=== PATIENT | female | born 1970 | race Caucasian/White ===

== ENCOUNTER → 2017-08-04 08:10 | Outpatient (CLI) | payer OTHER, SELFPAY ==
[2017-08-04 09:12] LABS: Absolute Lymphocyte Count 4.64 X10^3/ul (0.83-4.51); Absolute Neutrophil Count 4.4 X10^3/uL (2.0-7.7); Basophil# 0.02 X10^3/uL; Basophil% 0.2 % (0-1); Hematocrit 41.5 % (37-47); Hemoglobin 13.2 g/dl (12.0-15.0); Lymphocyte # 4.64 X10^3/ul (4.0); Lymphocyte % 46.4 % (19-41); Mean Corp Hgb Conc 31.8 g/gl (32-36); Mean Corpuscular Hgb 29.9 pg (27.0-32.0); Mean Corpuscular Volume 93.9 fL (81-99); Mean Platelet Vol. 8.8 fl (6.2-12.0); Monocyte# 0.66 X10^3/uL; Monocyte% 6.6 % (0-10); Neutrophil # 4.38 X10^3/uL (2.7-7.7); Neutrophil % 43.7 % (47-70); Platelet Count 351 K/mm3 (150-450); RBC Distribution Width CV 13.8 % (11.6-14.6); RBC Distribution Width SD 47.4 fl (35.1-43.9); Red Blood Count 4.42 M/mm3 (4.2-5.4)
[2017-08-04 09:13] LABS: POSITIVE COUNT NO; POSITIVE DIFFERENTIAL NO; POSITIVE MORPHOLOGY NO
[2017-08-04 09:37] LABS: ALB/GLOB Ratio 0.9 RATIO (0.9-2.4); AST(SGOT) 20 U/L (15-37); Alanine Aminotransfer ALT/SGPT 28 U/L (13-56); Albumin, Serum 3.6 g/dL (3.2-5.0); Alkaline Phosphatase 97 U/L (45-117); Anion Gap 8 (5-15); BUN 10 mg/dL (7-18); BUN/Creat Ratio 10.8 RATIO (10-20); Calcium,Total 8.8 mg/dL (8.5-10.1); Chloride 103 mmol/L (98-107); Creatinine, Serum 0.92 mg/dL (0.55-1.02); EST Glomerular Filtration Rate 70 mL/min (>60); Est Glom Filt Rate - Afr Amer 84 mL/min (>60); Globulin 3.9 g/dL (2.2-4.2); Glucose 148 mg/dL (74-106); Potassium 3.6 mmol/L (3.5-5.1); Protein, Total 7.5 g/dL (6.4-8.2); Sodium Level 136 mmol/L (136-145)
== END ==
PROVIDERS: Family Provider Family Medicine; PCP Family Medicine; Visit Provider Internal Medicine Rheumatology
DX: M06.4 Inflammatory polyarthropathy (principal); M35.00 Sjogren syndrome, unspecified; G43.909 Migraine, unspecified, not intractable, without status migrainosus; M51.36 Other intervertebral disc degeneration, lumbar region; Z79.899 Other long term (current) drug therapy
CPT/HCPCS: 36415; 80053; 85025

== ENCOUNTER 2017-08-26 11:57 | Emergency (ER) | payer OTHER, SELFPAY ==
[2017-08-26 11:58] VITALS: BP 134/84; PULSE 104; RESP 16; TEMP 36.6; O2SAT 99; BMI 41.1
--- NOTE | 2017-08-26 13:37 | ED.VISSUMM ---
- ER Visit Summary Date of Service: 08/26/17 Chief Complaint: Back pain History of Present Illness: The patient is a 47 F who works at the [employer]. Patient states that she has been lifting and doing more physically recently. 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 Since that time she has had a burning and aching down the midportion of her lumbar spine and somewhat into the left SI joint region. Patient states she has occasional radiation to her left leg. She has occasional tingling in her left leg. There has been no problems with bowel or bladder control. Patient is currently on methotrexate and prednisone for rheumatoid arthritis. She is already on Ultram and Flexeril as well. Physical Examination: Vital signs unremarkable. Patient sitting in a bedside chair. She is in no acute distress. Head and neck examination unremarkable. Heart is regular rate and rhythm. Lung sounds are clear. Abdomen is soft and nontender. Back examination was reproducible tenderness over the lumbar region midline as well as in the left SI joint. There is no ecchymosis. Neuro exam reveals good strength and sensation in the lower extremities on testing. She has strong distal pulses. Test Results: Because the patient is on methotrexate and prednisone I did a lumbar spine x-ray. This is read as evidence of spurs but no fracture. Emergency Department Course and Treatment: Patient is currently on Flexeril and Ultram without improvement in her pain. She was switched to Valium and a short course of Percocet. She will be given a prednisone burst as well as anti-inflammatories. She will follow-up with [facility]. Treatment Plan: [] Disposition: Discharge Impression: Lumbar strain This note was generated with [employer] dictation software. It may contain incorrect words, spelling, and punctuation that were not noted in review of the chart prior to signing ED Disposition - Plan for ED Patient: Disposition: Home or Assisted Living Chief Complaint: Back Instructions: ED Sprain Strain Lumbar Prescriptions: Oxycodone HCl/Acetaminophen [Percocet 5/325] 1 tablet PO Q6H PRN PRN 3 Days #12 tablet PRN Reason: Pain Diazepam [Valium] 5 mg PO Q8 PRN #10 tablet PRN Reason: Muscle Spasm Naproxen [Naprosyn] 500 mg PO BID PRN #20 tab Prednisone [Deltasone] 60 mg PO DAILY #15 tab Referrals: [facility] [[facility] PHYSICIANS] - 3-5 Days
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
[2017-08-26 15:44] VITALS: BP 132/91; PULSE 94; RESP 16; O2SAT 100
--- NOTE | 2017-08-26 16:09 | ED.DEP ---
ED Disposition - Plan for ED Patient: Disposition: Home or Assisted Living Chief Complaint: Back Instructions: ED Sprain Strain Lumbar Prescriptions: Oxycodone HCl/Acetaminophen [Percocet 5/325] 1 tablet PO Q6H PRN PRN 3 Days #12 tablet PRN Reason: Pain Diazepam [Valium] 5 mg PO Q8 PRN #10 tablet PRN Reason: Muscle Spasm Naproxen [Naprosyn] 500 mg PO BID PRN #20 tablet Prednisone [Deltasone] 60 mg PO DAILY #15 tablet Referrals: [facility] [GROUP OF PHYSICIANS] - 3-5 Days
[2017-08-26 16:19] VITALS: BP 132/91; PULSE 94; RESP 16; O2SAT 100
== END 2017-08-26 16:20 | disposition home or self-care (01) ==
PROVIDERS: Emergency Provider Emergency Medicine; Family Provider Family Medicine; PCP Family Medicine
DX: S39.012A Strain of muscle, fascia and tendon of lower back, initial encounter (principal); X50.1XXA Overexertion from prolonged static or awkward postures, initial encounter; Y93.F9 Activity, other caregiving; Y92.9 Unspecified place or not applicable; Y99.9 Unspecified external cause status; M06.9 Rheumatoid arthritis, unspecified; Z79.899 Other long term (current) drug therapy; Z79.52 Long term (current) use of systemic steroids; F41.9 Anxiety disorder, unspecified; F32.9 Major depressive disorder, single episode, unspecified; G43.909 Migraine, unspecified, not intractable, without status migrainosus
CPT/HCPCS: 72100; 99282

== ENCOUNTER → 2017-10-20 08:37 | Outpatient (CLI) | payer OTHER, SELFPAY ==
[2017-10-20 09:12] LABS: Absolute Lymphocyte Count 2.53 X10^3/ul (0.83-4.51); Absolute Neutrophil Count 4.9 X10^3/uL (2.0-7.7); Basophil# 0.02 X10^3/uL; Basophil% 0.3 % (0-1); Eosinophil# 0.28 X10^3/uL; Eosinophils% 3.5 % (0-5); Hematocrit 38.8 % (37-47); Hemoglobin 12.6 g/dl (12.0-15.0); Lymphocyte # 2.53 X10^3/ul (4.0); Lymphocyte % 31.7 % (19-41); Mean Corp Hgb Conc 32.5 g/gl (32-36); Mean Corpuscular Hgb 30.2 pg (27.0-32.0); Mean Platelet Vol. 9.2 fl (6.2-12.0); Monocyte% 2.5 % (0-10); Neutrophil # 4.93 X10^3/uL (2.7-7.7); Neutrophil % 61.7 % (47-70); Platelet Count 358 K/mm3 (150-450); RBC Distribution Width CV 14.4 % (11.6-14.6); RBC Distribution Width SD 47.3 fl (35.1-43.9); Red Blood Count 4.17 M/mm3 (4.2-5.4)
[2017-10-20 09:15] LABS: POSITIVE COUNT NO; POSITIVE DIFFERENTIAL NO; POSITIVE MORPHOLOGY NO
[2017-10-20 09:36] LABS: AST(SGOT) 33 U/L (15-37); Alanine Aminotransfer ALT/SGPT 46 U/L (13-56); Albumin, Serum 3.8 g/dL (3.2-5.0); Alkaline Phosphatase 78 U/L (45-117); Anion Gap 6 (5-15); BUN 12 mg/dL (7-18); BUN/Creat Ratio 12.7 RATIO (10-20); Chloride 104 mmol/L (98-107); Creatinine, Serum 0.94 mg/dL (0.55-1.02); EST Glomerular Filtration Rate 68 mL/min (>60); Est Glom Filt Rate - Afr Amer 82 mL/min (>60); Globulin 3.7 g/dL (2.2-4.2); Glucose 137 mg/dL (74-106); Protein, Total 7.5 g/dL (6.4-8.2); Sodium Level 138 mmol/L (136-145)
== END ==
PROVIDERS: Family Provider Family Medicine; PCP Family Medicine; Visit Provider Internal Medicine Rheumatology
DX: M06.4 Inflammatory polyarthropathy (principal); M35.00 Sjogren syndrome, unspecified; G43.909 Migraine, unspecified, not intractable, without status migrainosus; M51.36 Other intervertebral disc degeneration, lumbar region; Z79.899 Other long term (current) drug therapy
CPT/HCPCS: 36415; 80053; 85025

== ENCOUNTER → 2017-10-21 15:35 | Outpatient (CLI) | payer OTHER, SELFPAY ==
--- NOTE | 2017-10-21 15:38 | RAD_ITS ---
STUDY: X-RAY CHEST REASON FOR EXAM: Female, 47 years old. New medications. TECHNIQUE: PA and lateral views of the chest. COMPARISON: Prior comparison studies are not available for review at this time. FINDINGS: The lungs are clear and expanded. There is no demonstrated pleural abnormality. Normal size heart. Normal mediastinum and tiana. Normal visualized pulmonary arteries. Normal visualized aortic arch and descending thoracic aorta. Normal visualized thoracic spine. Normal visualized ribs, clavicles, and shoulders. There is no demonstrated abnormality of the visualized soft tissue structures of the upper abdomen. RAD/Chest PA and Lateral IMPRESSION: No active pulmonary disease. Electronically Signed: Stanley Childs MD at 3:12 EDT Tel , Service support ,
[2017-10-24 04:08] LABS: QNTFERON TB Ag Minus Nil Value 0 IU/mL (.); QNTFERON TB Ag Value 0.04 IU/mL (.); QNTFERON TB Mitogen Value > 10.00 IU/mL (.); QNTFERON TB Nil Value 0.04 IU/mL (.)
[2017-10-24 14:22] LABS: QNTIFERON TB Gold Negative (Negative)
== END ==
PROVIDERS: Family Provider Family Medicine; PCP Family Medicine; Visit Provider Internal Medicine Rheumatology
DX: M06.4 Inflammatory polyarthropathy (principal); M51.36 Other intervertebral disc degeneration, lumbar region; M35.00 Sjogren syndrome, unspecified; G43.909 Migraine, unspecified, not intractable, without status migrainosus; Z79.899 Other long term (current) drug therapy
CPT/HCPCS: 36415; 71046; 86480

== ENCOUNTER → 2017-12-01 15:18 | Outpatient (CLI) | payer OTHER, SELFPAY ==
[2017-12-01 18:03] LABS: Vitamin B12 507 pg/mL (211-911); Vitamin D,25 Hydroxy 17.3 ng/mL (29.95-100.01)
[2017-12-01 18:47] LABS: Iron 67 ug/dL (50-170); Thyroid Stim Hormone (TSH) 2.26 uIU/mL (0.358-3.74)
== END ==
PROVIDERS: Family Provider Family Medicine; PCP Family Medicine; Visit Provider Family Medicine
DX: G62.9 Polyneuropathy, unspecified (principal)
CPT/HCPCS: 36415; 82306; 82607; 83540; 83735; 84443

== ENCOUNTER → 2018-02-05 14:03 | Outpatient (CLI) | payer OTHER, SELFPAY ==
[2018-02-05 15:43] LABS: Absolute Lymphocyte Count 2.53 X10^3/ul (0.83-4.51); Absolute Neutrophil Count 3.6 X10^3/uL (2.0-7.7); Basophil# 0.02 X10^3/uL; Basophil% 0.3 % (0-1); Hemoglobin 12.7 g/dl (12.0-15.0); Lymphocyte # 2.53 X10^3/ul (4.0); Lymphocyte % 35.2 % (19-41); Mean Corp Hgb Conc 32.6 g/gl (32-36); Mean Corpuscular Hgb 29.5 pg (27.0-32.0); Mean Corpuscular Volume 90.7 fL (81-99); Mean Platelet Vol. 9.1 fl (6.2-12.0); Monocyte# 0.53 X10^3/uL; Monocyte% 7.4 % (0-10); Neutrophil # 3.59 X10^3/uL (2.7-7.7); Platelet Count 336 K/mm3 (150-450); RBC Distribution Width CV 13.2 % (11.6-14.6); RBC Distribution Width SD 43.1 fl (35.1-43.9); White Blood Count 7.2 K/mm3 (4.4-11.0)
[2018-02-05 15:56] LABS: POSITIVE COUNT NO; POSITIVE DIFFERENTIAL NO; POSITIVE MORPHOLOGY NO
[2018-02-05 16:06] LABS: ALB/GLOB Ratio 1.1 RATIO (0.9-2.4); AST(SGOT) 32 U/L (15-37); Alanine Aminotransfer ALT/SGPT 47 U/L (13-56); Albumin, Serum 3.8 g/dL (3.2-5.0); Alkaline Phosphatase 72 U/L (45-117); Anion Gap 9 (5-15); BUN 17 mg/dL (7-18); BUN/Creat Ratio 19.1 RATIO (10-20); Calcium,Total 8.9 mg/dL (8.5-10.1); Chloride 103 mmol/L (98-107); Creatinine, Serum 0.89 mg/dL (0.55-1.02); EST Glomerular Filtration Rate 73 mL/min (>60); Est Glom Filt Rate - Afr Amer 88 mL/min (>60); Globulin 3.4 g/dL (2.2-4.2); Glucose 119 mg/dL (74-106); Potassium 3.9 mmol/L (3.5-5.1); Protein, Total 7.2 g/dL (6.4-8.2); Sodium Level 138 mmol/L (136-145)
[2018-02-05 16:16] LABS: Vitamin D,25 Hydroxy 54.2 ng/mL (29.95-100.01)
== END ==
PROVIDERS: Nurse Practitioner Family; Family Provider Family Medicine; PCP Family Medicine; Referring Provider Family Medicine; Visit Provider Family Medicine
DX: E55.9 Vitamin D deficiency, unspecified (principal); R53.83 Other fatigue
CPT/HCPCS: 36415; 80053; 82306; 85025

== ENCOUNTER → 2018-05-18 16:40 | Outpatient (CLI) | payer SELFPAY ==
[2018-05-18 17:58] LABS: Absolute Lymphocyte Count 3.17 X10^3/ul (0.83-4.51); Absolute Neutrophil Count 4.8 X10^3/uL (2.0-7.7); Basophil# 0.02 X10^3/uL; Basophil% 0.2 % (0-1); Eosinophil# 0.32 X10^3/uL; Eosinophils% 3.6 % (0-5); Hematocrit 43.6 % (37-47); Hemoglobin 13.9 g/dl (12.0-15.0); Lymphocyte # 3.17 X10^3/ul (4.0); Lymphocyte % 35.6 % (19-41); Mean Corp Hgb Conc 31.9 g/gl (32-36); Mean Corpuscular Hgb 29.8 pg (27.0-32.0); Mean Corpuscular Volume 93.6 fL (81-99); Mean Platelet Vol. 9.2 fl (6.2-12.0); Monocyte# 0.62 X10^3/uL; Neutrophil # 4.76 X10^3/uL (2.7-7.7); Neutrophil % 53.5 % (47-70); Platelet Count 389 K/mm3 (150-450); RBC Distribution Width CV 13.8 % (11.6-14.6); RBC Distribution Width SD 45.7 fl (35.1-43.9); Red Blood Count 4.66 M/mm3 (4.2-5.4); White Blood Count 8.9 K/mm3 (4.4-11.0)
[2018-05-18 18:02] LABS: POSITIVE COUNT NO; POSITIVE DIFFERENTIAL NO; POSITIVE MORPHOLOGY NO
[2018-05-18 18:13] LABS: AST(SGOT) 16 U/L (15-37); Alanine Aminotransfer ALT/SGPT 26 U/L (13-56); Albumin, Serum 3.7 g/dL (3.2-5.0); Alkaline Phosphatase 76 U/L (45-117); Anion Gap 13 (5-15); BUN 13 mg/dL (7-18); BUN/Creat Ratio 13.1 RATIO (10-20); Chloride 104 mmol/L (98-107); Creatinine, Serum 0.99 mg/dL (0.55-1.02); EST Glomerular Filtration Rate 64 mL/min (>60); Est Glom Filt Rate - Afr Amer 77 mL/min (>60); Globulin 3.7 g/dL (2.2-4.2); Glucose 118 mg/dL (74-106); Potassium 4.1 mmol/L (3.5-5.1); Protein, Total 7.4 g/dL (6.4-8.2); Sodium Level 141 mmol/L (136-145)
== END ==
LOC: MTLAB 16:42
PROVIDERS: Family Provider Family Medicine; PCP Family Medicine; Referring Provider Internal Medicine Rheumatology; Visit Provider Internal Medicine Rheumatology
DX: M06.09 Rheumatoid arthritis without rheumatoid factor, multiple sites (principal); M35.00 Sjogren syndrome, unspecified; G43.909 Migraine, unspecified, not intractable, without status migrainosus; M51.36 Other intervertebral disc degeneration, lumbar region; Z79.899 Other long term (current) drug therapy
CPT/HCPCS: 36415; 80053; 85025

== ENCOUNTER → 2018-08-10 16:48 | Outpatient (CLI) | payer SELFPAY ==
[2018-08-10 17:47] LABS: Absolute Lymphocyte Count 4.82 X10^3/ul (0.83-4.51); Absolute Neutrophil Count 7.4 X10^3/uL (2.0-7.7); Basophil# 0.02 X10^3/uL; Basophil% 0.2 % (0-1); Eosinophil# 0.01 X10^3/uL; Eosinophils% 0.1 % (0-5); Hematocrit 42.2 % (37-47); Hemoglobin 13.7 g/dl (12.0-15.0); Lymphocyte # 4.82 X10^3/ul (4.0); Lymphocyte % 36.3 % (19-41); Mean Corp Hgb Conc 32.5 g/gl (32-36); Mean Corpuscular Hgb 30.1 pg (27.0-32.0); Mean Corpuscular Volume 92.7 fL (81-99); Mean Platelet Vol. 8.9 fl (6.2-12.0); Monocyte# 0.96 X10^3/uL; Monocyte% 7.2 % (0-10); Neutrophil # 7.43 X10^3/uL (2.7-7.7); Platelet Count 370 K/mm3 (150-450); RBC Distribution Width CV 13.9 % (11.6-14.6); RBC Distribution Width SD 46.5 fl (35.1-43.9); Red Blood Count 4.55 M/mm3 (4.2-5.4); White Blood Count 13.3 K/mm3 (4.4-11.0)
[2018-08-10 17:53] LABS: POSITIVE COUNT NO; POSITIVE DIFFERENTIAL NO; POSITIVE MORPHOLOGY NO
[2018-08-10 18:15] LABS: ALB/GLOB Ratio 1.1 RATIO (0.9-2.4); AST(SGOT) 20 U/L (15-37); Alanine Aminotransfer ALT/SGPT 37 U/L (13-56); Albumin, Serum 3.9 g/dL (3.2-5.0); Alkaline Phosphatase 80 U/L (45-117); Anion Gap 7 (5-15); BUN 20 mg/dL (7-18); BUN/Creat Ratio 20.8 RATIO (10-20); Calcium,Total 9.4 mg/dL (8.5-10.1); Chloride 103 mmol/L (98-107); Creatinine, Serum 0.96 mg/dL (0.55-1.02); EST Glomerular Filtration Rate 66 mL/min (>60); Est Glom Filt Rate - Afr Amer 80 mL/min (>60); Globulin 3.7 g/dL (2.2-4.2); Glucose 85 mg/dL (74-106); Potassium 3.9 mmol/L (3.5-5.1); Protein, Total 7.6 g/dL (6.4-8.2); Sodium Level 140 mmol/L (136-145)
== END ==
PROVIDERS: Family Provider Family Medicine; PCP Family Medicine; Referring Provider Internal Medicine Rheumatology; Visit Provider Internal Medicine Rheumatology
DX: M06.09 Rheumatoid arthritis without rheumatoid factor, multiple sites (principal); M35.00 Sjogren syndrome, unspecified; G43.909 Migraine, unspecified, not intractable, without status migrainosus; M51.36 Other intervertebral disc degeneration, lumbar region; Z79.899 Other long term (current) drug therapy
CPT/HCPCS: 36415; 80053; 85025

== ENCOUNTER → 2018-11-06 15:49 | Outpatient (CLI) | payer SELFPAY ==
[2018-11-06 17:24] LABS: Absolute Lymphocyte Count 3.49 X10^3/uL (0.83-4.51); Absolute Neutrophil Count 3.7 X10^3/uL (2.0-7.7); Basophil# 0.03 X10^3/uL; Basophil% 0.4 % (0-1); Eosinophil# 0.25 X10^3/uL; Eosinophils% 3.1 % (0-5); Hematocrit 42.5 % (37-47); Hemoglobin 14.1 g/dL (12.0-15.0); Lymphocyte # 3.49 X10^3/ul (4.0); Lymphocyte % 43.4 % (19-41); Mean Corp Hgb Conc 33.2 g/dL (32-36); Mean Corpuscular Hgb 30.9 pg (27.0-32.0); Mean Corpuscular Volume 93.2 fL (81-99); Mean Platelet Vol. 9.1 fl (6.2-12.0); Monocyte# 0.55 X10^3/uL; Monocyte% 6.8 % (0-10); NRBC Flagged by Analyzer 0 % (0-5); Neutrophil # 3.71 X10^3/uL (2.7-7.7); Neutrophil % 46.1 % (47-70); Platelet Count 359 K/mm3 (150-450); RBC Distribution Width CV 13.2 % (11.6-14.6); RBC Distribution Width SD 44.4 fl (35.1-43.9); Red Blood Count 4.56 M/mm3 (4.2-5.4); White Blood Count 8.1 K/mm3 (4.4-11.0)
[2018-11-06 17:39] LABS: AST(SGOT) 17 U/L (15-37); Alanine Aminotransfer ALT/SGPT 27 U/L (13-56); Albumin, Serum 3.7 g/dL (3.2-5.0); Alkaline Phosphatase 83 U/L (45-117); Anion Gap 8 (5-15); BUN 11 mg/dL (7-18); BUN/Creat Ratio 12.6 RATIO (10-20); Calcium,Total 9.2 mg/dL (8.5-10.1); Chloride 104 mmol/L (98-107); Creatinine, Serum 0.87 mg/dL (0.55-1.02); EST Glomerular Filtration Rate 74 mL/min (>60); Est Glom Filt Rate - Afr Amer 90 mL/min (>60); Globulin 3.7 g/dL (2.2-4.2); Glucose 110 mg/dL (74-106); Potassium 3.9 mmol/L (3.5-5.1); Protein, Total 7.4 g/dL (6.4-8.2); Sodium Level 137 mmol/L (136-145)
== END ==
PROVIDERS: Family Provider Family Medicine; PCP Family Medicine; Referring Provider Internal Medicine Rheumatology; Visit Provider Internal Medicine Rheumatology
DX: M06.09 Rheumatoid arthritis without rheumatoid factor, multiple sites (principal); M35.00 Sjogren syndrome, unspecified; G43.909 Migraine, unspecified, not intractable, without status migrainosus; M51.36 Other intervertebral disc degeneration, lumbar region; Z79.899 Other long term (current) drug therapy
CPT/HCPCS: 36415; 80053; 85025

== ENCOUNTER → 2019-02-05 16:47 | Outpatient (CLI) | payer SELFPAY ==
[2019-02-05 17:37] LABS: Absolute Lymphocyte Count 3.22 X10^3/uL (0.83-4.51); Absolute Neutrophil Count 4.6 X10^3/uL (2.0-7.7); Basophil# 0.05 X10^3/uL; Basophil% 0.5 % (0-1); Eosinophil# 0.55 X10^3/uL; Hematocrit 42.3 % (37-47); Hemoglobin 13.6 g/dL (12.0-15.0); Lymphocyte # 3.22 X10^3/ul (4.0); Mean Corp Hgb Conc 32.2 g/dL (32-36); Mean Corpuscular Hgb 30.4 pg (27.0-32.0); Mean Corpuscular Volume 94.6 fL (81-99); Monocyte# 0.69 X10^3/uL; Monocyte% 7.5 % (0-10); NRBC Flagged by Analyzer 0 % (0-5); Neutrophil # 4.64 X10^3/uL (2.7-7.7); Neutrophil % 50.6 % (47-70); Platelet Count 370 K/mm3 (150-450); RBC Distribution Width CV 13.8 % (11.6-14.6); RBC Distribution Width SD 46.8 fl (35.1-43.9); Red Blood Count 4.47 M/mm3 (4.2-5.4); White Blood Count 9.2 K/mm3 (4.4-11.0)
[2019-02-05 17:58] LABS: ALB/GLOB Ratio 1.1 RATIO (0.9-2.4); AST(SGOT) 32 U/L (15-37); Alanine Aminotransfer ALT/SGPT 45 U/L (13-56); Albumin, Serum 4.1 g/dL (3.2-5.0); Alkaline Phosphatase 78 U/L (45-117); Anion Gap 6 (5-15); BUN 16 mg/dL (7-18); Calcium,Total 9.3 mg/dL (8.5-10.1); Chloride 103 mmol/L (98-107); Creatinine, Serum 0.89 mg/dL (0.55-1.02); EST Glomerular Filtration Rate 73 mL/min (>60); Est Glom Filt Rate - Afr Amer 88 mL/min (>60); Globulin 3.8 g/dL (2.2-4.2); Glucose 92 mg/dL (74-106); Potassium 4.1 mmol/L (3.5-5.1); Protein, Total 7.9 g/dL (6.4-8.2); Sodium Level 137 mmol/L (136-145)
== END ==
PROVIDERS: Family Provider Family Medicine; PCP Family Medicine; Referring Provider Internal Medicine Rheumatology; Visit Provider Internal Medicine Rheumatology
DX: M06.09 Rheumatoid arthritis without rheumatoid factor, multiple sites (principal); M35.00 Sjogren syndrome, unspecified; G43.909 Migraine, unspecified, not intractable, without status migrainosus; M51.36 Other intervertebral disc degeneration, lumbar region; Z79.899 Other long term (current) drug therapy
CPT/HCPCS: 36415; 80053; 85025

== ENCOUNTER → 2019-05-14 15:33 | Outpatient (CLI) | payer SELFPAY ==
[2019-05-14 17:44] LABS: AST(SGOT) 41 U/L (15-37); Alanine Aminotransfer ALT/SGPT 62 U/L (13-56); Albumin, Serum 3.9 g/dL (3.2-5.0); Alkaline Phosphatase 90 U/L (45-117); Anion Gap 5 (5-15); BUN 15 mg/dL (7-18); BUN/Creat Ratio 14.4 RATIO (10-20); Calcium,Total 9.3 mg/dL (8.5-10.1); Chloride 106 mmol/L (98-107); Creatinine, Serum 1.04 mg/dL (0.55-1.02); EST Glomerular Filtration Rate 60 mL/min (>60); Est Glom Filt Rate - Afr Amer 73 mL/min (>60); Globulin 3.9 g/dL (2.2-4.2); Glucose 143 mg/dL (74-106); Potassium 4.5 mmol/L (3.5-5.1); Protein, Total 7.8 g/dL (6.4-8.2); Sodium Level 138 mmol/L (136-145)
[2019-05-14 17:45] LABS: Absolute Lymphocyte Count 3.38 X10^3/uL (0.83-4.51); Absolute Neutrophil Count 6.6 X10^3/uL (2.0-7.7); Basophil# 0.03 X10^3/uL; Basophil% 0.3 % (0-1); Eosinophils% 1.8 % (0-5); Hematocrit 43.3 % (37-47); Hemoglobin 13.3 g/dL (12.0-15.0); Lymphocyte # 3.38 X10^3/ul (4.0); Mean Corp Hgb Conc 30.7 g/dL (32-36); Mean Corpuscular Hgb 28.5 pg (27.0-32.0); Mean Corpuscular Volume 92.9 fL (81-99); Mean Platelet Vol. 9.1 fl (6.2-12.0); Monocyte# 0.66 X10^3/uL; Monocyte% 6.1 % (0-10); NRBC Flagged by Analyzer 0 % (0-5); Neutrophil # 6.59 X10^3/uL (2.7-7.7); Neutrophil % 60.5 % (47-70); Platelet Count 357 K/mm3 (150-450); Red Blood Count 4.66 M/mm3 (4.2-5.4); White Blood Count 10.9 K/mm3 (4.4-11.0)
== END ==
PROVIDERS: PCP Family Medicine; Referring Provider Internal Medicine Rheumatology; Visit Provider Internal Medicine Rheumatology
DX: M06.09 Rheumatoid arthritis without rheumatoid factor, multiple sites (principal); M35.00 Sjogren syndrome, unspecified; G43.909 Migraine, unspecified, not intractable, without status migrainosus; M51.36 Other intervertebral disc degeneration, lumbar region; Z79.899 Other long term (current) drug therapy
CPT/HCPCS: 36415; 80053; 85025

== ENCOUNTER → 2019-09-01 15:52 | Outpatient (CLI) | payer SELFPAY ==
[2019-09-01 18:08] LABS: Absolute Lymphocyte Count 3.64 X10^3/uL (0.83-4.51); Absolute Neutrophil Count 6.1 X10^3/uL (2.0-7.7); Basophil# 0.04 X10^3/uL; Basophil% 0.4 % (0-1); Eosinophil# 0.32 X10^3/uL; Hemoglobin 13.8 g/dL (12.0-15.0); Lymphocyte # 3.64 X10^3/ul (4.0); Lymphocyte % 33.6 % (19-41); Mean Corp Hgb Conc 32.1 g/dL (32-36); Mean Corpuscular Hgb 29.1 pg (27.0-32.0); Mean Corpuscular Volume 90.7 fL (81-99); Monocyte# 0.68 X10^3/uL; Monocyte% 6.3 % (0-10); NRBC Flagged by Analyzer 0 % (0-5); Neutrophil # 6.11 X10^3/uL (2.7-7.7); Neutrophil % 56.3 % (47-70); Platelet Count 395 K/mm3 (150-450); RBC Distribution Width SD 46.3 fl (35.1-43.9); Red Blood Count 4.74 M/mm3 (4.2-5.4); White Blood Count 10.8 K/mm3 (4.4-11.0)
[2019-09-01 18:23] LABS: ALB/GLOB Ratio 0.9 RATIO (0.9-2.4); AST(SGOT) 32 U/L (15-37); Alanine Aminotransfer ALT/SGPT 59 U/L (13-56); Albumin, Serum 3.8 g/dL (3.2-5.0); Alkaline Phosphatase 95 U/L (45-117); Anion Gap 5 (5-15); BUN 15 mg/dL (7-18); BUN/Creat Ratio 15.6 RATIO (10-20); Calcium,Total 9.5 mg/dL (8.5-10.1); Chloride 105 mmol/L (98-107); Creatinine, Serum 0.96 mg/dL (0.55-1.02); EST Glomerular Filtration Rate 66 mL/min (>60); Est Glom Filt Rate - Afr Amer 80 mL/min (>60); Globulin 4.1 g/dL (2.2-4.2); Glucose 119 mg/dL (74-106); Potassium 4.2 mmol/L (3.5-5.1); Protein, Total 7.9 g/dL (6.4-8.2); Sodium Level 138 mmol/L (136-145)
== END ==
PROVIDERS: PCP Family Medicine; Referring Provider Internal Medicine Rheumatology; Visit Provider Internal Medicine Rheumatology
DX: M06.09 Rheumatoid arthritis without rheumatoid factor, multiple sites (principal); Z79.899 Other long term (current) drug therapy; M35.00 Sjogren syndrome, unspecified; G43.909 Migraine, unspecified, not intractable, without status migrainosus; M51.36 Other intervertebral disc degeneration, lumbar region
CPT/HCPCS: 36415; 80053; 85025

== ENCOUNTER → 2019-11-12 16:47 | Outpatient (CLI) | payer SELFPAY ==
[2019-11-12 17:23] LABS: Absolute Lymphocyte Count 4.39 X10^3/uL (0.83-4.51); Absolute Neutrophil Count 2.5 X10^3/uL (2.0-7.7); Basophil# 0.04 X10^3/uL; Basophil% 0.5 % (0-1); Eosinophil# 0.84 X10^3/uL; Hematocrit 42.3 % (37-47); Hemoglobin 13.8 g/dL (12.0-15.0); Lymphocyte # 4.39 X10^3/ul (4.0); Lymphocyte % 52.3 % (19-41); Mean Corp Hgb Conc 32.6 g/dL (32-36); Mean Corpuscular Hgb 30.1 pg (27.0-32.0); Mean Corpuscular Volume 92.4 fL (81-99); Mean Platelet Vol. 9.2 fl (6.2-12.0); Monocyte# 0.65 X10^3/uL; Monocyte% 7.7 % (0-10); NRBC Flagged by Analyzer 0 % (0-5); Neutrophil # 2.47 X10^3/uL (2.7-7.7); Neutrophil % 29.4 % (47-70); Platelet Count 353 K/mm3 (150-450); RBC Distribution Width CV 12.8 % (11.6-14.6); RBC Distribution Width SD 43.1 fl (35.1-43.9); Red Blood Count 4.58 M/mm3 (4.2-5.4); White Blood Count 8.4 K/mm3 (4.4-11.0)
[2019-11-12 18:20] LABS: ALB/GLOB Ratio 0.9 RATIO (0.9-2.4); AST(SGOT) 49 U/L (15-37); Alanine Aminotransfer ALT/SGPT 57 U/L (13-56); Albumin, Serum 3.4 g/dL (3.2-5.0); Alkaline Phosphatase 85 U/L (45-117); Anion Gap 2 (5-15); BUN 15 mg/dL (7-18); BUN/Creat Ratio 19.9 RATIO (10-20); Chloride 107 mmol/L (98-107); Creatinine, Serum 0.75 mg/dL (0.55-1.02); EST Glomerular Filtration Rate 88 mL/min (>60); Est Glom Filt Rate - Afr Amer 106 mL/min (>60); Globulin 3.8 g/dL (2.2-4.2); Glucose 152 mg/dL (74-106); Potassium 3.6 mmol/L (3.5-5.1); Protein, Total 7.2 g/dL (6.4-8.2); Sodium Level 137 mmol/L (136-145)
== END ==
PROVIDERS: PCP Family Medicine; Referring Provider Internal Medicine Rheumatology; Visit Provider Internal Medicine Rheumatology
DX: M06.09 Rheumatoid arthritis without rheumatoid factor, multiple sites (principal); M35.00 Sjogren syndrome, unspecified; G43.909 Migraine, unspecified, not intractable, without status migrainosus; M51.36 Other intervertebral disc degeneration, lumbar region; Z79.899 Other long term (current) drug therapy
CPT/HCPCS: 36415; 80053; 85025

== ENCOUNTER 2021-05-15 08:49 | Outpatient (CLI) | payer MEDICAID, SELFPAY ==
[2021-05-15 10:41] LABS: Anion Gap 8 (5-15); BUN 12 mg/dL (7-18); BUN/Creat Ratio 12.8 RATIO (10-20); Calcium,Total 9.6 mg/dL (8.5-10.1); Chloride 102 mmol/L (98-107); Creatinine, Serum 0.93 mg/dL (0.55-1.02); EST Glomerular Filtration Rate 68 mL/min (>60); Est Glom Filt Rate - Afr Amer 82 mL/min (>60); Glucose 226 mg/dL (74-106); Potassium 4.1 mmol/L (3.5-5.1); Sodium Level 134 mmol/L (136-145); Thyroid Stim Hormone (TSH) 2.05 uIU/mL (0.358-3.74)
[2021-05-15 10:48] LABS: Vitamin D,25 Hydroxy 40.1 ng/mL
== END 2021-05-15 23:59 | disposition short-term general hospital (02) ==
LOC: MTLAB 08:51
PROVIDERS: PCP Family Medicine; Referring Provider Family Medicine; Visit Provider Family Medicine
DX: R00.2 Palpitations (principal); M79.7 Fibromyalgia
CPT/HCPCS: 36415; 80048; 82306; 83735; 84443

== ENCOUNTER → 2021-05-28 12:48 | Outpatient (CLI) | payer MEDICAID, SELFPAY ==
[2021-05-28 12:54] LABS: Bacteria 0 SEEN /hpf (None Seen); Mucous, Urine 0 SEEN /hpf (<or=2+); Red Blood Cells-Urine 0 SEEN /hpf (0-5); Squamous Epithelial Cells - UA 0 SEEN /hpf (5-10); White Blood Cells 0 SEEN /hpf (0-5)
[2021-05-28 15:22] LABS: Color, Urine Yellow (Yellow); Glucose, Dipstick Normal (Normal); Ketone-Dipstick Negative (Negative); Leukocyte Esterase-Dipstick Negative /ul (Negative); Nitrite-Dipstick Negative (Negative); Occult Blood-Urine Negative /ul (Negative); Protein-Dipstick Negative (Negative); Specific Gravity, Urine 1.015 (1.002-1.030); Urine Bilirubin Dipstick Negative (Negative); Urine Clarity Clear (Clear); Urine Urobilinogen Normal (Normal)
[2021-05-28 15:49] LABS: Anion Gap 10 (5-15); BUN 14 mg/dL (7-18); BUN/Creat Ratio 15.2 RATIO (10-20); Calcium,Total 10.4 mg/dL (8.5-10.1); Chloride 103 mmol/L (98-107); Cholesterol 311 mg/dL (200); Creatinine, Serum 0.92 mg/dL (0.55-1.02); EST Glomerular Filtration Rate 69 mL/min (>60); Est Glom Filt Rate - Afr Amer 83 mL/min (>60); Glucose 171 mg/dL (74-106); High Density Lipoprotein 36 mg/dL; Potassium 4.1 mmol/L (3.5-5.1); Sodium Level 136 mmol/L (136-145); Triglycerides 792 mg/dL
[2021-05-28 16:00] LABS: Microalbumin,Random Urine 32.8 mg/L (NO RANGE EST.)
== END ==
PROVIDERS: PCP Family Medicine
DX: N20.1 Calculus of ureter (principal); E11.65 Type 2 diabetes mellitus with hyperglycemia
CPT/HCPCS: 36415; 80048; 80061; 81001; 82043

== ENCOUNTER → 2022-01-25 | Outpatient (CLI) | payer MEDICAID, SELFPAY ==
[2022-01-25 13:22] LABS: AST(SGOT) 9 U/L (15-37); Alanine Aminotransfer ALT/SGPT 24 U/L (13-56); Albumin, Serum 3.7 g/dL (3.2-5.0); Alkaline Phosphatase 90 U/L (45-117); Anion Gap 8 (5-15); BUN 18 mg/dL (7-18); BUN/Creat Ratio 18.8 RATIO (10-20); Calcium,Total 9.7 mg/dL (8.5-10.1); Chloride 104 mmol/L (98-107); Cholesterol 327 mg/dL (200); Creatinine, Serum 0.96 mg/dL (0.55-1.02); EST Glomerular Filtration Rate 66 mL/min (>60); Est Glom Filt Rate - Afr Amer 80 mL/min (>60); Globulin 3.8 g/dL (2.2-4.2); Glucose 126 mg/dL (74-106); High Density Lipoprotein 46 mg/dL; Potassium 4.3 mmol/L (3.5-5.1); Protein, Total 7.5 g/dL (6.4-8.2); Sodium Level 136 mmol/L (136-145); Triglycerides 622 mg/dL
== END | disposition home or self-care (01) ==
LOC: MTLAB 10:06
PROVIDERS: PCP Family Medicine; Referring Provider Family Medicine; Visit Provider Family Medicine
DX: E11.65 Type 2 diabetes mellitus with hyperglycemia (principal)
CPT/HCPCS: 36415; 80053; 80061

== ENCOUNTER 2022-04-09 08:06 | Observation (INO) | payer MEDICAID, SELFPAY ==
[2022-04-09] VITALS (10 sets, daily range): BP systolic 134–156; BP diastolic 86–115; PULSE 69–93; RESP 16–20; TEMP 36–36.7; O2SAT 95–99; BMI 37.7; BMI 38.7
--- NOTE | 2022-04-09 08:16 | ED.RN ---
THIS RN INFORMED PRIMARY NURSE AND DR. KEITH OF PT SX. AT 0813. PER DR. KEITH, PT TO BE SEEN NO STROKE ALERT AT THIS TIME.
--- NOTE | 2022-04-09 08:28 | CT_ITS ---
STUDY: CTA HEAD AND NECK WITH CONTRAST REASON FOR EXAM: Female, 51 years old. Speech abn, R side weak/numb, diplopia - episodes RADIATION DOSAGE (If Supplied By Facility): CTDIvol = ( 28.78 ) mGy, DLP = ( 1501.35 ) mGycm TECHNIQUE: CT angiography was performed with a multi-detector CT scanner. Data acquisition was obtained from the skull base through the vertex following intravenous administration of IV 100mL [id number]-[id number]. MIP images were reconstructed from the axial data set. Post-processing of the angiographic images was performed, with multiplanar reformation and 3D reconstruction. Individualized dose optimization techniques were used for this CT. COMPARISON: No relevant priors. FINDINGS: Normal bilateral petrous carotid arteries. Normal right cavernous carotid artery with a normal supraclinoid bifurcation. Normal left cavernous carotid artery with a normal supraclinoid bifurcation. Normal right A1 segment of the anterior cerebral artery. Normal left A1 segment of the anterior cerebral artery. Normal intact anterior communicating artery (ACOM). Normal bilateral A2 segments of the anterior cerebral arteries. Normal right M1 and M2 segments of the middle cerebral arteries, with a normal M1 bifurcation. Normal left M1 and M2 segments of the middle cerebral arteries, with a normal M1 bifurcation. No visible right posterior communicating artery (PCOM). No visible left posterior communicating artery (PCOM). Normal bilateral vertebral arteries. Normal basilar artery with a normal basilar bifurcation. The visualized bilateral superior cerebellar (SCA) arteries are normal. Normal bilateral P1, P2 and visualized P3 segments of the posterior cerebral arteries. There is no demonstrated aneurysm of the [place]. There is no demonstrated abnormality of the visualized brain. AORTIC ARCH: Normal visualized aortic arch. Normal origins of the brachiocephalic, left common carotid, and left subclavian arteries. RIGHT CAROTID ARTERIES: Normal right common carotid artery (CCA). Normal right carotid bulb. Normal origin of the right internal carotid (ICA) artery without a hemodynamically significant stenosis. Normal visualized cervical portion of the right internal carotid artery. Normal origin of the right external carotid artery (ECA). LEFT CAROTID ARTERIES: Normal left common carotid artery (CCA). Normal left carotid bulb. Normal origin of the left internal carotid (ICA) artery without a hemodynamically significant stenosis. Normal visualized cervical portion of the left internal carotid artery. Normal origin of the left external carotid artery (ECA). VERTEBRAL ARTERIES: Normal bilateral codominant vertebral arteries. IMPRESSION: 1. Normal CTA Head and neck with contrast. 2. Incidentally included is 1.1 x 0.9 cm hypodense nodule in the right thyroid lobe. ACR White Paper guidelines (Johnnie JK, et al. JACR 2015;12(2):143-50) suggest no follow-up is necessary. 3. Multiple small benign reactive nodes in the suprahyoid neck. Electronically Signed: Chase Moffett MD at 9:41 EST , EXAM: CT HEAD WITHOUT INTRAVENOUS CONTRAST CLINICAL INDICATION: speech abn, R side weak/numb, diplopia - episodes TECHNIQUE: Multiple axial images were obtained of the head without intravenous contrast. This CT exam was performed using one or more of the following dose reduction techniques: automated exposure control, adjustment of the mA and/or kV according to patient size, and/or use of iterative reconstruction technique. This report was created using [employer] report generation technology. RADIATION DOSE: CTDIvol = 28.78 mGy, DLP = 1501.35 mGy-cm COMPARISON: None. FINDINGS: BRAIN AND EXTRA-AXIAL SPACES: Unremarkable. No intra- or extra-axial hemorrhage. No evidence of acute infarct. No intracranial mass or mass effect. There is preservation of the resendez/white matter interface. Posterior fossa structures are unremarkable. Ventricles are appropriate for age. No hydrocephalus. Basal cisterns are patent. BONES/JOINTS: Unremarkable. No discrete lytic or blastic abnormalities. SINUSES: Unremarkable as visualized. Clear. MASTOID AIR CELLS: Unremarkable. Clear. ORBITS: Visualized globes, extraocular muscles, optic nerves and retrobulbar fat appear unremarkable. CT/CTA Head AND Neck W/ Contrast IMPRESSION: Negative head/brain CT without intravenous contrast. Electronically Signed: Chase Moffett MD at 9:32 EST ,
--- NOTE | 2022-04-09 08:31 | ED.VIS.STROK ---
HPI History of Present Illness Chief Complaint: Dizziness Informant: patient Narrative Narrative: Patient presents early in the morning after she got to work and was having trouble speaking and feeling weakness and numbness on her right side extremities. She states she woke up with some symptoms feeling disoriented this morning, she went to bed normal last night she thinks, she did take an Ambien last night but usually does not wake up like this on nights when she does this. She does not remember what time she went to bed last night. She has had episodes like this for months off and on. She has not presented for medical attention or had testing for any of this. She does have a history of migraines and states often she gets 1 with these episodes. She denies any falls or head injuries but does admit that she feels lightheaded now and often with these episodes, and has had syncopal episodes with these before but not this morning. She states the symptoms this morning have been there for at least 2 hours but again then later admits that she woke up with symptoms before that. She cannot give specifics and she has trouble answering yes or no questions, but not due to speech, telling me that she does not know where she is not sure. She denies any recent illness. She takes medications for diabetes, she does not know her medications and searches for a list which is congruent with what we see in the EMR. [facility] Medical History Type 2 diabetes mellitus Home Medications cyclobenzaprine 10 mg tablet 10 mg PO TID PRN Pain 08/26/17 [History Last Taken Unknown] diazepam 5 mg tablet 5 mg PO Q8 PRN Muscle Spasm ##10 08/26/17 [Rx Last Taken Unknown] folic acid 1 mg tablet 2 mg PO DAILY 08/26/17 [History Last Taken Unknown] leucovorin calcium 15 mg tablet 25 mg PO SA 08/26/17 [History Last Taken Unknown] methotrexate sodium 2.5 mg tablet 17 mg PO QWEEK 08/26/17 [History Last Taken Unknown] metoprolol succinate 50 mg tablet,extended release 24 hr (Toprol XL) 50 mg PO DAILY 08/26/17 [History Last Taken Unknown] naproxen 500 mg tablet 500 mg PO BID PRN #20 tabs 08/26/17 [Rx Last Taken Unknown] oxycodone-acetaminophen 5 mg-325 mg tablet 1 tab PO Q6H PRN PRN Pain 3 days ##12 08/26/17 [Rx Last Taken Unknown] prednisone 20 mg tablet 60 mg PO DAILY #15 tabs 08/26/17 [Rx Last Taken Unknown] prednisone 5 mg tablet 5 mg PO DAILY 08/26/17 [History Last Taken Unknown] sertraline 100 mg tablet 100 mg PO DAILY 08/26/17 [History Last Taken Unknown] sumatriptan succinate 100 mg tablet (Imitrex) 100 mg PO .X1 PRN 08/26/17 [History Last Taken Unknown] tramadol 50 mg tablet 50 mg PO PRN PRN Pain 08/26/17 [History Last Taken Unknown] zolpidem 12.5 mg tablet,extended release,multiphase (Ambien CR) 12.5 mg PO QHS PRN PRN Sleep 08/26/17 [History Last Taken Unknown] Allergy/AdvReac Type Severity Reaction Status Date / Time Sulfa (Sulfonamide Allergy Hives Verified 04/09/22 08:06 Antibiotics) Social History Smoking Status: Never smoker ROS ROS ED Review of Systems ROS Unobtainable: other Details: limited ROS - Pt often responds to yes/no questions w/ I'm not sure Constitutional Constitutional ED: Denies chills or fever(s) Eyes Eyes: Reports change in vision and diplopia ENT ENT ED: Denies rhinorrhea or sore throat Cardiovascular Cardiovascular: Denies chest pain or palpitations Respiratory/Chest Respiratory/Chest: Denies cough or dyspnea Gastrointestinal Gastrointestinal: Denies diarrhea or vomiting Genitourinary Genitourinary ED: Denies dysuria or hematuria Musculoskeletal Musculoskeletal: Denies back pain or neck pain Integumentary Denies abscess or rash Neurologic Neurologic: Reports as per HPI, abnormal speech, confusion, dizziness, headache(s), paresthesias and weakness; Denies vertigo Psychiatric Psychiatric: Denies suicidal thoughts EXAM Physical Exam Const Vital Signs: 04/09/22 08:07 Temperature 96.8 F L Temperature Source Temporal Pulse Rate 93 Respiratory Rate 16 Blood Pressure 136/98 H Blood Pressure Mean 110 Pulse Ox 97 Oxygen Delivery Method Room Air Positive well nourished, well developed and obese General Appearance ED: well developed and NAD Nutritional Appearance: obese HEENT Reports moist mucous membranes normocephalic and atraumatic Eyes PERRL and EOMs intact bilaterally Eyes Narrative: visual navarrete grossly intact Neck full ROM, no lymphadenopathy and supple Resp normal respiratory effort and clear to auscultation bilaterally Cardio regular rate, regular rhythm and no murmurs GI non-tender and non-distended Auscultation: normoactive bowel sounds Palpation: soft Back/Spine no CVA tenderness General Back: other FROM Extremity normal to inspection General Extremety ED: Negative for edema, pulses abnormal or tenderness General Extremity: Negative for edema or pulses abnormal Neuro oriented x3 and CN's II-XII intact bilaterally Neuro Narrative: Mild decrease sensation to light touch right upper and lower extremities compared with the left. Patient unable to tell if difference in sensation right versus left sides of face. No apparent other cranial nerve deficit with regards to motor function. No ptosis. Some mild loss of fluency without dysarthria. Sensorium / Orientation: awake and alert Motor Exam: strength 5/5 throughout Psych Mood & Affect: anxious Skin no rashes or lesions noted and no wounds NIHSS NIHSS Initial: 1a Level of Consciousness: 0 1b LOC Questions (Score 2 if aphasic/stupor): 0 1c LOC Commands (Only score 1st attempt): 0 2 Best Gaze (If aphasic, use reflexive mvmts.): 0 3 Visual: 0 4 Facial Palsy: 0 5 Motor Arm Right (UN = amputation/fusion): 0 5 Motor Arm Left: 0 6 Motor Leg Right: 0 6 Motor Leg Left: 0 7 Limb ataxia (Only + if out of proportion): 0 8 Sensory (Aphasia/stupor=0 or 1, coma=2): 1 9 Best Language: 1 10 Dysarthria (mute, coma=2, intubated=UN): 0 11 Extinction and Inattention (only scored if +): 0 Total Score: 2 MDM MDM MDM Narrative Medical decision making narrative: Patient's work-up is negative including metabolic work-up, EKG, troponin, CT plain and CTA of the head and neck ruling out any arterial aneurysms. I do not think the patient is having a stroke, especially given the history of having 5 to 10-minute episodes for the past several months and now having at least hours long episode. Differential here includes subclinical or clinical seizure activity, she has not had any convulsions here in ED, migraine with atypical/neurologic symptoms/features, and/or other uncommon neurologic disorder such as neurosarcoidosis. We will admit the patient for further work-up here, discussed with hospitalist. Lab Data Attestation: I reviewed the patient's lab results. Labs: Laboratory Results - last 24 hr 04/09/22 04/09/22 04/09/22 08:16 08:36 08:36 WBC 7.1 RBC 4.73 Hgb 13.2 Hct 41.5 MCV 87.7 MCH 27.9 MCHC 31.8 L RDW Std Deviation 41.9 RDW Coeff of Alexander 13.0 Plt Count 376 MPV 8.7 Immature Gran % (Auto) 0.400 Neut % (Auto) 64.8 Lymph % (Auto) 28.4 Tift % (Auto) 5.0 Eos % (Auto) 1.1 Baso % (Auto) 0.3 Absolute Neuts (auto) 4.6 Absolute Lymphs (auto) 2.00 Nucleated RBC % 0 Sodium 137 Potassium 4.2 Chloride 106 Carbon Dioxide 26.0 Anion Gap 5 BUN 15 Creatinine 0.98 Estim Creat Clear Calc 52.40 Est GFR (MDRD) Af Amer 77 Est GFR (MDRD) Non-Af 64 BUN/Creatinine Ratio 15.3 Glucose 168 H Calcium 9.0 Troponin I High Sens < 3 L POC Glucose 161 H Radiography Diagnostic Testing: Clinical Impression(s) from Imaging Studies Head/Neck CTA 04/09/22 08:28 IMPRESSION: Negative head/brain CT without intravenous contrast. Electronically Signed: Chase Moffett MD at 9:32 EST , Rhythm Strip Rhythm Strip: Sinus Rhythm Rate: 85 Ectopy: None EKG Initial EKG: Attestation: I personally reviewed and interpreted this EKG as follows: Interpretation: Sinus Rhythm and No Acute Injury Pattern Comments: Normal EKG Stroke Documentation Questions Stroke Team Activated: No (Woke up with some symptoms, intermittent episodes for months, normal VS) Discharge Plan Triage Chief Complaint: Dizziness ED Provider: Jasno Rendon Dx/Rx/DC Orders Clinical Impression: Acute right hemiparesis, Difficulty with speech, Diplopia Prescriptions: No Action cyclobenzaprine 10 MG tablet 10 mg PO TID PRN (Reason: Pain) Label Comments: metoprolol succinate [Toprol XL] 50 MG Tab.Er.24h 50 mg PO DAILY Label Comments: sumatriptan succinate [Imitrex] 100 MG tablet 100 mg PO .X1 PRN sertraline 100 MG tablet 100 mg PO DAILY Label Comments: prednisone 5 MG tablet 5 mg PO DAILY Label Comments: tramadol 50 MG tablet 50 mg PO PRN PRN (Reason: Pain) Label Comments: leucovorin calcium 15 MG tablet 25 mg PO SA methotrexate sodium 2.5 MG tablet 17 mg PO QWEEK Label Comments: folic acid 1 MG tablet 2 mg PO DAILY zolpidem [Ambien CR] 12.5 MG Tab.Sa 12.5 mg PO QHS PRN PRN (Reason: Sleep) diazepam 5 MG tablet 5 mg PO Q8 PRN (Reason: Muscle Spasm) Qty: 10 0RF oxycodone-acetaminophen 1 TABLET tablet 1 tab PO Q6H PRN PRN (Reason: Pain) 3 Days Qty: 12 0RF naproxen 500 MG tablet 500 mg PO BID PRN Qty: 20 0RF prednisone 20 MG tablet 60 mg PO DAILY Qty: 15 0RF Rx Instructions: With food Primary Care Provider: Leandro Diallo Referrals: Leandro Diallo MD [Primary Care Provider] - Disposition Disposition: Acute Care Hospital [facility]
[2022-04-09 08:35] LABS: Bedside Glucose 161 mg/dL (74-106)
[2022-04-09 08:40] LABS: Absolute Neutrophil Count 4.6 X10^3/uL (2.0-7.7); Basophil# 0.02 X10^3/uL; Basophil% 0.3 % (0-1); Eosinophil# 0.08 X10^3/uL; Eosinophils% 1.1 % (0-5); Hematocrit 41.5 % (37-47); Hemoglobin 13.2 g/dL (12.0-15.0); Lymphocyte % 28.4 % (19-41); Mean Corp Hgb Conc 31.8 g/dL (32-36); Mean Corpuscular Hgb 27.9 pg (27.0-32.0); Mean Corpuscular Volume 87.7 fL (81-99); Mean Platelet Vol. 8.7 fl (6.2-12.0); Monocyte# 0.35 X10^3/uL; NRBC Flagged by Analyzer 0 % (0-5); Neutrophil # 4.57 X10^3/uL (2.7-7.7); Neutrophil % 64.8 % (47-70); Platelet Count 376 K/mm3 (150-450); RBC Distribution Width SD 41.9 fl (35.1-43.9); Red Blood Count 4.73 M/mm3 (4.2-5.4); White Blood Count 7.1 K/mm3 (4.4-11.0)
[2022-04-09 08:55] LABS: Anion Gap 5 (5-15); BUN 15 mg/dL (7-18); BUN/Creat Ratio 15.3 RATIO (10-20); Chloride 106 mmol/L (98-107); Creatinine, Serum 0.98 mg/dL (0.55-1.02); EST Glomerular Filtration Rate 64 mL/min (>60); Est Glom Filt Rate - Afr Amer 77 mL/min (>60); Glucose 168 mg/dL (74-106); Potassium 4.2 mmol/L (3.5-5.1); Sodium Level 137 mmol/L (136-145); Troponin-I HS < 3 pg/mL (3.0-54.0)
--- NOTE | 2022-04-09 11:07 | HP.PCM.HOS_ITS ---
HPI - General General Date of Admission: 04/09/22 Date of Service: 04/09/22 Chief Complaint: Change in status HPI Narrative MJ OLEARY, is a 51 F with a history of rheumatoid arthritis who presents to [facility] 04/09 after she was sent from work for bizarre behavior. Somewhat poor historian but she reports that she has intermittently been having problems with passing out as well as right-sided weakness and generally just feeling unwell. She reports the falls/passing out episodes have been over the past few weeks and occur at random, does not know if she is had any seizure-like activity but wakes up and is not confused, reports things usually go black before she passes out and is usually standing up though did hav e 1 episode where she was sitting at her table and slumped over. Had difficulty describing these episodes further. Also notes intermittent right-sided weaker than left, said she had some double vision earlier today for about 10 minutes, feels she has slightly delayed speech. Denies rashes is in weight, night sweats, no headache and aside from brief double vision earlier today no changes in vision, no problems swallowing. Did have a new medication change as terbinafine was added for onychomycosis. Was unable to recall other medications except that she takes one fourth of a prednisone. Denies drug use but does take Ambien nightly. Denies smoking, denies frequent alcohol use. [facility] Medical History Type 2 diabetes mellitus Home Medications cyclobenzaprine 10 mg tablet 10 mg PO TID PRN Pain 08/26/17 [History Last Taken Unknown] diazepam 5 mg tablet 5 mg PO Q8 PRN Muscle Spasm ##10 08/26/17 [Rx Last Taken Unknown] folic acid 1 mg tablet 2 mg PO DAILY 08/26/17 [History Last Taken Unknown] leucovorin calcium 15 mg tablet 25 mg PO SA 08/26/17 [History Last Taken Unknown] methotrexate sodium 2.5 mg tablet 17 mg PO QWEEK 08/26/17 [History Last Taken Unknown] metoprolol succinate 50 mg tablet,extended release 24 hr (Toprol XL) 50 mg PO DAILY 08/26/17 [History Last Taken Unknown] naproxen 500 mg tablet 500 mg PO BID PRN #20 tabs 08/26/17 [Rx Last Taken Unknown] oxycodone-acetaminophen 5 mg-325 mg tablet 1 tab PO Q6H PRN PRN Pain 3 days ##12 08/26/17 [Rx Last Taken Unknown] prednisone 20 mg tablet 60 mg PO DAILY #15 tabs 08/26/17 [Rx Last Taken Unknown] prednisone 5 mg tablet 5 mg PO DAILY 08/26/17 [History Last Taken Unknown] sertraline 100 mg tablet 100 mg PO DAILY 08/26/17 [History Last Taken Unknown] sumatriptan succinate 100 mg tablet (Imitrex) 100 mg PO .X1 PRN 08/26/17 [History Last Taken Unknown] tramadol 50 mg tablet 50 mg PO PRN PRN Pain 08/26/17 [History Last Taken Unknown] zolpidem 12.5 mg tablet,extended release,multiphase (Ambien CR) 12.5 mg PO QHS PRN PRN Sleep 08/26/17 [History Last Taken Unknown] Allergy/AdvReac Type Severity Reaction Status Date / Time Sulfa (Sulfonamide Allergy Hives Verified 04/09/22 08:06 Antibiotics) Social History Smoking Status: Never smoker ROS Constitutional Constitutional: Denies change in weight, chills, fever(s) or night sweats Eyes Eyes: Reports other Details: Had brief episode of double vision earlier today for 10 minutes ENT HEENT: Denies headache(s), nasal congestion or sore throat Cardiovascular Cardiovascular: Denies chest pain or palpitations Respiratory/Chest Respiratory/Chest: Denies cough or productive cough Gastrointestinal Gastrointestinal: Reports other Details: Has had some constipation ; Denies abdominal pain Genitourinary Genitourinary: Reports other Details: denies changes in urination Musculoskeletal Musculoskeletal: Denies joint pain Neurologic Neurologic: Reports other Details: Feels he has right-sided weakness and delayed speech and does not feel like herself Psychiatric Psychiatric: Reports other Details: Did not report any significant complaints Hematologic/Lymphatic Hematologic/Lymphatic: Denies easy bleeding Allergic/Immunologic Allergic/Immunologic: Reports other Details: denies rashes Vital Signs Vital Signs Vital Signs: 04/09/22 08:07 Temperature 96.8 F L Temperature Source Temporal Pulse Rate 93 Respiratory Rate 16 Blood Pressure 136/98 H Blood Pressure Mean 110 Pulse Ox 97 Oxygen Delivery Method Room Air Weight Weight: 90.537 kg Body Mass Index (BMI) 37.7 Physical Exam Const no apparent distress Constitutional Narrative: Oriented, does appear somewhat tired HEENT normocephalic and head/scalp atraumatic Eyes Eyes Narrative: EOM intact, both pupils dilated symmetrically Neck supple Resp normal respiratory effort and clear to auscultation bilaterally Cardio regular rate and regular rhythm GI soft to palpation, non-tender and non-distended Extremity Extremity Narrative: No edema appreciated Neuro moves all extremities Neuro Narrative: Extraocular movements intact, pupils equal though does demonstrate mydriasis, cranial nerves II through XII otherwise intact. Speaks somewhat slowly but is not slurred, no facial asymmetry, [id number] without significant dysmetria, follows hands, no clonus in ankles, reflexes brisk and symmetric Psych Psych Narrative: Cooperative Results Lab / Micro Data Result Diagrams: 04/09/22 08:36 04/09/22 08:36 Labs: Laboratory Results - last 24 hr 04/09/22 08:16: POC Glucose 161 H 04/09/22 08:36: WBC 7.1, RBC 4.73, Hgb 13.2, Hct 41.5, MCV 87.7, MCH 27.9, MCHC 31.8 L, RDW Std Deviation 41.9, RDW Coeff of Alexander 13.0, Plt Count 376, MPV 8.7, Immature Gran % (Auto) 0.400, Neut % (Auto) 64.8, Lymph % (Auto) 28.4, [place] % (Auto) 5.0, Eos % (Auto) 1.1, Baso % (Auto) 0.3, Absolute Neuts (auto) 4.6, Absolute Lymphs (auto) 2.00, Nucleated RBC % 0 04/09/22 08:36: Sodium 137, Potassium 4.2, Chloride 106, Carbon Dioxide 26.0, Anion Gap 5, BUN 15, Creatinine 0.98, Estim Creat Clear Calc 52.40, Est GFR (MDRD) Af Amer 77, Est GFR (MDRD) Non-Af 64, BUN/Creatinine Ratio 15.3, Glucose 168 H, Calcium 9.0, Troponin I High Sens < 3 L Rhythm Strip Rhythm Strip: Sinus Rhythm Rate: 85 Ectopy: None Radiology Impression Head/Neck CTA 04/09/22 08:28 IMPRESSION: Negative head/brain CT without intravenous contrast. Electronically Signed: Chase Moffett MD at 9:32 EST , Assessment & Plan Assessment/Plan (1) Altered mental status: PLAN: Plan #Altered mental status Metabolic versus structural versus medication versus functional Does have history of rheumatoid arthritis, will check inflammatory markers and rheumatoid markers, reports she has been on a taper of prednisone Is also on Ambien, appears to be on gabapentin. She was unsure of her current medication list so unclear if other medications may be interacting, also reports problems have been over the past weeks or more and it appears she was started on Ambien 2 months ago Calcium within normal limits Will get MRI with and without contrast UDS and alcohol level EEG CT scan unremarkable at this time Glucose within normal limits, sodium normal, no evidence of infection we will ge t TSH and B12 Liver panel Does appear she was on sumatriptan at one point, could be having complex m igraines if work-up otherwise negative Pending work-up we will consider consult for neurology Of note was recently started on terbinafine for onychomycosis, may interact with a home medication, unclear until home med list is updated #Episodes of loss of consciousness Medication versus orthostatic versus vasovagal versus seizure activity EEG Admit to telemetry Will obtain echo Hold Ambien UDS Will obtain orthostats #Rheumatoid arthritis Will obtain inflammatory markers Unclear what she supposed to be on at home, reports she is Benavides taking methotrexate or leucovorin Sounds to be on 5 of prednisone, will continue this dose, do not see indication to stress dose at this time Will await accurate home med list to decide on further medications #DVT ppx: SCDs Dior Rodgers MD Charges/Coding Visit Charges OBSV E&M: 19009 Initial observation care L2
--- NOTE | 2022-04-09 11:41 | MRI_ITS ---
STUDY: MRI BRAIN WITH AND WITHOUT CONTRAST REASON FOR EXAM: Female, 51 years old. Change in mental status TECHNIQUE: Standardized multiplanar fat and water weighted pulse sequences were obtained. IV 18ml Clariscan was administered for the contrast portion of the examination. COMPARISON: CT earlier today FINDINGS: Normal size of the ventricles and extra-axial spaces for the patient''s age. Normal white matter tracts of the supratentorial brain. There is no evidence for recent intracranial ischemia or other cause of cytotoxic edema on diffusion weighted imaging (DWI). Normal T2* images of the brain without demonstrated susceptibility artifact. There is no demonstrated hemosiderin stain. Normal bilateral basal ganglia. Normal thalami. There is no extra-axial fluid accumulation. Normal flow voids within the major intracranial circulation suggesting patency by spin echo criteria. Normal venous enhancement. There is no enhancing intra-axial or extra-axial abnormality. Normal sella turcica, pituitary gland, infundibular stalk, optic chiasm and hypothalamus. Normal tectal plate and pineal gland. Normal midbrain, dee dee and medulla. Normal cerebellum. Normal basal cisterns. Normal bilateral temporal bones. Normal bilateral internal auditory canals. No demonstrated orbital abnormality, within the constraints of a routine brain study. Normal visualized paranasal sinuses. Normal calvarium and skull base. Normal visualized soft tissue structures. Normal visualized upper cervical spine. MRI/Brain W/WO Contrast IMPRESSION: Normal unenhanced and enhanced MRI of the brain. Electronically Signed: Carroll Nichols MD at 13:46 EST ,
--- NOTE | 2022-04-09 11:41 | ECHOCS_ITS ---
Reason For Study: Syncope/Near Syncope Procedure This was a 2D Doppler, Color Flow transthoracic echocardiogram. The study was technically difficult. Contrast injection was performed. Exam performed portable in ED. Left Ventricle Normal size and thickness. The left ventricular ejection fraction is 50 %. Normal diastololic function. Right Ventricle Normal right ventricle. Atria The left atrium is mildly enlarged. Normal right atrium. Bubble contrast study is negative for PFO/ASD. Mitral Valve Moderate (2+) eccentric mitral valve insufficiency. Tricuspid Valve Trivial tricuspid valve insufficiency. Unable to estimate RV systolic pressure due to insufficient tricuspid regurgitant envelope. Pulmonic Valve The pulmonic valve is not well visualized. Great Vessels Normal sized aortic root. Pericardium/Pleural No pericardial effusion. Medication Diluted definity 2ml given slow IV push to enhance endocardial definition. MMode/2D Measurements & Calculations LVIDd: 4.3 cm IVSd: 0.85 cm Ao root diam: 3.1 cm LVIDs: 3.6 cm LVPWd: 0.86 cm LA dimension: 3.8 cm RVDd: 2.9 cm FS: 14.8 % LAV(MOD-bp): 38.8 ml LVAd ap4: 25.9 cm2 LVAd ap2: 28.1 cm2 LAV(MOD-bp) Indexed: 20.5 ml/m2 LVLd ap4: 7.0 cm LVLd ap2: 7.2 cm LAV(MOD-sp2): 28.9 ml EDV(MOD-sp4): 78.7 ml EDV(MOD-sp2): 90.7 ml LAV(MOD-sp4): 38.1 ml EDV(sp4-el): 82.0 ml EDV(sp2-el): 93.6 ml LVAs ap4: 15.5 cm2 LVAs ap2: 16.7 cm2 LVLs ap4: 5.5 cm LVLs ap2: 5.6 cm ESV(MOD-sp4): 35.4 ml ESV(MOD-sp2): 40.8 ml ESV(sp4-el): 37.1 ml ESV(sp2-el): 42.3 ml EF(MOD-sp4): 55.1 % EF(MOD-sp2): 55.0 % EF(sp4-el): 54.7 % SV(MOD-sp4): 43.3 ml SV(MOD-sp2): 49.9 ml SV(sp4-el): 44.9 ml LA A4 area: 15.9 cm2 RA A4 area: 11.2 cm2 Time Measurements MV dec time: 0.19 sec Doppler Measurements & Calculations MV E max charles: 87.6 cm/sec Lat Peak E' Charles: 9.6 cm/sec Med Peak E' Charles: 7.6 cm/sec MV A max charles: 87.6 cm/sec E/E' lat: 9.1 E/E' med: 11.5 MV E/A: 1.0 MV V2 max: 98.5 cm/sec MV P1/2t max charles: 99.0 cm/sec Ao V2 max: 89.5 cm/sec MV max P.9 mmHg MV P1/2t: 81.8 msec Ao max P.2 mmHg MV V2 mean: 59.4 cm/sec MV dec slope: 354.4 cm/sec2 Ao V2 mean: 60.5 cm/sec MV mean P.6 mmHg Ao mean P.7 mmHg MV V2 VTI: 28.9 cm MVA(P1/2t): 2.7 cm2 Ao V2 VTI: 22.7 cm AV (velocity ratio): 0.89 LV V1 max: 73.4 cm/sec MR max charles: 653.7 cm/sec LV V1 max P.2 mmHg MR max P.9 mmHg LV V1 mean P.2 mmHg MR mean charles: 491.6 cm/sec LV V1 mean: 50.7 cm/sec MR mean P.1 mmHg LV V1 VTI: 20.3 cm MR VTI: 277.7 cm ECHO/Echo Complete W/ Contrast Interpretation Summary The left ventricular ejection fraction is 50 %. The left atrium is mildly enlarged. Bubble contrast study is negative for PFO/ASD. Moderate (2+) eccentric mitral valve insufficiency. The study was technically difficult. Ordering Physician: Dior Rodgers Referring Physician: Ryan Diallo Performed By: Steffen Oliva RCS
[2022-04-09 12:02] LABS: Alcohol, Blood (Medical)-Serum < 3.0 mg/dL
[2022-04-09 12:15] LABS: Vitamin B12 535 pg/mL (211-911)
[2022-04-09 12:34] LABS: AST(SGOT) 26 U/L (15-37); Alanine Aminotransfer ALT/SGPT 32 U/L (13-56); Albumin, Serum 3.7 g/dL (3.2-5.0); Alkaline Phosphatase 80 U/L (45-117); Bilirubin, Direct 0.08 mg/dL (0.00-0.30); CRP < 2.90 mg/L (0.0-3.0); Globulin 3.8 g/dL (2.2-4.2); Protein, Total 7.5 g/dL (6.4-8.2); Thyroid Stim Hormone (TSH) 0.43 uIU/mL (0.358-3.74)
[2022-04-09 13:07] LABS: Erythrocyte Sedimentation Rate 33 mm/hr (0-30)
[2022-04-09 14:17] LABS: Rheumatoid Factor < 10.0 IU/mL (<15)
[2022-04-09 19:52] LABS: Amphetamine Urine VISTA NEGATIVE (<1000 ng/mL); Barbiturate Urine VISTA NEGATIVE (< 200 ng/mL); Benzodiazepine Urine VISTA NEGATIVE (< 200 ng/mL); Cocaine Urine VISTA NEGATIVE (< 300 ng/mL); Ecstacy Urine VISTA NEGATIVE (< 500 ng/mL); Methadone Urine VISTA NEGATIVE (< 300 ng/mL); PCP Urine VISTA NEGATIVE (< 25 ng/mL); THC Urine VISTA POSITIVE (< 50 ng/mL); Vista UDS pH Range 7
[2022-04-09] MEDS: Atorvastatin Calcium 20 MG Tablet PO (22:08)
[2022-04-09] MEDS: Insulin Glargine-YFGN 100 UNIT/ML Pen 10 UNIT SC (22:08)
[2022-04-09 22:27] LABS: Bacteria 0 SEEN /hpf (None Seen); Mucous, Urine 0 SEEN /hpf (<or=2+); Red Blood Cells-Urine 0 SEEN /hpf (0-5)
[2022-04-09 22:31] LABS: Bedside Glucose 151 mg/dL (74-106)
[2022-04-09 22:32] LABS: Glucose, Dipstick Normal (Normal); Ketone-Dipstick Negative (Negative); Leukocyte Esterase-Dipstick 25 /ul (Negative); Nitrite-Dipstick Negative (Negative); Occult Blood-Urine Negative /ul (Negative); Protein-Dipstick Negative (Negative); Urine Bilirubin Dipstick Negative (Negative); Urine Urobilinogen Normal (Normal); Urine pH 6.5 (5.0 - 8.0)
[2022-04-09 22:33] LABS: Color, Urine Straw (Yellow); Urine Clarity Clear (Clear)
[2022-04-09 22:48] LABS: Squamous Epithelial Cells - UA 0-5 SEEN /hpf (5-10); White Blood Cells 0-5 SEEN /hpf (0-5)
[2022-04-10] VITALS (8 sets, daily range): BP systolic 95–148; BP diastolic 70–88; PULSE 63–92; RESP 16–20; TEMP 36.1–36.7; O2SAT 95–100
[2022-04-10] MEDS: 0.9% Saline Lock 10 ML Syringe IV (05:49)
[2022-04-10] MEDS: Ondansetron 4 MG/2 ML Vial IV (05:50)
[2022-04-10 06:37] LABS: Absolute Lymphocyte Count 4.27 X10^3/uL (0.83-4.51); Absolute Neutrophil Count 4.2 X10^3/uL (2.0-7.7); Basophil# 0.03 X10^3/uL; Basophil% 0.3 % (0-1); Eosinophils% 6.1 % (0-5); Hemoglobin 12.5 g/dL (12.0-15.0); Lymphocyte # 4.27 X10^3/ul (0.83-4.51); Lymphocyte % 43.6 % (19-41); Mean Corp Hgb Conc 32.9 g/dL (32-36); Mean Corpuscular Hgb 28.5 pg (27.0-32.0); Mean Corpuscular Volume 86.6 fL (81-99); Mean Platelet Vol. 8.7 fl (6.2-12.0); Monocyte# 0.62 X10^3/uL; Monocyte% 6.3 % (0-10); NRBC Flagged by Analyzer 0 % (0-5); Neutrophil # 4.24 X10^3/uL (2.7-7.7); Neutrophil % 43.3 % (47-70); Platelet Count 325 K/mm3 (150-450); RBC Distribution Width CV 13.2 % (11.6-14.6); RBC Distribution Width SD 41.7 fl (35.1-43.9); Red Blood Count 4.39 M/mm3 (4.2-5.4); White Blood Count 9.8 K/mm3 (4.4-11.0)
[2022-04-10 06:49] LABS: Erythrocyte Sedimentation Rate 27 mm/hr (0-30)
[2022-04-10 07:11] LABS: ALB/GLOB Ratio 0.9 RATIO (0.9-2.4); AST(SGOT) 20 U/L (15-37); Alanine Aminotransfer ALT/SGPT 32 U/L (13-56); Albumin, Serum 3.1 g/dL (3.2-5.0); Alkaline Phosphatase 73 U/L (45-117); Anion Gap 6 (5-15); BUN 18 mg/dL (7-18); BUN/Creat Ratio 20.3 RATIO (10-20); Calcium,Total 9.1 mg/dL (8.5-10.1); Chloride 105 mmol/L (98-107); Creatinine, Serum 0.89 mg/dL (0.55-1.02); EST Glomerular Filtration Rate 72 mL/min (>60); Est Glom Filt Rate - Afr Amer 87 mL/min (>60); Globulin 3.5 g/dL (2.2-4.2); Glucose 149 mg/dL (74-106); Potassium 3.8 mmol/L (3.5-5.1); Protein, Total 6.6 g/dL (6.4-8.2); Sodium Level 139 mmol/L (136-145)
--- NOTE | 2022-04-10 10:58 | TELEMED_ITS ---
[facility] has confirmed receipt of a request for visit. This document confirms receipt of the order initiating the consult. To find the results of the consultation, please view the patient's reports for the scanned Telemed Consult.
[2022-04-10] MEDS: Sertraline 100 MG Tablet PO (11:36)
[2022-04-10] MEDS: predniSONE 5 MG Tablet PO (11:36)
[2022-04-10 12:45] LABS: ANTINUCLEAR ANTIBODIES DIRECT Negative (Negative)
[2022-04-10 12:46] LABS: CCP IgG Antibodies 34 units (0-19)
--- NOTE | 2022-04-10 15:36 | CHAPLAIN ---
Type of Pastoral Visit _x__ Initial Visit ___ Follow-up Visit ___ On-call Visit ___ General Patient Visit ___ Spiritual Assessment ___ Family Conference ___ Bereavement ___ Rapid Response ___ Code Blue ___ Other (describe below) Pastoral Care Referral From _x__ Patient ___ Family ___ Nurse ___ Physician ___ Secretary Book Keeper ___ Gas Tender ___ Other (describe below) Sacrament/Intervention _x__ Active listening ___ Anointing ___ Taoist ___ Bereavement ___ Communion ___ Odette exploration ___ ___ Life review ___ Prayer ___ Reconciliation ___ Sacrament of Sick ___ Supportive presence ___ Wedding ___ Other (describe below) Pastoral Comments patient welcoming but states that she is doing fine; pt states only concern is that she is able to keep her job which was a new one for her; 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
--- NOTE | 2022-04-10 17:27 | NURSING ---
PT VOICING DESIRE TO BE D/C'D AT THIS TIME. DR VARMA STATES PT CANNOT BE D/C'D PRIOR TO RECEIVING EEG RESULTS. PT VOICES UNDERSTANDING ABOUT POTENTIAL SEIZURE ACTIVITY AND POTENTIAL FOR LARGER SEIZURE. STILL STATING SHE WILL BE GOING HOME TONIGHT. IV DC'D. TELE DC'D.
--- NOTE | 2022-04-10 18:35 | PCM.DC.SUM ---
Providers Date of Admission: 04/09/22 Date of Discharge: 04/10/22 Primary Care Physician: Dr. Leandro Diallo MD Reason For Visit: EPISODIC R HEMIPARESIS, SPEECH SX, DIPLOPIA Diagnosis Discharge Diagnosis (1) Altered mental status: Status: Acute Code(s): R41.82 - Altered mental status, unspecified Plan #Altered mental status #Episodes of loss of consciousness #Rheumatoid arthritis Medications at Discharge Home Medications metoprolol succinate 50 mg tablet,extended release 24 hr (Toprol XL) 100 mg PO DAILY 08/26/17 sertraline 100 mg tablet 100 mg PO DAILY 08/26/17 zolpidem 12.5 mg tablet,extended release,multiphase (Ambien CR) 12.5 mg PO QHS Check with primary doctor 08/26/17 dulaglutide 0.75 mg/0.5 mL subcutaneous pen injector (Trulicity) 1.5 mg subcut WE 04/09/22 gabapentin 800 mg tablet 800 mg PO TID 04/09/22 insulin detemir U-100 100 unit/mL (3 mL) subcutaneous pen (Levemir FlexTouch U-100 Insulin) 20 unit subcut QHS 04/09/22 rizatriptan 10 mg tablet 10 mg PO PRN PRN Migraine Headache 04/09/22 rosuvastatin 10 mg tablet 10 mg PO QHS 04/09/22 tizanidine 4 mg tablet 4 mg PO TID 04/09/22 aspirin 81 mg tablet 81 mg PO DAILY Check with primary doctor 04/10/22 lorazepam 0.5 mg tablet (Ativan) 0.5 mg PO DAILY PRN Anxiety 04/10/22 prednisone 10 mg tablet 10 mg PO DAILY Check with primary doctor 04/10/22 terbinafine HCl 250 mg tablet 250 mg PO DAILY Check with primary doctor 04/10/22 Hospital Course Procedures - (EEG, mri) Summary of Care Provided Minutes Spent on Discharge: 35 Hospital Course: PATIENT LEFT AMA. Per HPI: MJ OLEARY, is a 51 F with a history of rheumatoid arthritis who presents to [facility] 04/09 after she was sent from work for bizarre behavior.? Somewhat poor historian but she reports that she has intermittently been having problems with passing out as well as right-sided weakness and generally just feeling unwell.? She reports the falls/passing out episodes have been over the past few weeks and occur at random, does not know if she is had any seizure-like activity but wakes up and is not confused, reports things usually go black before she passes out and is usually standing up though did have 1 episode where she was sitting at her table and slumped over.? Had difficulty describing these episodes further.? Also notes intermittent right-sided weaker than left, said she had some double vision earlier today for about 10 minutes, feels she has slightly delayed speech.? Denies rashes is in weight, night sweats, no headache and aside from brief double vision earlier today no changes in vision, no problems swallowing.? Did have a new medication change as terbinafine was added for onychomycosis.? Was unable to recall other medications except that she takes one fourth of a prednisone.? Denies drug use but does take Ambien nightly.? Denies smoking, denies frequent alcohol use. Hosp course: Significantly improved this a.m. with reports still of some weakness in her legs and occasional dizziness, was orthostatic positive and got some fluids. Lab work-up and imaging overall unremarkable, upon further discussion this has been going on roughly 2 months and looking at her external fill history she has been feeling long-acting Ambien for that duration is also on gabapentin as well as tizanidine and UDS positive for marijuana. Discussed extensively that this is likely due to to medication interaction and strongly advised that she stop taking the Ambien and discuss this with her physician. Based on the severity of her symptoms when she presented was awaiting EEG prior to discharge. Patient did not want to wait and left AMA. Physical Exam Const alert and no apparent distress Constitutional Narrative: Oriented HEENT normocephalic and head/scalp atraumatic Eyes Eyes Narrative: EOM grossly intact, anicteric Neck supple Resp normal respiratory effort and clear to auscultation bilaterally Cardio regular rate and regular rhythm GI soft to palpation, non-tender and non-distended Extremity Extremity Narrative: No edema appreciated Neuro moves all extremities Neuro Narrative: No overt focal deficits appreciated Psych Psych Narrative: Cooperative Weight / BMI Weight Weight: 93.1 kg Body Mass Index (BMI) 38.7 ABG / Lab / Microbiology Data Result Diagrams: 04/10/22 06:25 04/10/22 06:25 Laboratory: Laboratory Results - last 24 hr 04/09/22 08:36: SHAJI Screen Negative, YANIRA-1 Antibody Not Reportable, SS-A/Ro IgG Antibody Not Reportable, SS-B/La IgG Antibody Not Reportable, Sm ([place]) Antibody Not Reportable, DATA ENTRY MANAGER Antibody Not Reportable, Scl-70 Scleroderma Ab Not Reportable, Double Strand DNA Ab Not Reportable, Centromere B Antibody Not Reportable 04/09/22 08:36: Cycl Citrul Peptide IgG 34 H 04/09/22 19:00: Urine Opiates Screen NEGATIVE, Urine Methadone Screen NEGATIVE, Ur Barbiturates Screen NEGATIVE, Ur Phencyclidine Scrn NEGATIVE, Ur Amphetamines Screen NEGATIVE, MDMA (Ecstasy) Screen NEGATIVE, U Benzodiazepines Scrn NEGATIVE, Urine Cocaine Screen NEGATIVE, U Cannabinoids Screen POSITIVE H, Ur Drug Screen Comment 04/09/22 19:00: Urine Color Straw, Urine Clarity Clear, Urine pH 6.5, Ur Specific [place] 1.010, Urine Protein Negative, Urine Glucose (UA) Normal, Urine Ketones Negative, Urine Occult Blood Negative, Urine Nitrite Negative, Urine Bilirubin Negative, Urine Urobilinogen Normal, Ur Leukocyte Esterase 25 H, Urine RBC 0 SEEN, Urine WBC 0-5 SEEN, Ur Squamous Epith Cells 0-5 SEEN, Urine Bacteria 0 SEEN, Urine Mucus 0 SEEN 04/09/22 22:07: POC Glucose 151 H 04/10/22 06:25: WBC 9.8, RBC 4.39, Hgb 12.5, Hct 38.0, MCV 86.6, MCH 28.5, MCHC 32.9, RDW Std Deviation 41.7, RDW Coeff of Alexander 13.2, Plt Count 325, MPV 8.7, Immature Gran % (Auto) 0.400, Neut % (Auto) 43.3 L, Lymph % (Auto) 43.6 H, [place] % (Auto) 6.3, Eos % (Auto) 6.1 H, Baso % (Auto) 0.3, Absolute Neuts (auto) 4.2, Absolute Lymphs (auto) 4.27, Nucleated RBC % 0, ESR 27 04/10/22 06:25: Sodium 139, Potassium 3.8, Chloride 105, Carbon Dioxide 28.0, Anion Gap 6, BUN 18, Creatinine 0.89, Estim Creat Clear Calc 57.70, Est GFR (MDRD) Af Amer 87, Est GFR (MDRD) Non-Af 72, BUN/Creatinine Ratio 20.3 H, Glucose 149 H, Calcium 9.1, Total Bilirubin 0.20, AST 20, ALT 32, Alkaline Phosphatase 73, Total Protein 6.6, Albumin 3.1 L, Globulin 3.5, Albumin/Globulin Ratio 0.9 Meaningful Use Info Meaningful Use Diagnoses (Choose all that apply): None applicable Discharge Plan Admission Admit Date/Time: 04/09/22 10:55 Attending Provider: Dior Rodgers Primary Care Provider: Leandro Diallo Discharge Orders/Prescriptions Prescriptions: No Action metoprolol succinate [Toprol XL] 50 MG tablet extended release 24 hr 100 mg PO DAILY Label Comments: sertraline 100 MG tablet 100 mg PO DAILY Label Comments: zolpidem [Ambien CR] 12.5 MG tablet,ext release multiphase 12.5 mg PO QHS tizanidine 4 mg tablet 4 mg PO TID rizatriptan 10 mg tablet 10 mg PO PRN PRN (Reason: Migraine Headache) Label Comments: TAKE 1 TABLET BY MOUTH AT THE TIME OF HEADACHE. CAN REPEAT IN 2 HOURS IF NEEDED ONCE gabapentin 800 mg tablet 800 mg PO TID Label Comments: TAKE 1 TABLET BY MOUTH THREE TIMES DAILY rosuvastatin 10 mg tablet 10 mg PO QHS Label Comments: TAKE 1 TABLET BY MOUTH ONCE DAILY Trulicity 0.75 mg/0.5 mL pen injector 1.5 mg SUBCUT WE Label Comments: INJECT THE CONTENTS OF 1 PEN SUBCUTANEOUSLY ONCE A WEEK Levemir FlexTouch U-100 Insuln 100 unit/mL (3 mL) insulin pen 20 unit SUBCUT QHS prednisone 10 mg Tablet 10 mg PO DAILY terbinafine HCl 250 mg Tablet 250 mg PO DAILY lorazepam [Ativan] 0.5 mg Tablet 0.5 mg PO DAILY PRN (Reason: Anxiety) aspirin 81 mg Tablet 81 mg PO DAILY Referrals / Follow Up: Leandro Diallo MD [Primary Care Provider] - Disposition Disposition (needs filled in before D/C Order can be placed): Against Medical Advice Charges/Coding Visit Charges OBSV E&M: 48861 Observation care discharge
== END 2022-04-10 17:36 | disposition left against medical advice (07) ==
LOC: ED 10:31 → PCU 13:41 → MS2 04-10 08:46
PROVIDERS: Admitting Provider Internal Medicine; Emergency Provider Emergency Medicine; PCP Family Medicine; Visit Provider Internal Medicine
DX: R41.82 Altered mental status, unspecified (principal); G81.91 Hemiplegia, unspecified affecting right dominant side; M06.9 Rheumatoid arthritis, unspecified; E11.9 Type 2 diabetes mellitus without complications; Z79.4 Long term (current) use of insulin; H53.2 Diplopia; R47.9 Unspecified speech disturbances; B35.1 Tinea unguium; Z79.52 Long term (current) use of systemic steroids; R42 Dizziness and giddiness; Z79.899 Other long term (current) drug therapy; Z79.82 Long term (current) use of aspirin
CPT/HCPCS: 86225; 86235 ×5; 36415; 70496; 70498; 70553; 80048; 80053; 80076; 80307; 81001; 82077; 82607; 82962; 84443; 84484; 85025; 85652; 86038; 86140; 86200; 86431; 93005; 93306; 95819; 96361; 96374; 97802; 99218; 99285; A9575; J7040; Q9957; Q9967; A4216; C8929; G0378; J2405

== ENCOUNTER → 2022-05-15 | Outpatient (CLI) | payer MEDICAID, SELFPAY ==
--- NOTE | 2022-05-15 17:27 | RAD_ITS ---
INDICATION: PAIN EXAMINATION/TECHNIQUE: X-RAY - LEFT XR Knee Complete 4 Views COMPARISON: None. FINDINGS: 4 views of the left knee were obtained. No acute fracture is identified. Minimal degenerative change. No gross joint effusion. RAD/Knee 4 or More Views IMPRESSION: No significant abnormality. Electronically Signed: Kike Grewal MD at 7:37 EST ,
--- NOTE | 2022-05-15 17:27 | RAD_ITS ---
INDICATION: PAIN EXAMINATION/TECHNIQUE: X-RAY - RIGHT XR Knee Complete 4 Views COMPARISON: None. FINDINGS: 4 views of the right knee were obtained. No acute fracture is identified. Minimal degenerative change. No gross joint effusion. RAD/Knee 4 or More Views IMPRESSION: No significant abnormality. Electronically Signed: Kike Grewal MD at 7:32 EST ,
== END | disposition home or self-care (01) ==
PROVIDERS: PCP Family Medicine; Referring Provider Family Medicine; Visit Provider Family Medicine
DX: M25.561 Pain in right knee (principal); M25.562 Pain in left knee
CPT/HCPCS: 73564

== ENCOUNTER 2022-06-27 12:30 | Outpatient (RCR) | payer MEDICAID, SELFPAY ==
--- NOTE | 2022-06-19 14:29 | HP.PTEVAL_ITS ---
Patient's Visit Information MJ OLEARY is a 51 year old F referred to Physical Therapy by Dr. Leandro Diallo MD with a diagnosis of B knee pain after falls, MCL strain R side. Date of Evaluation: 06/18/22 Physical Therapist: Dakota Zimmer DPT - Visit Plan Frequency: 2x /Week Duration: 6 Weeks Plan: Start with quad/HS strengthening, ROM, HS stretching. Progress gait training. May use modalities to calm symptoms as needed. Currently L LE is more painful than R side. - Subjective Pt. is here today for her initial with diagnosis of R knee pain after having a fall, and MCL strain. Pt. reports having a fall and doing the splits. Pt. reports having more falls as well, but no injuries with her other falls. She reports passing out, but has not figured out why she is passing out. She has not passed on in a few weeks. History of RA as well. Increased pain with doing more or too little. Pt. is not working currently. Pt. has increased pain with walking, standing, stairs. Pt. has not been doing any exercises due to pain. She did wear a brace initially, but is not wearing one currently. She does have a history of passing out for unknown reason which is what has been causing her falls. Pt. is hopeful to reduce symptoms in order to get back to all recreational and work activities without limitations. She does report now her L knee is worse than her R knee. Both at medial aspects of her knee. - Pain Lknee Pain Intensity (Out of 10): 7 Pain Intensity Range: 4, 8 R knee Pain Intensity (Out of 10): 6 Pain Intensity Range: 4, 9 - Objective POSTURE: Pt. has increased wt, shift to R side. Pt. reports L is more sore than R currently, but both are painful. PALPATION: Pt. is painful throughout B knees, more at medial joint line. L worse than R. NEURO: Pt. has normal sensation in BLEs. Pt. has normal DTR of BLEs. Pt. is able to rise on heels and toes without myotomal weakness. ROM: R knee 0-5-119deg, L knee 0-4-118deg. Pt. has pain with increased flexion and extension. Extension worse on the L side. Tight B HS as well. MMT: RLE: knee: ext 14# increase NW, flexion 12# increase NW: hip: flexion 5#, abd 8#. LLE: knee ext 12#, flexion 8#; hip: flexion 5#, abd 6#. GAIT: Pt. ambulates without AD, but has decreased step length. She has some increased valgus bilaterally. STAIRS: Pt. is able to complete with step to pattern, loading RLE only. Pt. has slight antalgic pattern during L stance phase. - Special Tests R Knee Anterior Drawer - ACL: Negative R Knee Posterior Drawer - PCL: Negative R Knee Valgus - MCL: Positive R Knee Varus - LCL: Negative Comments: VALGUS test + for pain, not laxity. L Knee Dena - ACL: Negative L Knee Posterior Drawer - PCL: Negative L Knee Valgus - MCL: Positive L Knee Varus - LCL: Negative Comments: MCL testing + for pain, not laxity - Balance/Special Test Scores Lower Extremity Functional Score: 50 - Goals Goal 1:: LTG: Pt. to be I with HEP. Goal Time Frame: 4-6 Weeks Goal 2:: LTG: Pt. to have full ROM of B knees without increase in symptoms. Goal Time Frame: 4-6 Weeks Goal 3:: STG: Pt. to sleep throughout the night without increase in symptoms. Goal Time Frame: 2 Weeks Goal 4:: LTG: Pt. to be able to walk unlimited distances without increase in B knee pain Goal Time Frame: 4-6 Weeks Goal 5:: LTG: Pt. to have increased strength of B LE strength by 1/2 grade thr oughout. Goal Time Frame: 4-6 Weeks - Rehabilitation Potential Physical Therapy Diagnosis: Pt. has signs and symptoms consistent with B knee pain and R MCL strain. Pt. fell when she passed out and awoke in the split position. Since then she has had increased pain in B knees R was initially, but now her L medial knee is more painful. Pt. has marked loss of ROM, weakness and difficulty with functional mobility. Pt. would benefit from PT to address the above limitations progressing back to all work and recreational activities without issues. Rehabilitation Potential: Good - Anticipated Interventions Patient/Client Instruction: Educate patient on: Condition, Plan of Care, Risk Factors, Benefits of Fitness Program For the Purpose of:: To reduce risk of recurrence, To improve safety, To improve health and function, To foster healthy habits, To improve decision making, To prevent re-injury, To improve ability to perform tasks related to life management Therapeutic Exercise to Include: Strength training, Power training, Body mechanics, Postural training, Flexibilty training, Gait and locomotor training, Passive ROM, Active ROM For the Purpose of:: To decrease pain, To increase ROM, To improve nutrient delivery to tissue, To increase oxygenation perfusion, To improve muscle performance and motor function, To improve ability to perform ADL's, To improve gait and locomotor functions, To improve health of tissue, To decrease soft tissue restriction, To increase flexibility/ROM TENS: Yes Cryotherapy (ice pack, ice massage): Yes Thermo therapy (hot pack): Yes Ultrasound (thermal/non thermal): Yes For the Purpose of:: To decrease pain, To increase ROM, To improve nutrient delivery to tissue, To increase oxygenation perfusion, To improve muscle performance and motor function Thank you for the opportunity to evaluate your patient. For Medicare and Medicare HMO plans, please review the plan of care and approve it. It will need to be FAXED BACK to us at [phone] for Medicare purposes. For Medicare only, by signing this I certify the plan of care. Please let me know if there are questions or concerns regarding this plan of care. Physician Signature: Date:
== END 2022-06-27 19:00 | disposition home or self-care (01) ==
LOC: PT 12:30
PROVIDERS: PCP Family Medicine; Referring Provider Family Medicine; Visit Provider Family Medicine
DX: S83.411D Sprain of medial collateral ligament of right knee, subsequent encounter (principal); W19.XXXD Unspecified fall, subsequent encounter; M25.562 Pain in left knee
CPT/HCPCS: 97110; 97161

== ENCOUNTER → 2022-08-21 | Outpatient (CLI) | payer MEDICAID, SELFPAY ==
--- NOTE | 2022-08-21 06:51 | MRI_ITS ---
STUDY: MRI RIGHT KNEE REASON FOR EXAM: Female, 52 years old. Medial pain. Evaluate for ligamentous damage. TECHNIQUE: Standardized fat and water weighted pulse sequences were obtained in all 3 orthogonal planes. COMPARISON: None. FINDINGS: Normal medial meniscus. Normal hyaline cartilage of the medial femorotibial compartment. Normal medial femoral condyle and tibial plateau. Partial tear of the proximal medial collateral ligament with an MCL sprain (coronal series 6 images 15-22). Proximal tear of the deep medial collateral ligament (coronal series 6 images 20-22). Normal distal semimembranosus, gracilis and semitendinosus tendons. Normal lateral meniscus. Normal hyaline cartilage of the lateral femorotibial compartment. Normal lateral femoral condyle and tibial plateau. Normal proximal tibiofibular articulation. Normal lateral collateral (fibular) ligament. Normal popliteus tendon. Normal biceps femoris tendon. Normal anterior cruciate ligament (ACL). Normal posterior cruciate ligament (PCL). Normal congruent patellofemoral articulation. Surface irregularity of the articular cartilage of the medial patellar facet (axial series 2 image 9). Normal medial and lateral patellar retinaculum. Normal quadriceps tendon. Normal patellar tendon. Normal Hoffa''s fat pad. Small joint effusion (axial series 2 image 8). Minimal prepatellar subcutaneous soft tissue edema (sagittal series 4 image 14). The otherwise visualized osseous structures are unremarkable. MRI/Lower Ext Joint Only (Routine) IMPRESSION: Partial tear of the proximal superficial medial collateral ligament with MCL sprain. Proximal partial tear of the deep medial collateral ligament. Surface irregularity of the articular cartilage of the medial patellar facet. Minimal prepatellar subcutaneous soft tissue edema. Small joint effusion. Electronically Signed: Pablo Avery, at 14:59 EDT ,
[2022-08-21 08:17] LABS: Hematocrit 41.5 % (37-47); Mean Corp Hgb Conc 31.3 g/dL (32-36); Mean Corpuscular Volume 89.4 fL (81-99); Platelet Count 365 K/mm3 (150-450); RBC Distribution Width CV 13.3 % (11.6-14.6); RBC Distribution Width SD 43.5 fl (35.1-43.9); Red Blood Count 4.64 M/mm3 (4.2-5.4); White Blood Count 8.1 K/mm3 (4.4-11.0)
[2022-08-21 08:54] LABS: ALB/GLOB Ratio 1.1 RATIO (0.9-2.4); AST(SGOT) 34 U/L (15-37); Alanine Aminotransfer ALT/SGPT 38 U/L (13-56); Albumin, Serum 3.7 g/dL (3.2-5.0); Alkaline Phosphatase 77 U/L (45-117); Anion Gap 11 (5-15); BUN 14 mg/dL (7-18); BUN/Creat Ratio 12.1 RATIO (10-20); Calcium,Total 9.4 mg/dL (8.5-10.1); Chloride 104 mmol/L (98-107); Cholesterol 240 mg/dL (200); Creatinine, Serum 1.16 mg/dL (0.55-1.02); EST Glomerular Filtration Rate 53 mL/min (>60); Est Glom Filt Rate - Afr Amer 64 mL/min (>60); Globulin 3.5 g/dL (2.2-4.2); Glucose 140 mg/dL (74-106); High Density Lipoprotein 47 mg/dL; Potassium 4.5 mmol/L (3.5-5.1); Protein, Total 7.2 g/dL (6.4-8.2); Sodium Level 141 mmol/L (136-145); Triglycerides 605 mg/dL
== END | disposition home or self-care (01) ==
LOC: MRI 06:49
PROVIDERS: PCP Family Medicine; Referring Provider Family Medicine; Visit Provider Family Medicine
DX: S83.411A Sprain of medial collateral ligament of right knee, initial encounter (principal); X58.XXXA Exposure to other specified factors, initial encounter; M25.461 Effusion, right knee
CPT/HCPCS: 36415; 73721; 80053; 80061; 84443; 85027

== ENCOUNTER → 2022-12-19 | Outpatient (CLI) | payer MEDICAID, SELFPAY ==
[2022-12-19 08:54] LABS: Hematocrit 35.4 % (37-47); Hemoglobin 11.2 g/dL (12.0-15.0); Mean Corp Hgb Conc 31.6 g/dL (32-36); Mean Corpuscular Hgb 28.7 pg (27.0-32.0); Mean Corpuscular Volume 90.8 fL (81-99); Mean Platelet Vol. 8.8 fl (6.2-12.0); Platelet Count 271 K/mm3 (150-450); RBC Distribution Width CV 12.7 % (11.6-14.6); RBC Distribution Width SD 41.6 fl (35.1-43.9); White Blood Count 5.7 K/mm3 (4.4-11.0)
[2022-12-19 09:10] LABS: ALB/GLOB Ratio 1.2 RATIO (0.9-2.4); AST(SGOT) 27 U/L (15-37); Alanine Aminotransfer ALT/SGPT 30 U/L (13-56); Albumin, Serum 3.5 g/dL (3.2-5.0); Alkaline Phosphatase 60 U/L (45-117); Anion Gap 4 (5-15); BUN 15 mg/dL (7-18); BUN/Creat Ratio 13.9 RATIO (10-20); Chloride 108 mmol/L (98-107); Creatinine, Serum 1.08 mg/dL (0.55-1.02); EST Glomerular Filtration Rate 57 mL/min (>60); Est Glom Filt Rate - Afr Amer 69 mL/min (>60); Glucose 142 mg/dL (74-106); Potassium 4.2 mmol/L (3.5-5.1); Protein, Total 6.5 g/dL (6.4-8.2); Sodium Level 139 mmol/L (136-145)
--- NOTE | 2022-12-20 09:14 | PCM.TILTTABL ---
Staff Staff: Sophia Rushing and Madeleine Tinoco Summary Pre Test Resting HR: 70 Pre Test Resting BP: 126/83 Minimum Test HR: 55 Maximum Test HR: 97 Minimum Test BP: 67/51 Maximum Test BP: 134/88 Physician Tilt Table Report Patient's Physicians Primary Care Physician: Leandro Diallo [employer] Operator: Tuan Ingram Indications/Diagnosis: Presyncope Procedure Comments: Patient was brought to the noninvasive lab in the postabsorptive nonsedated state. Initial heart rate was noted to be 70 bpm with a blood pressure 120/83 mmHg. The patient was then put in the 70 degree head upright tilt position. Patient's heart rate went to 88 bpm with a blood pressure dropping to 77/61 mmHg with mild dizziness noted. Blood pressure stayed in the 70s to 80s systolic range with heart rates noted in the 90s. Patient was not administered any sublingual nitroglycerin. After the appropriate period of time the patient was placed back in the recumbent position. Intravenous fluids were started due to the patient having symptoms of dizziness heart racing and a wobbly sensation. Blood pressure improved to 130/82 with a heart rate of 55 bpm. Summary: The above appears to be more consistent with orthostatic hypotensive changes.
[2022-12-20 09:20] VITALS: BP 126/83; BP 134/88; BP 67/51
[2022-12-23 15:41] LABS: Cholesterol 140 mg/dL (200); High Density Lipoprotein 48 mg/dL; Triglycerides 223 mg/dL; Very Low Density Lipoprotein 45 mg/dL (5-40)
== END | disposition home or self-care (01) ==
LOC: CVS 08:41
PROVIDERS: PCP Family Medicine; Referring Provider Internal Medicine Cardiovascular Disease; Visit Provider Internal Medicine Cardiovascular Disease
DX: R55 Syncope and collapse (principal); E11.9 Type 2 diabetes mellitus without complications
CPT/HCPCS: 36415; 80053; 80061; 85027; 93660; J7040; A4216

== ENCOUNTER → 2023-02-24 | Outpatient (CLI) | payer MEDICAID, SELFPAY ==
[2023-02-24 14:33] LABS: Mucous, Urine 0 SEEN /hpf (<or=2+); Red Blood Cells-Urine 0 SEEN /hpf (0-5)
[2023-02-24 17:42] LABS: Absolute Lymphocyte Count 2.59 X10^3/uL (0.83-4.51); Absolute Neutrophil Count 1.7 X10^3/uL (2.0-7.7); Basophil# 0.02 X10^3/uL; Basophil% 0.4 % (0-1); Eosinophils% 2.1 % (0-5); Hematocrit 38.5 % (37-47); Hemoglobin 12.1 g/dL (12.0-15.0); Lymphocyte # 2.59 X10^3/ul (0.83-4.51); Lymphocyte % 54.2 % (19-41); Mean Corp Hgb Conc 31.4 g/dL (32-36); Mean Corpuscular Hgb 28.1 pg (27.0-32.0); Mean Corpuscular Volume 89.5 fL (81-99); Mean Platelet Vol. 9.2 fl (6.2-12.0); Monocyte# 0.32 X10^3/uL; Monocyte% 6.7 % (0-10); NRBC Flagged by Analyzer 0 % (0-5); Neutrophil # 1.74 X10^3/uL (2.7-7.7); Neutrophil % 36.4 % (47-70); Platelet Count 240 K/mm3 (150-450); RBC Distribution Width CV 13.2 % (11.6-14.6); RBC Distribution Width SD 43.3 fl (35.1-43.9); White Blood Count 4.8 K/mm3 (4.4-11.0)
[2023-02-24 17:58] LABS: Erythrocyte Sedimentation Rate 4 mm/hr (0-30)
[2023-02-24 18:26] LABS: Vitamin B12 401 pg/mL (211-911); Vitamin D,25 Hydroxy 48.1 ng/mL
[2023-02-24 18:30] LABS: Color, Urine Yellow (Yellow); Glucose, Dipstick Normal (Normal); Ketone-Dipstick 5 mg/dl (Negative); Leukocyte Esterase-Dipstick 25 /ul (Negative); Nitrite-Dipstick Negative (Negative); Occult Blood-Urine Negative /ul (Negative); Protein-Dipstick 30 mg/dl (Negative); Specific Gravity, Urine 1.025 (1.002-1.030); Urine Clarity Sl. Cloudy (Clear); Urine Urobilinogen 1 mg/dl (Normal)
[2023-02-24 18:33] LABS: ALB/GLOB Ratio 1.1 RATIO (0.9-2.4); AST(SGOT) 28 U/L (15-37); Alanine Aminotransfer ALT/SGPT 30 U/L (13-56); Albumin, Serum 3.6 g/dL (3.2-5.0); Alkaline Phosphatase 64 U/L (45-117); Anion Gap 5 (5-15); BUN 17 mg/dL (7-18); BUN/Creat Ratio 15.6 RATIO (10-20); CRP < 2.90 mg/L (0.0-3.0); Calcium,Total 8.7 mg/dL (8.5-10.1); Chloride 107 mmol/L (98-107); Cholesterol 164 mg/dL (200); Creatinine, Serum 1.09 mg/dL (0.55-1.02); EST Glomerular Filtration Rate 56 mL/min (>60); Est Glom Filt Rate - Afr Amer 68 mL/min (>60); Globulin 3.3 g/dL (2.2-4.2); Glucose 158 mg/dL (74-106); High Density Lipoprotein 53 mg/dL; Potassium 4.1 mmol/L (3.5-5.1); Protein, Total 6.9 g/dL (6.4-8.2); Sodium Level 139 mmol/L (136-145); Thyroid Stim Hormone (TSH) 1.94 uIU/mL (0.358-3.74); Triglycerides 295 mg/dL; Very Low Density Lipoprotein 59 mg/dL (5-40)
[2023-02-24 18:37] LABS: Urine Bilirubin Dipstick 1 mg/dL (Negative)
[2023-02-24 18:38] LABS: Calcium Oxalate Crystals Ur 1+ /hpf (<or=2+); Squamous Epithelial Cells - UA 0-5 SEEN /hpf (5-10); White Blood Cells 0-5 SEEN /hpf (0-5)
[2023-02-24 18:39] LABS: Bacteria 1+ /hpf (None Seen); Hyaline Cast 5-10 SEEN /lpf (0-5)
== END | disposition home or self-care (01) ==
PROVIDERS: PCP Family Medicine; Referring Provider Family Medicine; Visit Provider Family Medicine
DX: M06.9 Rheumatoid arthritis, unspecified (principal); R55 Syncope and collapse; E78.5 Hyperlipidemia, unspecified
CPT/HCPCS: 36415; 80053; 80061; 81001; 82306; 82533; 82607; 84443; 85025; 85652; 86140

== ENCOUNTER → 2023-03-24 | Outpatient (CLI) | payer MEDICAID, SELFPAY ==
--- NOTE | 2023-03-24 06:33 | CDU_ITS ---
Reason For Study: Syncope Rt. Velocities/BP Lt. Velocities/BP Prox CCA 75.9/25.8 cm/sec. Prox CCA 71.1/25.8 cm/sec. Mid CCA 64.5/20.1 cm/sec. Mid CCA 71.1/26.7 cm/sec. Dist CCA 68.3/22 cm/sec. Dist CCA 57.9/22 cm/sec. Prox ICA 70.2/25.8 cm/sec. Prox ICA 51.3/21.1 cm/sec. Mid ICA 78.7/31.5 cm/sec. Mid ICA 69.2/22 cm/sec. Dist ICA 74/37.1 cm/sec. Dist ICA 54.1/25.8 cm/sec. Rt. ICA/CCA = 1.15. Lt. ICA/CCA = 0.97. Prox ECA 75.9/14.5 cm/sec. Prox ECA 69.2/13.5 cm/sec. Rt. Vert. 59.8/23 cm/sec. Lt. Vert. 56/23 cm/sec. Right Extracranial There is intimal thickening but no significant atherosclerotic plaque noted in the right common carotid artery. There is intimal thickening but no significant atherosclerotic plaque noted in the right internal carotid artery. There is intimal thickening but no significant atherosclerotic plaque noted in the right external carotid artery. Antegrade flow is noted in the right vertebral artery. Nonvascularized structure noted in the right thyroid that measures 0.94 x 1.01 x 1.91 cm. Left Extracranial There is intimal thickening but no significant atherosclerotic plaque noted in the left common carotid artery. There is intimal thickening but no significant atherosclerotic plaque noted in the left internal carotid artery. There is intimal thickening but no significant atherosclerotic plaque noted in the left external carotid artery. Antegrade flow is noted in the left vertebral artery. Procedure Carotid Duplex 91310. This is a Carotid Duplex examination using B-mode, color flow and specral Doppler. Exam performed in department. VL/Carotid Duplex Ultrasound Interpretation Summary Normal right extracranial internal carotid. Normal left extracranial internal carotid. Patent and antegrade vertebrals bilaterally. Nonvascularized structure noted in the right thyroid that measures 0.94 x 1.01 x 1.91 cm. Ordering Physician: Sumaya Finnegan Referring Physician: Ryan Diallo MD Performed By: Sindhu Marques RVT
--- NOTE | 2023-03-26 09:13 | STRESSREP ---
Stress Test Report Pharmacologic myocardial perfusion stress test. 52-year-old lady with a history of syncope Resting EKG demonstrates sinus tachycardia with a rate of 77 bpm. Resting blood pressure is 122/82 mmHg. 0.4 mg of regadenoson was infused per usual protocol followed by rapid intravenous saline flush injection. Continuous EKG monitoring was performed. The maximum heart rate was 114 bpm which was 67% of max impacted heart rate the maximum workload was 1 metabolic equivalent. At rest there were no ST or T wave changes noted to suggest ischemia and at peak infusion nonspecific ST changes were noted which did not meet the criteria for ischemia. No clinical angina is noted. The final blood pressure was 100/64 mmHg. Myocardial perfusion protocol. 50 mCi of technetium 99m sestamibi was injected at rest. 0.4 mg of regadenoson was infused per usual protocol. At peak infusion 45 mCi of technetium 99m sestamibi was injected stress images were obtained stress and rest images were reconstructed and compared in the short axis vertical long and horizontal long axis. Gated images were also obtained. Perfusion SPECT analysis: Review of the stress images demonstrate normal uptake of tracer noted in all areas of the myocardium. The resting images similar demonstrated normal uptake of tracer noted in all areas of the myocardium. No areas of reversibility are noted to suggest ischemia and no previous infarct is noted. Gated SPECT analysis: The gated ejection fraction is 80%. Conclusion: Normal pharmacologic myocardial perfusion stress test. Preserved ejection fraction.
== END | disposition home or self-care (01) ==
LOC: CVS 06:31
PROVIDERS: PCP Family Medicine; Referring Provider Nurse Practitioner Gerontology; Visit Provider Nurse Practitioner Gerontology
DX: R55 Syncope and collapse (principal)
CPT/HCPCS: 78452; 93017; 93880; A9500; A4216; J2785

== ENCOUNTER → 2023-04-01 | Outpatient (CLI) | payer MEDICAID, SELFPAY | END | disposition home or self-care (01) | LOC: SL 11:26 | PROVIDERS: PCP Family Medicine; Referring Provider Nurse Practitioner Acute Care; Visit Provider Nurse Practitioner Acute Care | DX: G47.10 Hypersomnia, unspecified (principal) | CPT/HCPCS: 95801; 95806 ==

== ENCOUNTER → 2023-04-29 | Outpatient (CLI) | payer MEDICAID, SELFPAY ==
--- NOTE | 2023-04-29 13:16 | BI_ITS ---
MAMMOGRAPHY - BILATERAL SCREENING REASON FOR EXAM: Female, 52 years old. Routine annual screening examination. PERTINENT HISTORY: Aunt with breast cancer. History of prior bilateral breast reduction surgery. TECHNIQUE: Digital bilateral breast caitlin (3D mammographic acquisition) in the CC and MLO projections. 2-D mediolateral oblique (MLO) and craniocaudad (CC) views of both breasts were obtained. CAD: Full Field Digital Mammography with Computer Added Detection was performed. COMPARISON: Comparison is made with prior outside examination of March 20, 2017. FINDINGS: Breast Composition: The breasts are almost entirely fatty. There are no dominant masses or suspicious calcifications. Stable calcified nodule in the central medial aspect of the left breast. No other significant abnormalities are identified. There has been no significant change since the prior study. BI/SCRN MAMM (CAD)W/CAITLIN BILAT IMPRESSION: Stable bilateral screening mammogram. Yearly follow-up mammogram recommended. (A) ASSESSMENT CATEGORY: BIRADS Category 2: Benign. A letter regarding these results will be sent to the patient by the facility within 30 days. Approximately 10% of breast cancers are not detected by mammography. A normal mammogram should not delay biopsy of a clinically suspicious abnormality. [id number] Electronically Signed: Kenn Leggett MD at 8:20 EST ,
--- NOTE | 2023-04-29 13:16 | US_ITS ---
STUDY: THYROID ULTRASOUND REASON FOR EXAM: Female, 52 years old. R nodule seen on carotid u/s TECHNIQUE: Ultrasound evaluation of the thyroid was performed with real-time and static resendez-scale imaging. COMPARISON: None. FINDINGS: RIGHT LOBE: The right lobe of the thyroid gland measures 5.2 x 1.8 x 1.4 cm. There is a homogeneous echotexture. Nodule 1:20 x 10 x 10 mm cystic anechoic wider than tall smoothly margin nodule with echogenic foci with comet tail artifacts (TR 1) in the lateral right lobe consistent with a colloid cyst. Nodule 2:6 x 3 x 6 mm solid hypoechoic wider than tall smoothly margin nodule with no echogenic foci (TR 4) in the medial right lobe consistent with an adenoma. LEFT LOBE: The left lobe of the thyroid gland measures 4.3 x 1.5 x 1.2 cm. There is a homogeneous echotexture. There are no demonstrated solid, cystic or complex lesions. ISTHMUS: The isthmus measures 4 mm thick. . The regional lymph nodes are normal. US/Thyroid IMPRESSION: Colloid cyst and small adenoma in the right lobe. Electronically Signed: Carroll Nichols MD at 23:26 EST ,
--- OUTSIDE RECORDS SUMMARY | 2023-04-29 14:27 | XMS RPT_ITS | CCD ---
Author Name Unknown Address [address] [place] [address] Organization [facility] Care Team Providers Care Professor Of Counseling Name Role Phone Polifrone, C Unavailable Unavailable PROVIDER, UNKNOWN Unavailable Unavailable Jenni, Pedrito Unavailable Unavailable POLIFRONE, ALEXANDER B Unavailable Unavailable POLIFRONE, ALEXANDER B Unavailable Unavailable NO REFERRING Unavailable Unavailable Unavailable Primary Care Provider UnavailDaniela Griffin MD Primary Care Provider Daniela Diallo MD Primary Care Provider Марина Bain Unavailable Daniela Diallo MD Primary Care Provider DANIELA DIALLO Primary Care Unavailabl e CASSIDY, MAURISIO Referring Unavailable Daniela Diallo MD Primary Care Provider NARAYAN GOMEZ Referring Unavailable DANIELA DIALLO Primary Care Unavailabl e CASSIDY, MAURISIO Referring Unavailable DANIELA DIALLO Primary Care Unavailabl e NARAYAN GOMEZ Attending Unavailable CASSIDY, MAURISIO Referring Unavailable DANIELA DIALLO Primary Care Unavailabl e CASSIDY, MAURISIO Attending Unavailable CASSIDY, MAURISIO Attending Unavailable DANIELA DIALLO Primary Care Unavailabl e DANIELA DIALLO Primary Care Unavailabl e CASSIDY, MAURISIO Referring Unavailable DANIELA DIALLO Primary Care Unavailabl e CASSIDY, MAURISIO Referring Unavailable CASSIDY, MAURISIO Attending Unavailable DANIELA DIALLO Primary Care Unavailabl e CASSIDY, MAURISIO Referring Unavailable Allergies Allergy Classification Reported Allergen(s) Allergy Type Date of Onset Reaction(s) Facility (1 source) ibuprofen; Translations: [IBUPROFEN] Drug Allergy [facility] Repository (1 source) SULFA (SULFONAMIDE A; Translations: [SULFA (SULFONAMIDE A] Propensity to adverse reactions (disorder) [facility] Repository (20 sources) Sulfonamides (Antibiotic); Translations: [SULFA (SULFONAMIDE ANTIBIOTICS)] Drug Allergy 7 Rash, Hives [facility] Medications Completed/Discontinued Medications Medication Drug Class(es) Dates Sig (Normalized) Sig (Original) acetaminophen 325 mg / HYDROcodone bitartrate 5 mg oral tablet (1 source) Opioid Agonist Start: 04-24-2021 take 1 tablet by mouth every six hours as needed HYDROcodone-aceta minophen (NORCO) 5-325 mg per tablet Indications: Bilateral ureteral calculi Take 1 tablet by mouth every 6 hours as needed for up to 10 doses. 30 tablet 0 04/24/2021 Active Problems Active Problems Problem Classification Problem Date Documented Da te Episodic/Chronic Genitourinary symptoms and ill-defined conditions (1 source) Microscopic hematuria; Translations: [Other microscopic hematuria] Episodic Malaise and fatigue (9 sources) Malaise and fatigue; Translations: [Other malaise] Onset: 09-03-2022 Episodic Nutritional deficiencies (2 sources) Vitamin D deficiency; Translations: [Vitamin D deficiency, unspecified] Onset: 03-10-2023 03-10-2023 Chronic Other aftercare (4 sources) Long-term current use of systemic steroid; Translations: [[facility] (current) use of systemic steroids] Episodic Other aftercare (2 sources) Taking high risk medication; Translations: [Other group marketing vp (current) drug therapy] 12-04-2022 Episodic Other non-traumatic joint disorders (5 sources) Multiple joint pain; Translations: [Pain in unspecified joint] Episodic Other non-traumatic joint disorders (1 source) Hip pain; Translations: [Pain in unspecified hip] Episodic Rheumatoid arthritis and related disease (12 sources) Seronegative rheumatoid arthritis; Translations: [Rheumatoid arthritis without rheumatoid factor, unspecified site] Onset: 09-03-2022 Chronic Past or Other Problems Problem Classification Problem Date Documented Da te Episodic/Chronic Abdominal pain (20 sources) Left upper quadrant pain; Translations: [Left upper quadrant pain] Onset: 07-13-2021 Episodic Calculus of urinary tract (20 sources) Ureteric stone; Translations: [Calculus of ureter] Onset: 04-11-2021 04-11-2021 Episodic Other aftercare (3 sources) Other assisted (current) drug therapy; Translations: [High risk medication use] Onset: 09-03-2022 Episodic Other aftercare (1 source) [facility] (current) use of systemic steroids; Translations: [[facility] current use of systemic steroids] Onset: 05-02-2022 Episodic Other non-traumatic joint disorders (3 sources) Pain in unspecified joint; Translations: [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, multiple sites] Onset: 09-03-2022 Episodic Other non-traumatic joint disorders (1 source) Pain in unspecified hip; Translations: [Hip pain] Onset: 05-02-2022 Episodic Unclassified (5 sources) Encounter for screening mammogram for malignant neoplasm of breast; Translations: [Encounter for screening for malignant neoplasm of cervix] Onset: 09-26-2016 Episodic Results Test Name Value Interpretation Reference Range Facil ity Vital Signs Date Time Vital Sign Value Performing Clinician Faci lity 05-02-2022 10:18-0500 Body height 156.2 cm Maurisio Disla MD Work Phone: [facility] 05-02-2022 10:18-0500 Body temperature 98.29 [degF] Maurisio Disla MD Work Phone: [facility] 05-02-2022 10:18-0500 Body weight 87.09 kg Maurisio Disla MD Work Phone: [facility] 05-02-2022 10:18-0500 Diastolic blood pressure 100 mm[Hg] Maurisio Disla MD Work Phone: [facility] 05-02-2022 10:18-0500 Heart rate 113 /min Maurisio Disla MD Work Phone: [facility] 05-02-2022 10:18-0500 Systolic blood pressure 154 mm[Hg] Maurisio Disla MD Work Phone: [facility] 01-30-2022 13:06-0400 Body height 156.2 cm Maurisio Disla MD Work Phone: [facility] 01-30-2022 13:06-0400 Body weight 88.45 kg Maurisio Disla MD Work Phone: [facility] 07-13-2021 10:50-0400 Body height 156.2 cm Shelbie Hopkins APRN.SUPERINTENDENT NONSELLING Work Phone: [facility] 07-13-2021 10:50-0400 Body weight 81.65 kg Shelbie Hopkins APRN.SUPERINTENDENT NONSELLING Work Phone: [facility] 07-13-2021 10:50-0400 Diastolic blood pressure 80 mm[Hg] Shelbie Hopkins APRN.SUPERINTENDENT NONSELLING Work Phone: [facility] 07-13-2021 10:50-0400 Systolic blood pressure 122 mm[Hg] Shelbie Hopkins APRN.SUPERINTENDENT NONSELLING Work Phone: [facility] Encounters Encounter Date Encounter Type Care Provider Facility Start: 03-10-2023 End: 03-10-2023 ambulatory MAURISIO DISLA Facility:[facility] Start: 03-10-2023 End: 03-10-2023 ambulatory Maurisio Disla MD Work Phone: [facility] Procedures Date Procedure Procedure Detail Performing Clinician Start: 05-02-2022 Radex hips bilateral with pelvis minimum 5 views Maurisio Disla MD Work Phone: Start: 07-13-2021 Ct abdomen & pelvis w/o contrast material Shelbie Hopkins APRN.CNP Work Phone: Start: 07-13-2021 Urnls dip stick/tabl et rgnt auto w/o microscopy Shelbie Hopkins APRN.SUPERINTENDENT NONSELLING Work Phone: Start: 04-19-2021 Radiologic exam abdo men 1 view Dale Mckeon MD Work Phone: Start: 09-26-2016 CONVERTED CYTOLOGY COUNTER TENDER Alexander Salguero Work Phone: Start: 10-26-2010 CONVERTED SURGICAL PATHOLOGY Alexander Salguero Work Phone: Start: 06-11-2001 CONVERTED SURGICAL PATHOLOGY Alexander Salguero Work Phone: Plan of Treatment Date Care Activity Detail Author Start: 12-12-2025 Diabetes Screening Diabetes Screenjim correia [facility] Start: 09-03-2025 DIABETES SCREEN DIABETES SCREEN [facility] Start: 04-12-2024 DIABETES SCREEN DIABETES SCREEN [facility] Start: 04-11-2024 DIABETES SCREEN DIABETES SCREEN [facility] Start: 03-10-2023 End: 06-09-2023 25-hydroxyvitamin D3 [Mass/volume] in Serum or Plasma VITAMIN D 25 HYDROXY Lab Routine Seronegative rheumatoid arthritis (HCC) High risk medication use Malaise and fatigue Vitamin D deficiency Expected: 03/10/2023, Expires: 06/09/2023 [facility] Work Phone: Immunizations Immunization Date Immunization Notes Care Provider Izabella crawley 03-13-2022 influenza virus vacc ine, unspecified formulation Narayan Gomez PA-C Work Phone: [facility] Payers Date Payer Category Payer Medicaid [id number] 2021 Private Health Insurance EHP AET NA EHP PLUS STAFF/NON STAFF / EHP Plus Kermit NB [id number] 2021-Present [address] [place] [address] PPO [id number] 2021 Medicaid [employer] [id number] 2021-Present [phone] [address] [place] [address] Medicaid [id number] 2021 Medicaid [id number] 2021 Medicaid [id number] Private Health Insurance Private Health Insurance [id number] Social History Date Type Detail Facility [facility] if ever smoked [facility] Start: 1970 Sex Assigned At Not on file C [facility] Start: 09-26-2016 Tobacco smoking stat [facility] Never smoker [facility] Start: 09-26-2016 Tobacco use and exposure Never used [facility] Start: 09-26-2016 End: 03-10-2023 Alcohol intake Current drinker of alcohol (finding) [facility] Start: 09-26-2016 Alcohol Comment Social [place] [facility] Start: 07-03-2021 End: 01-30-2022 Exposure to SARS-CoV-2 (event) Not sure [facility] Start: 1970 [facility] Start: 09-02-2022 End: 12-04-2022 History of Social function [facility] Start: 09-02-2022 End: 12-04-2022 Tobacco use panel [facility] National Score (1-10 0), lower number is lower risk 75 [facility] Start: 04-18-2021 Gender identity Identifies as female gender (finding) [facility] Start: 04-18-2021 Sexual orientation Heterosexual (fin ding) [facility] Clinical Notes 04-12-2021 to 03-10-2023 Maurisio Disla MD - 03/10/2023 2:12 PM ESTTelephone Encounter - Mignon Juarez LPN - 03/10/2023 8:34 AM ESTTelephone Encounter - Nancie Chapman MA - 02/20/2023 10:18 AM EST Note Date & Type Note Facility 03-10-2023 Note HNO ID: [id number] Author: Maurisio Disla MD Service: ? Author Type: Physician Type: Progress Notes Filed: 03/10/2023 2:28 PM Note Text: Subjective A phone visit telemedicine visit was substituted for a protocol-required in-person visit because of the recent COVID-19 pandemic which has caused disruption in normal operations spanning access to care, medical treatment, medications, etc. This phone or virtual visit was conducted to prevent exposure of the patient to the virus and to optimize the patient's safety that comes with inherent limitations of a phone encounter. I have communicated my name and active licensure. The patient's identity and physical location were verified at the time of this visit. Either the patient or their legal healthcare representative has been informed of the risks and benefits of -- and alternatives to -- treatment through a remote evaluation and consents to proceed with the evaluation remotely. HPI: 52-year-old pleasant lady with history of seronegative rheumatoid diagnosed in 2017-on recent blood work has positive anti-CCP of 46 is here for follow-up. She continues to be on Xeljanz-5 mg twice daily-dosing approved by insurance? Her pain is 2/10 in her hands feet and ankles. She denies any joint swelling but gets some swelling in the ankles late in the day. Stiffness in the morning is 1 to 2 hours. She is on prednisone 5 mg as needed for flares-she believes she is using it 1-2 times a a month but was given prednisone 30 tablets in January 2023 and is requesting another refill-she believes she has taken at least 10 pills? X-rays hips in April 2022 were normal, low back showed degenerative arthritis and SI joints showed early osteoarthritis. She was given Humira and methotrexate in the past by previous vp publisher development but did not notice any improvement with Humira and had some adverse effects of methotrexate? She was also given Plaquenil but had palpitations? She has not been on any treatment for rheumatoid arthritis for over a year. She had been on prednisone 10 mg daily from March 2021 up until her last visit January 2022. She has diabetesShe is on gabapentin and Ambien. New patient visit January 2022 Mj Cole is a 51 year old female who presents with history of seronegative rheumatoid arthritis diagnosed in 2017 by her previous vp publisher development, long-term prednisone use is here for evaluation. She is currently on prednisone 10 mg daily and has been on that dose since March 2021. She has been off her rheumatoid arthritis medications for a year. She was on Humira and methotrexate 6 tablets weekly? For approximately a year in the past. She felt like they did not work as well for her. They may have helped 30% and she did notice some increased pain prior to her next Humira dose. She stopped seeing her previous vp publisher development because of change in insurance and had to go off medications. While on Humira and methotrexate she was also on prednisone 5 mg daily. She is had difficulty weaning off prednisone in the past with increased pain. She was on tramadol in the past. She has type 2 diabetes and neuropathy and is on gabapentin 600 mg daily. She has a history of palpitations with Plaquenil. She gives history of photosensitivity and hair loss with methotrexate. She has history of kidney stones. Her pain is 5/10 in her hands, wrists, feet, ankles, low back and hips. She has some swelling in her ankles and feet. Stiffness in the morning is 2 hours. 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 Neuropathy Seronegative rheumatoid arthritis (HCC) PAST SURGICAL HISTORY Procedure Laterality Date SECTION HX x3 HYSTEROSCOPY,W/ENDOMETRIAL ABLATION KIDNEY STONE SURGERY HX 05/01/2021 Cystoscopy, pyelograms, bilateral ureteroscopy (semi-rigid and flexible), laser lithotripsy, left ureteral stent removal, right ureteral stent exchange ([id number]) LIGATE FALLOPIAN TUBE 2001 REDUCTION OF LARGE BREAST Health Maintenance Procedures Hepatitis B Vaccine(1 of 3 - 3-dose series) Never done HIV Screening Never done DTaP,Tdap,Td Vaccine(1 - Tdap) Never done Mammogram Screening Never done Lipid Screening Never done Colorectal Cancer Screening Never done Pap Testing due on 09/26/2021 HPV Testing due on 09/26/2021 Depression Assessment Never done Shingrix Vaccine(1 of 2) Never done Influenza Vaccine(1) due on 12/13/2022 Covid-19 Vaccine(2022- season) due on 12/13/2022 Discussed health maintenance, including regular aerobic exercise, low fat diet, and periodic exams. Health Maintenance Immunizations Given Immunizations: Immunization History Administered Date(s) Administered COVID-19 vaccine (CHELA) 05/24/2021 Current Outpatient Medications Medication Sig predniSONE (DELTASONE) 5 mg tablet Take (more content not included)... [facility] 03-10-2023 History of Present illness Narrative Subjective A phone visit telemedicine visit was substituted for a protocol-required in-person visit because of the recent COVID-19 pandemic which has caused disruption in normal operations spanning access to care, medical treatment, medications, etc. This phone or virtual visit was conducted to prevent exposure of the patient to the virus and to optimize the patient's safety that comes with inherent limitations of a phone encounter. I have communicated my name and active licensure. The patient's identity and physical location were verified at the time of this visit. Either the patient or their legal healthcare representative has been informed of the risks and benefits of -- and alternatives to -- treatment through a remote evaluation and consents to proceed with the evaluation remotely. HPI: 52-year-old pleasant lady with history of seronegative rheumatoid diagnosed in 2016-on recent blood work has positive anti-CCP of 46 is here for follow-up. She continues to be on Xeljanz-5 mg twice daily-dosing approved by insurance? Her pain is 2/10 in her hands feet and ankles. She denies any joint swelling but gets some swelling in the ankles late in the day. Stiffness in the morning is 1 to 2 hours. She is on prednisone 5 mg as needed for flares-she believes she is using it 1-2 times a a month but was given prednisone 30 tablets in January 2023 and is requesting another refill-she believes she has taken at least 10 pills? X-rays hips in April 2022 were normal, low back showed degenerative arthritis and SI joints showed early osteoarthritis. She was given Humira and methotrexate in the past by previous vp publisher development but did not notice any improvement with Humira and had some adverse effects of methotrexate? She was also given Plaquenil but had palpitations? She has not been on any treatment for rheumatoid arthritis for over a year. She had been on prednisone 10 mg daily from March 2021 up until her last visit January 2022. She has diabetesShe is on gabapentin and Ambien. New patient visit January 2022 Mj Cole is a 51 year old female who presents with history of seronegative rheumatoid arthritis diagnosed in 2016 by her previous vp publisher development, long-term prednisone use is here for evaluation. She is currently on prednisone 10 mg daily and has been on that dose since March 2021. She has been off her rheumatoid arthritis medications for a year. She was on Humira and methotrexate 6 tablets weekly? For approximately a year in the past. She felt like they did not work as well for her. They may have helped 30% and she did notice some increased pain prior to her next Humira dose. She stopped seeing her previous vp publisher development because of change in insurance and had to go off medications. While on Humira and methotrexate she was also on prednisone 5 mg daily. She is had difficulty weaning off prednisone in the past with increased pain. She was on tramadol in the past. She has type 2 diabetes and neuropathy and is on gabapentin 600 mg daily. She has a history of palpitations with Plaquenil. She gives history of photosensitivity and hair loss with methotrexate. She has history of kidney stones. Her pain is 5/10 in her hands, wrists, feet, ankles, low back and hips. She has some swelling in her ankles and feet. Stiffness in the morning is 2 hours. 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 Neuropathy Seronegative rheumatoid arthritis (HCC) PAST SURGICAL HISTORY Procedure Laterality Date SECTION HX x3 HYSTEROSCOPY,W/ENDOMETRIAL ABLATION KIDNEY STONE SURGERY HX 05/01/2021 Cystoscopy, pyelograms, bilateral ureteroscopy (semi-rigid and flexible), laser lithotripsy, left ureteral stent removal, right ureteral stent exchange ([id number]) LIGATE FALLOPIAN TUBE 2001 REDUCTION OF LARGE BREAST Health Maintenance Procedures Hepatitis B Vaccine(1 of 3 - 3-dose series) Never done HIV Screening Never done DTaP,Tdap,Td Vaccine(1 - Tdap) Never done Mammogram Screening Never done Lipid Screening Never done Colorectal Cancer Screening Never done Pap Testing due on 09/26/2021 HPV Testing due on 09/26/2021 Depression Assessment Never done Shingrix Vaccine(1 of 2) Never done Influenza Vaccine(1) due on 12/13/2022 Covid-19 Vaccine(2 - season) due on 12/13/2022 Discussed health maintenance, including regular aerobic exercise, low fat diet, and periodic exams. Health Maintenance Immunizations Given Immunizations: Immunization History Administered Date(s) Administered COVID-19 vaccine ([employer]) 05/24/2021 Current Outpatient Medications Medication Sig predniSONE (DELTASONE) 5 mg tablet Take 1 tablet daily as needed for flares tofacitinib tablet 5 mg (XELJANZ) Take 1 tablet (5 mg) by mouth twice daily. LORazepam (ATIVAN) 0.5 mg aspirin 81 mg cap Take 81 mg by mouth once daily. gabapentin (NEURONTIN) 800 mg tablet Take 800 mg by mouth three times daily. tiZANidine HCl (ZANAFLEX) 4 mg capsule Take 4 mg by mouth three times daily. sertraline (ZOLOFT) 100 mg tablet Take 200 mg by mouth once daily. rizatriptan (MAXALT) 10 mg tablet Take 10 mg by mouth as needed. May repeat in 2 hours if needed PROAIR HFA 90 mcg/actuation inhaler Inhale 1 Puff as instructed every 4 hours as needed. Zolpidem (AMBIEN CR) 12.5 mg CR tablet Take 12.5 mg by mouth at bedtime as needed. No current facility-administered medications for this visit. ALLERGIES Allergen Reactions Sulfa (Sulfonamide * Rash, Hives FAMILY HISTORY Problem Relation Age of Onset Heart Mother Hypertension Mother Thyroid Mother Hypo Heart Father Hypertension Father Hypertension Brother other (Fibromyalgia) Brother other (rheumatoid arthritis) Paternal Grandmother Social History Tobacco Use Smoking status: Never Smokeless tobacco: Never Substance Use Topics Alcohol use: Yes Comment: Social Drug use: No History Review: I have reviewed and modified as needed, the following during this visit: Allergies, Past Medical History, Past Surgical History, Past Family History, Past Social History. Review of Systems CONSTITUTIONAL: Recent Weight Gain: No Recent Weight Loss: No Fatigue: No Weakness: no Fever: No EYES: Pain: No Redness: No Loss of vision: No Double or blurred vision: No Dryness: Yes Feels like something in eye: No Itching eyes: No [id number]-THROAT: Ringing in ears: Yes Loss of hearing: Yes Nosebleeds: No Loss of smell: No Dryness in nose: No Runny Nose: No Sore tongue: No Bleeding gums: No Sores in mouth: No Loss of taste: No Dryness of mouth: Yes Frequent sore throats: No Hoarseness: No Difficulty in swallowing: No CARDIOVASCULAR: Pain in chest: No Irregular heart beat: No Sudden changes in heart beat: No High blood pressure: No Heart murmurs: No RESPIRATORY: Shortness of breath: No Difficulty in breathing at night: No Swollen legs or feet: No Cough: No Cough of blood: No Wheezing (asthma): No GASTROINTESTINAL: Nausea: No Vomiting of blood or coffee ground material: No Stomach pain relieved by food or milk: No Jaundice: No Increasing constipation: Yes Persistent diarrhea: No Blood in stools: No Black stools: No Heartburn: No GENITOURINARY: Difficult urination: No Pain or burning on urination: No Blood in urine: No Cloudy, smoky urine: No Pus in urine: No Discharge from penis/vagina: No Getting up at night to pass urine: No Vaginal dryness: No Rash/ulcers: No Sexual difficulties: No Prostate trouble: No MUSCULOSKELETAL: Morning Stiffness: Yes, Joint Pain: Yes, Muscle Weakness: Yes, and Joint Swelling: Yes INTEGUMENTARY: Easy Bruising: Yes Redness: No Rash: No Hives: No Sun sensitive: No Tightness: No Nodules/bumps: No Hair loss: No Color changes of hands or feet in the cold: No NEUROLOGICAL SYSTEM: Headaches: Yes Dizziness: No Fainting: No Muscle spasm: Yes Loss of consciousness: No Sensitivity or pain of hands and/or feet: Yes Memory loss: No Night sweats: No PSYCHIATRIC: Excessive worries: No Anxiety: Yes Easily losing temper: No Depression: Yes Agitation: No Difficulty falling asleep: Yes Difficulty staying asleep: Yes ENDOCRINE: Excessive thirst: No HEMATOLOGIC/LYMPHATIC: Swollen glands: No Tender glands: No Anemia: No Bleeding tendency: No Transfusion/ when: No ALLERGIC/IMMUNOLOGIC; Frequent sneezing: No Increased susceptibility to infection: No LMP (LMP Unknown) VIDEO EXAM: (performed via video enabled technology) GENERAL: Well appearing, alert, comfortable, in no acute distress,well nourished. Eyes: vision grossly intact Hearing -grossly intact HEENT: external ears normal. External nose normal, NECK: thyroid appears symmetric Neuro- Speech intact. No facial droop Musculoskeletal- Able to make a tight fist with both hands. Good range of motion both shoulders Orientation - Oriented to time, place, person & situation. Appropriate mood and affect. Good insight. Good judgment. Office visit April 2022 Physical Exam GENERAL: Well appearing, alert, comfortable, in no acute distress, well-hydrated, well nourished. HEENT: Negative for external ears normal. Canals are clear. Both TMs visualized and are normal. Eye Exam normal. External nose normal, no nasal ulcer or throat ulcer. NECK: NECK Supple, no adenopathy; thyroid symmetric, normal size, no bruits CARDIAC: regular rate and rhythm, No murmur asculated., and Equal peripheral pulses RESPIRATORY: Lungs clear to auscultation. No wheezing, rhonchi, rales VASCULAR: RRR without murmur, gallop, or rubs. No ectopy. ABDOMEN: Soft, non tender. BS active. No masses or organomegaly. LYMPHATIC: Negative for adenopathy in the neck, axillae, groin, supraclavicular and auricular. NEURO: Motor and sensory exam normal MOTOR: Normal; including tone, gait, stressed gait, power and coordination. SKIN: Negative for alopecia, skin rash, malar rash, skin lesion, skin ulcer, pits, thickening, color changes, telangiectasias, nail changes, nail ridging, nail pitting, onycholysis MUSCULOSKELETAL: Mild tenderness both wrists Slight fullness right second third MCPs? Impingement both shoulders Tenderness bilateral trochanteric bursa with impingement both hips Tenderness both ankles Tenderness of MTPs bilaterally Tenderness lower lumbar spine and both SI joints Office visit January 2022 tenderness right wrist Tenderness right trochanteric bursa Lab Results: April 2022 Negative January 2022 Uric acid 4.1 CRP 0.4 Vitamin D 79.5 Hepatitis panel negative, rheumatoid factor negative, anti-CCP 46, SHAJI negative TSH 3.090 Vitamin D75.5 CBC normal ESR 2021January 2022 Creatinine 0.96 Liver enzyme normal Glucose 199 04/12/2021 ALT 17 04/11/2021 WBC 7.02 04/12/2021 Hemoglobin 11.9 04/12/2021 Platelet Count 279 04/12/2021 Serology: January 2022Hepatitis panel negative, rheumatoid factor negative, anti-CCP 46, SHAJI negative Office note November 2019 from previous rheumatologistNegative rheumatoid factor, negative anti-CCP, negative HLA-B27 and positive SHAJI. QUAN panel negative, double-stranded QUAN negative, C3 and C4 normal Radiology: X-rays April 2022 SI joints: No convincing widening, narrowing, or sclerosis. Early degenerative changes bilaterally. No acute fracture or dislocation. Hip joints maintained. Lumbar spine: Counting reference: Lumbosacral junction. For the purposes of this report, L4-5 is considered the level of the iliac crest. Grade 1 anterolisthesis L4/5 Vertebral body heights maintained Mild disc space narrowing most notable L4/5 Multilevel endplate osteophytes Lower lumbar predominant facet degenerative change Incidental note cholelithiasis X-rays bilateral feet January 2022 She left foot: Mild osteoarthritic changes. No evidence of bony erosions or soft tissue calcifications. No evidence of acute fracture or dislocation. Right foot: Mild osteoarthritic changes. Small calcaneal enthesophytes. No evidence of bony erosion or soft tissue calcifications radiographically. No evidence of acute fracture or dislocation. X-rays bilateral hands January 2022 Left hand: Minimal osteoarthritic changes. No evidence of osseous erosion or soft tissue calcifications. No evidence of acute fracture or dislocation. Right hand: Minimal osteoarthritic changes. No evidence of osseous erosion or soft tissue calcifications. No evidence of acute fracture or dislocation. Assessment (M06.00) Seronegative rheumatoid arthritis (HCC) (primary encounter diagnosis) (Z79.899) High risk medication use (R53.81, R53.83) Malaise and fatigue (E55.9) Vitamin D deficiency 52-year-old pleasant lady with 1. Anti-CCP positive rheumatoid arthritis-diagnosed with seronegative rheumatoid in the past by previous vp publisher development-failed methotrexate, Plaquenil and Humira. Has weaned off prednisone 10 mg daily since January 2022, prednisone daily for 4 weeks in April 2022 and weaned off again. On Xeljanz 5 mg twice daily-appears to be in remission but continues to use prednisone intermittently 2. Long-term prednisone therapy-weaned off prednisone 5 mg daily in May 2022 has been on prednisone 10 mg daily since March 2021 and prior to that was on prednisone 5 mg daily since 2016? Weaned off prednisone January 2022 but continues to use prednisone intermittently 3. High-risk medication-on Xeljanz daily since July 2022. Failed methotrexate 6 tablets weekly in the past and Humira subcu every other week-on treatment for a year before with mild response? She describes some adverse effects of methotrexate-photosensitivity and hair loss. History of Plaquenil use but had palpitations. #4 diabetes and diabetic neuropathy-on treatment 5. Fatigue-stable #6 Degenerative arthritis lower lumbar spine-continues to describe hip and low back pain-x-ray hips normal Plan Rheumatoid arthritis stable-not seeing much disease activity and no major flares Believes she is taking prednisone 1 to 2 tablets a month but was given a prescription for 30 tablets last month and has used 10 tablets already? Avoid prednisone use and monitor use carefully Continue Xeljanz 5 mg twice daily-twice daily dosing for insurance reasons? Blood work to monitor medication and disease activity every 3 months Check vitamin D level Continue treatment for diabetes. She is also on gabapentin and Ambien Follow-up in 3 months with physician trading assistant, 6 months with me This note was partially generated using [employer] voice recognition system, and there may be some incorrect words, spellings, and punctuation that were not noted in checking the note before saving. [facility] on 11/27/23 CBC + DIFF COMP METABOLIC PANEL C-REACTIVE PROTEIN (CRP) SED RATE WESTERGREN VITAMIN D 25 HYDROXY No follow-ups on file. Maurisio Disla MD documented in this encounter [facility] 03-10-2023 Miscellaneous Notes Pharmacy faxed requesting the following refill. Requested Prescriptions Pending Prescriptions Disp Refills XELJANZ 5 mg tablet [Pharmacy Med Name: XELJANZ 5 MG TABLET] 60 tablet Sig: Take 1 tablet (5 mg) by mouth two times a day. Patient last appointment: 12/04/2022 Next Appointment: 03/10/2023 Patient Phone numbers: [phone] (home) Request is for script(s) [place] [address] [address] [phone] Mignon Juarez LPN documented in this encounter [facility] 02-20-2023 Miscellaneous Notes Pharmacy faxed requesting the following refill. Requested Prescriptions Pending Prescriptions Disp Refills predniSONE (DELTASONE) 5 mg tablet [Pharmacy Med Name: predniSONE 5 MG Oral Tablet] 30 tablet 0 Sig: TAKE 1 TABLET BY MOUTH ONCE DAILY NEEDED FOR FLARES Patient last appointment: 12/04/22 Next Appointment: 03/10/23 Patient Phone numbers: [phone] (home) Request is for script(s) to be escript to pharmacy. Nancie Chapman MA documented in this encounter [facility] 01-31-2023 Miscellaneous Notes Patient faxed requesting the following refill. Duplicate request Requested Prescriptions Pending Prescriptions Disp Refills predniSONE (DELTASONE) 5 mg tablet [Pharmacy Med Name: predniSONE 5 MG Oral Tablet] 30 tablet 0 Sig: TAKE 1 TABLET BY MOUTH ONCE DAILY NEEDED FOR FLARES Patient last appointment: 12/04/22 Next Appointment: 03/10/23 Patient Phone numbers: [phone] (home) Request is for script(s) to be escript to pharmacy. Nancie Chapman MA documented in this encounter [facility] 01-31-2023 Miscellaneous Notes Patient sent a [employer] message requesting the following refill. Requested Prescriptions Pending Prescriptions Disp Refills predniSONE (DELTASONE) 5 mg tablet 30 tablet 0 Sig: Take 1 tablet daily as needed for flares Patient last appointment: 12/04/22 Next Appointment: 03/10/23 Patient Phone numbers: [phone] (home) Request is for script(s) to be escript to pharmacy. Nancie Chapman MA documented in this encounter [facility] 12-09-2022 Miscellaneous Notes Pharmacy faxed requesting the following refill. Requested Prescriptions Pending Prescriptions Disp Refills tofacitinib (XELJANZ) 5 mg tablet [Pharmacy Med Name: XELJANZ 5 MG TABLET] 180 tablet 0 Sig: Take 1 tablet (5 mg) by mouth twice daily. Patient last appointment: 05/02/2022 Next Appointment: 03/10/2023 Patient Phone numbers: [phone] (home) Request is for script(s) to be escript to pharmacy. Shayy Hair MA documented in this encounter [facility] 12-04-2022 Note HNO ID: [id number] Author: Narayan Gomez PA-C Service: ? Author Type: Physician Motorcycle Racer Type: Progress Notes Filed: 12/04/2022 3:02 PM Note Text: [facility] Narayan Gomez [address] [place] [address] RHEUMATOLOGY PROGRESS NOTE. VIRTUAL VISIT PROGRESS NOTE This is a virtual visit using HIPAA compliant video platform. It required patient-provider interaction for the medical decision making as documented below using [employer]. I have communicated my name and active licensure. The patient?s identity and physical location were verified at the time of this visit. Either the patient or their legal healthcare representative has been informed of the risks and benefits of -- and alternatives to -- treatment through a remote evaluation and consents to proceed with the evaluation remotely. Subjective HPI: 52-year-old pleasant lady with history of seronegative rheumatoid diagnosed in 2016-on recent blood work has positive anti-CCP of 46 is here for evaluation. She was on prednisone 10 mg daily January 2022 but has weaned off prednisone 04/2022 but was symptomatic and was given prednisone 5 mg daily for a few more weeks. She is currently not on prednisone. She is on Xeljanz 5 mg BID. No missed doses or recent infections. 5/10 in hands, wrists, shoulders, low back, hips, knees, ankles, feet Swelling- ankles AM stiffness- 2 hours Still reports flares mostly in her hands 1-2 times per month. Hasn't used prednisone lately but will if NSAIDs do not help (tried ibuprofen). Has had some syncopal episodes. Scheduled for tilt table testing soon through cardiology Rinvoq was denied. X-rays hips in April 2022 were normal, low back showed degenerative arthritis and SI joints showed early osteoarthritis. She was given Humira and methotrexate in the past by previous vp publisher development but did not notice any improvement with Humira and had some adverse effects of methotrexate? She was also given Plaquenil but had palpitations? She has not been on any treatment for rheumatoid arthritis for over a year. She had been on prednisone 10 mg daily from March 2021 up until her last visit January 2022. She has diabetes-recent hemoglobin A1c was 6.4. She is on gabapentin and Ambien. New patient visit January 2022 Mj Cole is a 51 year old female who presents with history of seronegative rheumatoid arthritis diagnosed in 2016 by her previous vp publisher development, long-term prednisone use is here for evaluation. She is currently on prednisone 10 mg daily and has been on that dose since March 2021. She has been off her rheumatoid arthritis medications for a year. She was on Humira and methotrexate 6 tablets weekly? For approximately a year in the past. She felt like they did not work as well for her. They may have helped 30% and she did notice some increased pain prior to her next Humira dose. She stopped seeing her previous vp publisher development because of change in insurance and had to go off medications. While on Humira and methotrexate she was also on prednisone 5 mg daily. She is had difficulty weaning off prednisone in the past with increased pain. She was on tramadol in the past. She has type 2 diabetes and neuropathy and is on gabapentin 600 mg daily. She has a history of palpitations with Plaquenil. She gives history of photosensitivity and hair loss with methotrexate. She has history of kidney stones. Her pain is 5/10 in her hands, wrists, feet, ankles, low back and hips. She has some swelling in her ankles and feet. Stiffness in the morning is 2 hours. 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 Neuropathy Seronegative rheumatoid arthritis (HCC) PAST SURGICAL HISTORY Procedure Laterality Date SECTION HX x3 HYSTEROSCOPY,W/ENDOMETRIAL ABLATION KIDNEY STONE SURGERY HX 05/01/2021 Cystoscopy, pyelograms, bilateral ureteroscopy (semi-rigid and flexible), laser lithotripsy, left ureteral stent removal, right ureteral stent exchange ([id number]) LIGATE FALLOPIAN TUBE 2002 REDUCTION OF LARGE BREAST Health Maintenance Procedures HEPATITIS B(1 of 3 - 3-dose series) Never done HIV SCREENING Never done DTAP,TDAP,TD(1 - Tdap) Never done MAMMOGRAM Never done LIPID SCREEN Never done COLORECTAL CANCER SCREENING Never done COVID-19 VACCINE(2 - Booster for Chela series) due on 07/19/2021 PAP TESTING due on 09/26/2021 HPV TESTING due on 09/26/2021 DEPRESSION ASSESSMENT Never done SHINGRIX VACCINE(1 of 2) Never done Discussed health maintenance, including regular aerobic exercise, low fat diet, and periodic exams. Health Maintenance Immunizations Given Immunizations: Immunization History Administered Date(s) Administered COVID-19 vaccine (CHELA) (more content not included)... [facility] 12-04-2022 History of Present illness Narrative Images from the original note were not included. [facility] Narayan Gomez [address] [place] [address] [place] [address] RHEUMATOLOGY PROGRESS NOTE. VIRTUAL VISIT PROGRESS NOTE This is a virtual visit using HIPAA compliant video platform. It required patient-provider interaction for the medical decision making as documented below using [employer]. I have communicated my name and active licensure. The patient s identity and physical location were verified at the time of this visit. Either the patient or their legal healthcare representative has been informed of the risks and benefits of -- and alternatives to -- treatment through a remote evaluation and consents to proceed with the evaluation remotely. Subjective HPI: 52-year-old pleasant lady with history of seronegative rheumatoid diagnosed in 2016-on recent blood work has positive anti-CCP of 46 is here for evaluation. She was on prednisone 10 mg daily January 2022 but has weaned off prednisone 04/2022 but was symptomatic and was given prednisone 5 mg daily for a few more weeks. She is currently not on prednisone. She is on Xeljanz 5 mg BID. No missed doses or recent infections. 5/10 in hands, wrists, shoulders, low back, hips, knees, ankles, feet Swelling- ankles AM stiffness- 2 hours Still reports flares mostly in her hands 1-2 times per month. Hasn't used prednisone lately but will if NSAIDs do not help (tried ibuprofen). Has had some syncopal episodes. Scheduled for tilt table testing soon through cardiology Rinvoq was denied. X-rays hips in April 2022 were normal, low back showed degenerative arthritis and SI joints showed early osteoarthritis. She was given Humira and methotrexate in the past by previous vp publisher development but did not notice any improvement with Humira and had some adverse effects of methotrexate? She was also given Plaquenil but had palpitations? She has not been on any treatment for rheumatoid arthritis for over a year. She had been on prednisone 10 mg daily from March 2021 up until her last visit January 2022. She has diabetes-recent hemoglobin A1c was 6.4. She is on gabapentin and Ambien. New patient visit January 2022 Mj Cole is a 51 year old female who presents with history of seronegative rheumatoid arthritis diagnosed in 2017 by her previous vp publisher development, long-term prednisone use is here for evaluation. She is currently on prednisone 10 mg daily and has been on that dose since March 2021. She has been off her rheumatoid arthritis medications for a year. She was on Humira and methotrexate 6 tablets weekly? For approximately a year in the past. She felt like they did not work as well for her. They may have helped 30% and she did notice some increased pain prior to her next Humira dose. She stopped seeing her previous vp publisher development because of change in insurance and had to go off medications. While on Humira and methotrexate she was also on prednisone 5 mg daily. She is had difficulty weaning off prednisone in the past with increased pain. She was on tramadol in the past. She has type 2 diabetes and neuropathy and is on gabapentin 600 mg daily. She has a history of palpitations with Plaquenil. She gives history of photosensitivity and hair loss with methotrexate. She has history of kidney stones. Her pain is 5/10 in her hands, wrists, feet, ankles, low back and hips. She has some swelling in her ankles and feet. Stiffness in the morning is 2 hours. 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 Neuropathy Seronegative rheumatoid arthritis (HCC) PAST SURGICAL HISTORY Procedure Laterality Date SECTION HX x3 HYSTEROSCOPY,W/ENDOMETRIAL ABLATION KIDNEY STONE SURGERY HX 05/01/2021 Cystoscopy, pyelograms, bilateral ureteroscopy (semi-rigid and flexible), laser lithotripsy, left ureteral stent removal, right ureteral stent exchange ([id number]) LIGATE FALLOPIAN TUBE 2002 REDUCTION OF LARGE BREAST Health Maintenance Procedures HEPATITIS B(1 of 3 - 3-dose series) Never done HIV SCREENING Never done DTAP,TDAP,TD(1 - Tdap) Never done MAMMOGRAM Never done LIPID SCREEN Never done COLORECTAL CANCER SCREENING Never done COVID-19 VACCINE(2 - Booster for Chela series) due on 07/19/2021 PAP TESTING due on 09/26/2021 HPV TESTING due on 09/26/2021 DEPRESSION ASSESSMENT Never done SHINGRIX VACCINE(1 of 2) Never done Discussed health maintenance, including regular aerobic exercise, low fat diet, and periodic exams. Health Maintenance Immunizations Given Immunizations: Immunization History Administered Date(s) Administered COVID-19 vaccine (CHELA) 05/24/2021 Current Outpatient Medications Medication Sig LORazepam (ATIVAN) 0.5 mg aspirin 81 mg cap Take 81 mg by mouth once daily. gabapentin (NEURONTIN) 800 mg tablet Take 800 mg by mouth three times daily. tiZANidine HCl (ZANAFLEX) 4 mg capsule Take 4 mg by mouth three times daily. sertraline (ZOLOFT) 100 mg tablet Take 200 mg by mouth once daily. rizatriptan (MAXALT) 10 mg tablet Take 10 mg by mouth as needed. May repeat in 2 hours if needed PROAIR HFA 90 mcg/actuation inhaler Inhale 1 Puff as instructed every 4 hours as needed. Zolpidem (AMBIEN CR) 12.5 mg CR tablet Take 12.5 mg by mouth at bedtime as needed. tofacitinib tablet 5 mg (XELJANZ) Take 1 tablet (5 mg) by mouth twice daily. predniSONE (DELTASONE) 5 mg tablet Take 1 tablet daily as needed for flares No current facility-administered medications for this visit. ALLERGIES Allergen Reactions Sulfa (Sulfonamide * Rash, Hives FAMILY HISTORY Problem Relation Age of Onset Heart Mother Hypertension Mother Thyroid Mother Hypo Heart Father Hypertension Father Hypertension Brother other (Fibromyalgia) Brother other (rheumatoid arthritis) Paternal Grandmother Social History Tobacco Use Smoking status: Never Smokeless tobacco: Never Substance Use Topics Alcohol use: Yes Comment: Social Drug use: No History Review: I have reviewed and modified as needed, the following during this visit: Allergies, Past Medical History, Past Surgical History, Past Family History, Past Social History. LMP (LMP Unknown) REVIEW OF SYSTEMS: GENERAL: feeling well without fatigue, no recent change in weight As noted in HPI PHYSICAL EXAMINATION: VIDEO EXAM: (if completed, performed via video enabled technology) GENERAL: alert and appropriate, in no distress, well-hydrated, well nourished, and happy, smiling, interactive EXTREMITIES: Able to make a tight fist with both hands. Good range of motion both shoulders Office visit April 2022 Physical Exam GENERAL: Well appearing, alert, comfortable, in no acute distress, well-hydrated, well nourished. HEENT: Negative for external ears normal. Canals are clear. Both TMs visualized and are normal. Eye Exam normal. External nose normal, no nasal ulcer or throat ulcer. NECK: NECK Supple, no adenopathy; thyroid symmetric, normal size, no bruits CARDIAC: regular rate and rhythm, No murmur asculated., and Equal peripheral pulses RESPIRATORY: Lungs clear to auscultation. No wheezing, rhonchi, rales VASCULAR: RRR without murmur, gallop, or rubs. No ectopy. ABDOMEN: Soft, non tender. BS active. No masses or organomegaly. LYMPHATIC: Negative for adenopathy in the neck, axillae, groin, supraclavicular and auricular. NEURO: Motor and sensory exam normal MOTOR: Normal; including tone, gait, stressed gait, power and coordination. SKIN: Negative for alopecia, skin rash, malar rash, skin lesion, skin ulcer, pits, thickening, color changes, telangiectasias, nail changes, nail ridging, nail pitting, onycholysis MUSCULOSKELETAL: Mild tenderness both wrists Slight fullness right second third MCPs? Impingement both shoulders Tenderness bilateral trochanteric bursa with impingement both hips Tenderness both ankles Tenderness of MTPs bilaterally Tenderness lower lumbar spine and both SI joints Office visit January 2022 tenderness right wrist Tenderness right trochanteric bursa Lab Results: 08/2022 Cr 1.06 LFT normal CRP normal CBC normal ESR 23 April 2022 Negative January 2022 Uric acid 4.1 CRP 0.4 Vitamin D 79.5 Hepatitis panel negative, rheumatoid factor negative, anti-CCP 46, SHAJI negative TSH 3.090 Vitamin D75.5 CBC normal ESR 2021January 2022 Creatinine 0.96 Liver enzyme normal Glucose 199 04/12/2021 ALT 17 04/11/2021 WBC 7.02 04/12/2021 Hemoglobin 11.9 04/12/2021 Platelet Count 279 04/12/2021 Serology: January 2022Hepatitis panel negative, rheumatoid factor negative, anti-CCP 46, SHAJI negative Office note November 2019 from previous rheumatologistNegative rheumatoid factor, negative anti-CCP, negative HLA-B27 and positive SHAJI. QUAN panel negative, double-stranded QUAN negative, C3 and C4 normal Radiology: X-rays April 2022 SI joints: No convincing widening, narrowing, or sclerosis. Early degenerative changes bilaterally. No acute fracture or dislocation. Hip joints maintained. Lumbar spine: Counting reference: Lumbosacral junction. For the purposes of this report, L4-5 is considered the level of the iliac crest. Grade 1 anterolisthesis L4/5 Vertebral body heights maintained Mild disc space narrowing most notable L4/5 Multilevel endplate osteophytes Lower lumbar predominant facet degenerative change Incidental note cholelithiasis X-rays bilateral feet January 2022 She left foot: Mild osteoarthritic changes. No evidence of bony erosions or soft tissue calcifications. No evidence of acute fracture or dislocation. Right foot: Mild osteoarthritic changes. Small calcaneal enthesophytes. No evidence of bony erosion or soft tissue calcifications radiographically. No evidence of acute fracture or dislocation. X-rays bilateral hands January 2022 Left hand: Minimal osteoarthritic changes. No evidence of osseous erosion or soft tissue calcifications. No evidence of acute fracture or dislocation. Right hand: Minimal osteoarthritic changes. No evidence of osseous erosion or soft tissue calcifications. No evidence of acute fracture or dislocation. Assessment (M06.00) Seronegative rheumatoid arthritis (HCC) (primary encounter diagnosis) (Z79.899) High risk medication use (M25.50) 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, multiple sites 52-year-old pleasant lady with 1. Anti-CCP positive rheumatoid arthritis-diagnosed with seronegative rheumatoid in the past by previous vp publisher development-failed methotrexate, Plaquenil and Humira. Has weaned off prednisone 10 mg daily since January 2022, prednisone daily for 4 weeks in April 2022 and weaned off again. On Xeljanz 11 mg daily for the last 2 weeks-continues to describe generalized pain 2. Long-term prednisone therapy-weaned off prednisone 5 mg daily in May 2022 has been on prednisone 10 mg daily since March 2021 and prior to that was on prednisone 5 mg daily since 2017? Weaned off prednisone January 2022 3. High-risk medication-on Xeljanz daily since July 2022. Failed methotrexate 6 tablets weekly in the past and Humira subcu every other week-on treatment for a year before with mild response? She describes some adverse effects of methotrexate-photosensitivity and hair loss. History of Plaquenil use but had palpitations. #4 diabetes and diabetic neuropathy-on treatment 5. Fatigue-symptomatic #6 Degenerative arthritis lower lumbar spine-continues to describe hip and low back pain-x-ray hips normal Plan Continue Xeljanz 5 mg BID- no evidence of swelling on video today. Pain might be from osteoarthritis Can use NSAIDs as needed- recent creatinine elevated- monitor closely Taking prednisone 5 mg 1-2 times per month Continue to stay off prednisone assisted Continues to describe pain in the low back and hips-suspect degenerative arthritis back, x-ray hips normal If significant low back pain may need to see pain management Blood work to monitor medication and disease activity today Continue treatment for diabetes. She is also on gabapentin and Ambien Scheduled for tilt table testing through cardiology Follow-up in [address] Disla Time: 18 min [facility] on 12/04/22 CBC + DIFF COMP METABOLIC PANEL C-REACTIVE PROTEIN (CRP) SED RATE WESTERGREN Return in about 3 months (around 03/06/2023) for RA, Dr. Disla, keep f/u appointment, no additional. Narayan Gomez PA-C documented in this encounter [facility] 09-02-2022 Note HNO ID: [id number] Author: Maurisio Disla MD Service: ? Author Type: Physician Type: Progress Notes Filed: 09/02/2022 2:54 PM Note Text: Subjective A phone visit telemedicine visit was substituted for a protocol-required in-person visit because of the recent COVID-19 pandemic which has caused disruption in normal operations spanning access to care, medical treatment, medications, etc. This phone or virtual visit was conducted to prevent exposure of the patient to the virus and to optimize the patient's safety that comes with inherent limitations of a phone encounter. I have communicated my name and active licensure. The patient's identity and physical location were verified at the time of this visit. Either the patient or their legal healthcare representative has been informed of the risks and benefits of -- and alternatives to -- treatment through a remote evaluation and consents to proceed with the evaluation remotely. HPI: 52-year-old pleasant lady with history of seronegative rheumatoid diagnosed in 2017-on recent blood work has positive anti-CCP of 46 is here for evaluation. She was on prednisone 10 mg daily at her last visit in January 2022 but has weaned off prednisone at her last visit but was symptomatic and was given prednisone 5 mg daily for a few more weeks. She is currently not on prednisone. She was recommended Rinvoq but approved for IPX for insurance and has been on it for the next 2 weeks. Her pain is 7/10 in the wrists, neck, back and hips. She has some swelling in the wrist and ankles. Stiffness is many hours in the morning. X-rays hips in April 2022 were normal, low back showed degenerative arthritis and SI joints showed early osteoarthritis. She was given Humira and methotrexate in the past by previous vp publisher development but did not notice any improvement with Humira and had some adverse effects of methotrexate? She was also given Plaquenil but had palpitations? She has not been on any treatment for rheumatoid arthritis for over a year. She had been on prednisone 10 mg daily from March 2021 up until her last visit January 2022. She has diabetes-recent hemoglobin A1c was 6.4. She is on gabapentin and Ambien. New patient visit January 2022 Mj Cole is a 51 year old female who presents with history of seronegative rheumatoid arthritis diagnosed in 2017 by her previous vp publisher development, long-term prednisone use is here for evaluation. She is currently on prednisone 10 mg daily and has been on that dose since March 2021. She has been off her rheumatoid arthritis medications for a year. She was on Humira and methotrexate 6 tablets weekly? For approximately a year in the past. She felt like they did not work as well for her. They may have helped 30% and she did notice some increased pain prior to her next Humira dose. She stopped seeing her previous vp publisher development because of change in insurance and had to go off medications. While on Humira and methotrexate she was also on prednisone 5 mg daily. She is had difficulty weaning off prednisone in the past with increased pain. She was on tramadol in the past. She has type 2 diabetes and neuropathy and is on gabapentin 600 mg daily. She has a history of palpitations with Plaquenil. She gives history of photosensitivity and hair loss with methotrexate. She has history of kidney stones. Her pain is 5/10 in her hands, wrists, feet, ankles, low back and hips. She has some swelling in her ankles and feet. Stiffness in the morning is 2 hours. 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 Neuropathy Seronegative rheumatoid arthritis (HCC) PAST SURGICAL HISTORY Procedure Laterality Date SECTION HX x3 HYSTEROSCOPY,W/ENDOMETRIAL ABLATION KIDNEY STONE SURGERY HX 05/01/2021 Cystoscopy, pyelograms, bilateral ureteroscopy (semi-rigid and flexible), laser lithotripsy, left ureteral stent removal, right ureteral stent exchange ([id number]) LIGATE FALLOPIAN TUBE 2001 REDUCTION OF LARGE BREAST Health Maintenance Procedures HEPATITIS B(1 of 3 - 3-dose series) Never done PNEUMOCOCCAL(1 - PCV) Never done HIV SCREENING Never done DTAP,TDAP,TD(1 - Tdap) Never done SHINGRIX VACCINE(1 of 2) Never done MAMMOGRAM Never done LIPID SCREEN Never done COLORECTAL CANCER SCREENING Never done COVID-19 VACCINE(2 - Chela risk series) due on 06/21/2021 PAP TESTING due on 09/26/2021 HPV TESTING due on 09/26/2021 DEPRESSION ASSESSMENT Never done Discussed health maintenance, including regular aerobic exercise, low fat diet, and periodic exams. Health Maintenance Immunizations Given Immunizations: Immunization History Administered Date(s) Administered COVID-19 vaccine (CHELA) 05/24/2021 Current Outpatient Medications Medication Sig XELJANZ 5 mg tablet TAKE 1 TABLET TWICE A (more content not included)... [facility] 05-02-2022 Note HNO ID: [id number] Author: RT Ana(R) Service: Radiology Author Type: Technologist Type: Progress Notes Filed: 05/02/2022 11:00 AM Note Text: Radiology Service Progress Note PATIENT NAME: Mj Cole DATE OF SERVICE: May 02, 2022 TIME: 11:00 AM PATIENT IDENTITY VERIFICATION COMPLETED USING TWO (2) IDENTIFIERS: Name and Date of confirmed by patient verbally. FALL SCREENING: Has the patient had 2 falls in the last year or 1 fall with injury or currently using an Ambulatory Assistive Device (Walker, Cane, Wheelchair, Crutches, etc.)? No PATIENT GENDER DATA: Female. status: : No status: NO. PATIENT RELEVANT IMPLANT DATA REVIEWED: Not Applicable RADIOLOGY DEPARTMENT: General X-ray: Exam(s) Completed: Spine X-Ray(s): Lumbar AP / LAT / L5-S1 Pelvis X-Ray: Pelvis with Hip Bilateral and sacroiliac joints PERIPHERAL IV DATA: Not applicable SIGNED BY: RT Ana(R) May 02, 2022 11:00 AM [facility] 05-02-2022 Note HNO ID: [id number] Author: Maurisio Disla MD Service: ? Author Type: Physician Type: Progress Notes Filed: 05/02/2022 10:48 AM Note Text: Subjective HPI: New patient follow-up 51-year-old pleasant lady with history of seronegative rheumatoid diagnosed in 2017-on recent blood work has positive anti-CCP of 46 is here for evaluation. She was on prednisone 10 mg daily at her last visit in January 2022 but has weaned off prednisone and has not taken any recently. She did notice increased pain all over-pain today is 8/10 especially hips, back, hands feet and ankles. She has swelling in the ankles. Stiffness is 2 hours in the morning. She is also had generalized weakness, some syncopal episodes and is scheduled to see PCP. She was given Humira and methotrexate in the past by previous vp publisher development but did not notice any improvement with Humira and had some adverse effects of methotrexate? She was also given Plaquenil but had palpitations? She has not been on any treatment for rheumatoid arthritis for over a year. She had been on prednisone 10 mg daily from March 2021 up until her last visit January 2022. She has diabetes-recent hemoglobin A1c was 6.4. She is on gabapentin and Ambien. New patient visit January 2022 Mj Cole is a 51 year old female who presents with history of seronegative rheumatoid arthritis diagnosed in 2017 by her previous vp publisher development, long-term prednisone use is here for evaluation. She is currently on prednisone 10 mg daily and has been on that dose since March 2021. She has been off her rheumatoid arthritis medications for a year. She was on Humira and methotrexate 6 tablets weekly? For approximately a year in the past. She felt like they did not work as well for her. They may have helped 30% and she did notice some increased pain prior to her next Humira dose. She stopped seeing her previous vp publisher development because of change in insurance and had to go off medications. While on Humira and methotrexate she was also on prednisone 5 mg daily. She is had difficulty weaning off prednisone in the past with increased pain. She was on tramadol in the past. She has type 2 diabetes and neuropathy and is on gabapentin 600 mg daily. She has a history of palpitations with Plaquenil. She gives history of photosensitivity and hair loss with methotrexate. She has history of kidney stones. Her pain is 5/10 in her hands, wrists, feet, ankles, low back and hips. She has some swelling in her ankles and feet. Stiffness in the morning is 2 hours. PAST MEDICAL HISTORY Diagnosis Date Diabetes mellitus type 2 (HCC) History of migraine headaches Insomnia Kidney stones [facility] systemic steroid user Neuropathy Seronegative rheumatoid arthritis (HCC) PAST SURGICAL HISTORY Procedure Laterality Date SECTION HX x3 HYSTEROSCOPY,W/ENDOMETRIAL ABLATION KIDNEY STONE SURGERY HX 05/01/2021 Cystoscopy, pyelograms, bilateral ureteroscopy (semi-rigid and flexible), laser lithotripsy, left ureteral stent removal, right ureteral stent exchange ([id number]) LIGATE FALLOPIAN TUBE 2002 REDUCTION OF LARGE BREAST Health Maintenance Procedures HEPATITIS B(1 of 3 - 3-dose series) Never done HIV SCREENING Never done DTAP,TDAP,TD(1 - Tdap) Never done MAMMOGRAM Never done LIPID SCREEN Never done COLORECTAL CANCER SCREENING Never done COVID-19 VACCINE(2 - Booster for Chela series) due on 07/19/2021 PAP TESTING due on 09/26/2021 HPV TESTING due on 09/26/2021 DEPRESSION ASSESSMENT Never done Discussed health maintenance, including regular aerobic exercise, low fat diet, and periodic exams. Health Maintenance Immunizations Given Immunizations: Immunization History Administered Date(s) Administered COVID-19 vaccine (CHELA) 05/24/2021 Current Outpatient Medications Medication Sig upadacitinib (RINVOQ) Tb24 tablet Take 1 tablet (15 mg) by mouth once daily. Swallow whole; DO NOT crush, chew, or open. predniSONE (DELTASONE) 5 mg tablet Take 1 tablet by mouth once daily. gabapentin (NEURONTIN) 600 mg tablet Take 600 mg by mouth three times daily. insulin detemir (LEVEMIR FLEXTOUCH U-100 INSULN SUBCUTANEOUS) LORazepam (ATIVAN) 0.5 mg aspirin 81 mg cap Take 81 mg by mouth once daily. oxybutynin (DITROPAN) 5 mg tablet Take 1 tablet by mouth twice daily as needed (bladder spasms). (Patient not taking: No sig reported) gabapentin (NEURONTIN) 800 mg tablet Take 800 mg by mouth three times daily. (Patient not taking: Reported on 01/30/2022) tiZANidine HCl (ZANAFLEX) 4 mg capsule Take 4 mg by mouth three times daily. sertraline (ZOLOFT) 100 mg tablet Take 200 mg by mouth once daily. rizatriptan (MAXALT) 10 mg tablet Take 10 mg by mouth as needed. May repeat in 2 hours if needed PROAIR HFA 90 mcg/actuation inhaler Inhale 1 Puff as instructed every 4 hours as needed. metoprolol succinate ER (TOPROL XL) 50 mg 24 hr tablet Take 100 mg (more content not included)... [facility] 05-02-2022 History of Present illness Narrative Radiology Service Progress Note PATIENT NAME: Mj Cole DATE OF SERVICE: May 02, 2022 TIME: 11:00 AM PATIENT IDENTITY VERIFICATION COMPLETED USING TWO (2) IDENTIFIERS: Name and Date of confirmed by patient verbally. FALL SCREENING: Has the patient had 2 falls in the last year or 1 fall with injury or currently using an Ambulatory Assistive Device (Walker, Cane, Wheelchair, Crutches, etc.)? No PATIENT GENDER DATA: Female. status: : No status: NO. PATIENT RELEVANT IMPLANT DATA REVIEWED: Not Applicable RADIOLOGY DEPARTMENT: General X-ray: Exam(s) Completed: Spine X-Ray(s): Lumbar AP / LAT / L5-S1 Pelvis X-Ray: Pelvis with Hip Bilateral and sacroiliac joints PERIPHERAL IV DATA: Not applicable SIGNED BY: RT Ana(R) May 02, 2022 11:00 AM documented in this encounter [facility] 05-02-2022 Miscellaneous Notes At checkout per Dr Disla: Rinvoq info, prior auth, enter pharmacy [facility] [place] documented in this encounter [facility] 05-02-2022 History of Present illness Narrative Subjective HPI: New patient follow-up 51-year-old pleasant lady with history of seronegative rheumatoid diagnosed in 2017-on recent blood work has positive anti-CCP of 46 is here for evaluation. She was on prednisone 10 mg daily at her last visit in January 2022 but has weaned off prednisone and has not taken any recently. She did notice increased pain all over-pain today is 8/10 especially hips, back, hands feet and ankles. She has swelling in the ankles. Stiffness is 2 hours in the morning. She is also had generalized weakness, some syncopal episodes and is scheduled to see PCP. She was given Humira and methotrexate in the past by previous vp publisher development but did not notice any improvement with Humira and had some adverse effects of methotrexate? She was also given Plaquenil but had palpitations? She has not been on any treatment for rheumatoid arthritis for over a year. She had been on prednisone 10 mg daily from March 2021 up until her last visit January 2022. She has diabetes-recent hemoglobin A1c was 6.4. She is on gabapentin and Ambien. New patient visit January 2022 Mj Cole is a 51 year old female who presents with history of seronegative rheumatoid arthritis diagnosed in 2017 by her previous vp publisher development, long-term prednisone use is here for evaluation. She is currently on prednisone 10 mg daily and has been on that dose since March 2021. She has been off her rheumatoid arthritis medications for a year. She was on Humira and methotrexate 6 tablets weekly? For approximately a year in the past. She felt like they did not work as well for her. They may have helped 30% and she did notice some increased pain prior to her next Humira dose. She stopped seeing her previous vp publisher development because of change in insurance and had to go off medications. While on Humira and methotrexate she was also on prednisone 5 mg daily. She is had difficulty weaning off prednisone in the past with increased pain. She was on tramadol in the past. She has type 2 diabetes and neuropathy and is on gabapentin 600 mg daily. She has a history of palpitations with Plaquenil. She gives history of photosensitivity and hair loss with methotrexate. She has history of kidney stones. Her pain is 5/10 in her hands, wrists, feet, ankles, low back and hips. She has some swelling in her ankles and feet. Stiffness in the morning is 2 hours. PAST MEDICAL HISTORY Diagnosis Date Diabetes mellitus type 2 (HCC) History of migraine headaches Insomnia Kidney stones [facility] systemic steroid user Neuropathy Seronegative rheumatoid arthritis (HCC) PAST SURGICAL HISTORY Procedure Laterality Date SECTION HX x3 HYSTEROSCOPY,W/ENDOMETRIAL ABLATION KIDNEY STONE SURGERY HX 05/01/2021 Cystoscopy, pyelograms, bilateral ureteroscopy (semi-rigid and flexible), laser lithotripsy, left ureteral stent removal, right ureteral stent exchange ([id number]) LIGATE FALLOPIAN TUBE 2001 REDUCTION OF LARGE BREAST Health Maintenance Procedures HEPATITIS B(1 of 3 - 3-dose series) Never done HIV SCREENING Never done DTAP,TDAP,TD(1 - Tdap) Never done MAMMOGRAM Never done LIPID SCREEN Never done COLORECTAL CANCER SCREENING Never done COVID-19 VACCINE(2 - Booster for Chela series) due on 07/19/2021 PAP TESTING due on 09/26/2021 HPV TESTING due on 09/26/2021 DEPRESSION ASSESSMENT Never done Discussed health maintenance, including regular aerobic exercise, low fat diet, and periodic exams. Health Maintenance Immunizations Given Immunizations: Immunization History Administered Date(s) Administered COVID-19 vaccine (CHELA) 05/24/2021 Current Outpatient Medications Medication Sig upadacitinib (RINVOQ) Tb24 tablet Take 1 tablet (15 mg) by mouth once daily. Swallow whole; DO NOT crush, chew, or open. predniSONE (DELTASONE) 5 mg tablet Take 1 tablet by mouth once daily. gabapentin (NEURONTIN) 600 mg tablet Take 600 mg by mouth three times daily. insulin detemir (LEVEMIR FLEXTOUCH U-100 INSULN SUBCUTANEOUS) LORazepam (ATIVAN) 0.5 mg aspirin 81 mg cap Take 81 mg by mouth once daily. oxybutynin (DITROPAN) 5 mg tablet Take 1 tablet by mouth twice daily as needed (bladder spasms). (Patient not taking: No sig reported) gabapentin (NEURONTIN) 800 mg tablet Take 800 mg by mouth three times daily. (Patient not taking: Reported on 01/30/2022) tiZANidine HCl (ZANAFLEX) 4 mg capsule Take 4 mg by mouth three times daily. sertraline (ZOLOFT) 100 mg tablet Take 200 mg by mouth once daily. rizatriptan (MAXALT) 10 mg tablet Take 10 mg by mouth as needed. May repeat in 2 hours if needed PROAIR HFA 90 mcg/actuation inhaler Inhale 1 Puff as instructed every 4 hours as needed. metoprolol succinate ER (TOPROL XL) 50 mg 24 hr tablet Take 100 mg by mouth once daily. Zolpidem (AMBIEN CR) 12.5 mg CR tablet Take 12.5 mg by mouth at bedtime as needed. No current facility-administered medications for this visit. ALLERGIES Allergen Reactions Sulfa (Sulfonamide * Rash, Hives FAMILY HISTORY Problem Relation Age of Onset Heart Mother Hypertension Mother Thyroid Mother Hypo Heart Father Hypertension Father Hypertension Brother other (Fibromyalgia) Brother other (rheumatoid arthritis) Paternal Grandmother Social History Tobacco Use Smoking status: Never Smokeless tobacco: Never Substance Use Topics Alcohol use: Yes Comment: Social Drug use: No History Review: I have reviewed and modified as needed, the following during this visit: Allergies, Past Medical History, Past Surgical History, Past Family History, Past Social History. Review of Systems CONSTITUTIONAL: Recent Weight Gain: No Recent Weight Loss: No Fatigue: No Weakness: Yes Fever: No EYES: Pain: No Redness: No Loss of vision: No Double or blurred vision: No Dryness: Yes Feels like something in eye: No Itching eyes: No [id number]: Ringing in ears: Yes Loss of hearing: Yes Nosebleeds: No Loss of smell: No Dryness in nose: No Runny Nose: No Sore tongue: No Bleeding gums: No Sores in mouth: No Loss of taste: No Dryness of mouth: Yes Frequent sore throats: No Hoarseness: No Difficulty in swallowing: No CARDIOVASCULAR: Pain in chest: No Irregular heart beat: No Sudden changes in heart beat: No High blood pressure: No Heart murmurs: No RESPIRATORY: Shortness of breath: No Difficulty in breathing at night: No Swollen legs or feet: No Cough: No Cough of blood: No Wheezing (asthma): No GASTROINTESTINAL: Nausea: No Vomiting of blood or coffee ground material: No Stomach pain relieved by food or milk: No Jaundice: No Increasing constipation: Yes Persistent diarrhea: No Blood in stools: No Black stools: No Heartburn: No GENITOURINARY: Difficult urination: No Pain or burning on urination: No Blood in urine: No Cloudy, smoky urine: No Pus in urine: No Discharge from penis/vagina: No Getting up at night to pass urine: No Vaginal dryness: No Rash/ulcers: No Sexual difficulties: No Prostate trouble: No MUSCULOSKELETAL: Morning Stiffness: Yes, Joint Pain: Yes, Muscle Weakness: Yes, and Joint Swelling: Yes INTEGUMENTARY: Easy Bruising: Yes Redness: No Rash: No Hives: No Sun sensitive: No Tightness: No Nodules/bumps: No Hair loss: No Color changes of hands or feet in the cold: No NEUROLOGICAL SYSTEM: Headaches: Yes Dizziness: No Fainting: No Muscle spasm: Yes Loss of consciousness: No Sensitivity or pain of hands and/or feet: Yes Memory loss: No Night sweats: No PSYCHIATRIC: Excessive worries: No Anxiety: Yes Easily losing temper: No Depression: Yes Agitation: No Difficulty falling asleep: Yes Difficulty staying asleep: Yes ENDOCRINE: Excessive thirst: No HEMATOLOGIC/LYMPHATIC: Swollen glands: No Tender glands: No Anemia: No Bleeding tendency: No Transfusion/ when: No ALLERGIC/IMMUNOLOGIC; Frequent sneezing: No Increased susceptibility to infection: No BP 154/100 Pulse 113 Temp 36.8 C (98.3 F) Ht 156.2 cm (5' 1.5 ) Wt 87.1 kg (192 lb) LMP (LMP Unknown) BMI 35.69 kg/m Physical Exam GENERAL: Well appearing, alert, comfortable, in no acute distress, well-hydrated, well nourished. HEENT: Negative for external ears normal. Canals are clear. Both TMs visualized and are normal. Eye Exam normal. External nose normal, no nasal ulcer or throat ulcer. NECK: NECK Supple, no adenopathy; thyroid symmetric, normal size, no bruits CARDIAC: regular rate and rhythm, No murmur asculated., and Equal peripheral pulses RESPIRATORY: Lungs clear to auscultation. No wheezing, rhonchi, rales VASCULAR: RRR without murmur, gallop, or rubs. No ectopy. ABDOMEN: Soft, non tender. BS active. No masses or organomegaly. LYMPHATIC: Negative for adenopathy in the neck, axillae, groin, supraclavicular and auricular. NEURO: Motor and sensory exam normal MOTOR: Normal; including tone, gait, stressed gait, power and coordination. SKIN: Negative for alopecia, skin rash, malar rash, skin lesion, skin ulcer, pits, thickening, color changes, telangiectasias, nail changes, nail ridging, nail pitting, onycholysis MUSCULOSKELETAL: Mild tenderness both wrists Slight fullness right second third MCPs? Impingement both shoulders Tenderness bilateral trochanteric bursa with impingement both hips Tenderness both ankles Tenderness of MTPs bilaterally Tenderness lower lumbar spine and both SI joints Office visit January 2022 tenderness right wrist Tenderness right trochanteric bursa Lab Results: January 2022 Uric acid 4.1 CRP 0.4 Vitamin D 79.5 Hepatitis panel negative, rheumatoid factor negative, anti-CCP 46, SHAJI negative TSH 3.090 Vitamin D75.5 CBC normal ESR 2021January 2022 Creatinine 0.96 Liver enzyme normal Glucose 199 04/12/2021 ALT 17 04/11/2021 WBC 7.02 04/12/2021 Hemoglobin 11.9 04/12/2021 Platelet Count 279 04/12/2021 Serology: January 2022Hepatitis panel negative, rheumatoid factor negative, anti-CCP 46, SHAJI negative Office note November 2019 from previous rheumatologistNegative rheumatoid factor, negative anti-CCP, negative HLA-B27 and positive SHAJI. QUAN panel negative, double-stranded QUAN negative, C3 and C4 normal Radiology: X-rays bilateral feet January 2022 She left foot: Mild osteoarthritic changes. No evidence of bony erosions or soft tissue calcifications. No evidence of acute fracture or dislocation. Right foot: Mild osteoarthritic changes. Small calcaneal enthesophytes. No evidence of bony erosion or soft tissue calcifications radiographically. No evidence of acute fracture or dislocation. X-rays bilateral hands January 2022 Left hand: Minimal osteoarthritic changes. No evidence of osseous erosion or soft tissue calcifications. No evidence of acute fracture or dislocation. Right hand: Minimal osteoarthritic changes. No evidence of osseous erosion or soft tissue calcifications. No evidence of acute fracture or dislocation. Assessment (M06.00) Seronegative rheumatoid arthritis (HCC) (primary encounter diagnosis) (R53.81, R53.83) Malaise and fatigue (M25.50) 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, multiple sites (Z79.52) [facility] current use of systemic steroids 51-year-old pleasant lady with 1. Anti-CCP positive rheumatoid arthritis-diagnosed with seronegative rheumatoid in the past by previous vp publisher development-failed methotrexate, Plaquenil and Humira. Has weaned off prednisone 10 mg daily since last visit January 2022. Has generalized pain, moderate synovitis? 2. Long-term prednisone therapy-has been on prednisone 10 mg daily since March 2021 and prior to that was on prednisone 5 mg daily since 2017? Weaned off prednisone January 2022 with increased pain 3. High-risk medication-on methotrexate 6 tablets weekly in the past and Humira subcu every other week-on treatment for a year before with mild response? She describes some adverse effects of methotrexate-photosensitivity and hair loss. History of Plaquenil use but had palpitations. #4 diabetes and diabetic neuropathy-on treatment 5. Fatigue-symptomatic #6 low back pain and hip pain-increase symptoms Plan Has failed Humira and methotrexate/Plaquenil in the past Long discussion on rheumatoid arthritis and management On recent blood work anti-CCP was positive at 48 Recommend Rinvoq 15 mg daily-risks and benefits explained. Obtain prior authorization Check TB QuantiFERON She is asking about treatment for acute symptoms and wants to go back on prednisone-can do prednisone 5 mg daily for around 4 weeks, try to discontinue after starting Rinvoq-Rinvoq is a fast acting medication Continue management of diabetes She continues to be on gabapentin and Ambien Increased pain in the hips-has trochanteric bursitis on exam. Obtain x-rays of the hips, SI joints and lower lumbar spine. HLA-B27 in the past negative Follow-up with PCP for recent syncopal episodes Follow-up in 4 to 6 weeks with physician trading assistant, follow-up with me in 4 months During this patients visit I have spent more then 50% Face to Face time out of 40 mins in counseling regarding treatment options, medications, test results, and coordinating care and coordinating care This note was partially generated using E[employer] voice recognition system, and there may be some incorrect words, spellings, and punctuation that were not noted in checking the note before saving. Office Visit on 05/02/22 XR SACROILIAC JOINTS 2V AP PELVIS/FERGUESON XR HIP BILATERAL 5V PEL/AP/LAT EACH HIP XR LUMBAR LIMITED 2V AP/LAT BLOOD TB SCREEN, INCUBATED Return in about 4 months (around 08/30/2022), or 6 weeks Narayan- before leave. Maurisio Disla MD documented in this encounter [facility] 04-05-2022 Miscellaneous Notes This patient gave consent to this Medical Advice Message and is aware that it may result in a bill to their insurance, as well as the possibility of receiving a bill for a copay and/or deductible. They are an established patient, but are not seeking information exclusively about a problem treated during an in person or video visit in the last seven days. I did not recommend an in person or video visit within seven days of my reply. See the [facility] message reply for my assessment and plan. I spent a total of 5 minutes reviewing the patient's prior medical records and current request for medical advice, prescribing medications or ordering tests (if applicable), replying to the patient, and documenting the encounter. documented in this encounter [facility] 01-30-2022 History of Present illness Narrative Radiology Service Progress Note PATIENT NAME: Mj Cole DATE OF SERVICE: January 30, 2022 TIME: 1:45 PM PATIENT IDENTITY VERIFICATION COMPLETED USING TWO (2) IDENTIFIERS: Name and Date of confirmed by patient verbally and Name and Date of confirmed by identification band. FALL SCREENING: Has the patient had 2 falls in the last year or 1 fall with injury or currently using an Ambulatory Assistive Device (Walker, Cane, Wheelchair, Crutches, etc.)? No PATIENT GENDER DATA: Female. status: : No status: NO. PATIENT RELEVANT IMPLANT DATA REVIEWED: Not Applicable RADIOLOGY DEPARTMENT: General X-ray: Exam(s) Completed: Lower Extremity X-Ray(s): Feet, Bilateral Upper Extremity X-Ray(s): Hand, bilateral PERIPHERAL IV DATA: Not applicable SIGNED BY: RT Paulo(R) January 30, 2022 1:45 PM documented in this encounter [facility] 01-30-2022 History of Present illness Narrative Subjective HPI: Mj Cole is a 51 year old female who presents with history of seronegative rheumatoid arthritis diagnosed in 2017 by her previous vp publisher development, long-term prednisone use is here for evaluation. She is currently on prednisone 10 mg daily and has been on that dose since March 2021. She has been off her rheumatoid arthritis medications for a year. She was on Humira and methotrexate 6 tablets weekly? For approximately a year in the past. She felt like they did not work as well for her. They may have helped 30% and she did notice some increased pain prior to her next Humira dose. She stopped seeing her previous vp publisher development because of change in insurance and had to go off medications. While on Humira and methotrexate she was also on prednisone 5 mg daily. She is had difficulty weaning off prednisone in the past with increased pain. She was on tramadol in the past. She has type 2 diabetes and neuropathy and is on gabapentin 600 mg daily. She has a history of palpitations with Plaquenil. She gives history of photosensitivity and hair loss with methotrexate. She has history of kidney stones. Her pain is 5/10 in her hands, wrists, feet, ankles, low back and hips. She has some swelling in her ankles and feet. Stiffness in the morning is 2 hours. PAST MEDICAL HISTORY Diagnosis Date Diabetes mellitus type 2 (HCC) History of migraine headaches Insomnia Kidney stones [facility] systemic steroid user Neuropathy Seronegative rheumatoid arthritis (HCC) PAST SURGICAL HISTORY Procedure Laterality Date SECTION HX x3 HYSTEROSCOPY,W/ENDOMETRIAL ABLATION KIDNEY STONE SURGERY HX 05/01/2021 Cystoscopy, pyelograms, bilateral ureteroscopy (semi-rigid and flexible), laser lithotripsy, left ureteral stent removal, right ureteral stent exchange ([id number]) LIGATE FALLOPIAN TUBE 2001 REDUCTION OF LARGE BREAST Health Maintenance Procedures HEPATITIS B(1 of 3 - 3-dose series) Never done HEPATITIS C SCREENING Never done HIV SCREENING Never done DTAP,TDAP,TD(1 - Tdap) Never done MAMMOGRAM Never done LIPID SCREEN Never done COLORECTAL CANCER SCREENING Never done DEPRESSION ASSESSMENT Never done COVID-19 VACCINE(2 - Booster for Chela series) due on 07/19/2021 PAP TESTING due on 09/26/2021 HPV TESTING due on 09/26/2021 INFLUENZA(1) due on 12/13/2021 Discussed health maintenance, including regular aerobic exercise, low fat diet, and periodic exams. Health Maintenance Immunizations Given Immunizations: Immunization History Administered Date(s) Administered COVID-19 vaccine (CHELA) 05/24/2021 Current Outpatient Medications Medication Sig gabapentin (NEURONTIN) 600 mg tablet Take 600 mg by mouth three times daily. insulin detemir (LEVEMIR FLEXTOUCH U-100 INSULN SUBCUTANEOUS) LORazepam (ATIVAN) 0.5 mg aspirin 81 mg cap Take 81 mg by mouth once daily. tiZANidine HCl (ZANAFLEX) 4 mg capsule Take 4 mg by mouth three times daily. sertraline (ZOLOFT) 100 mg tablet Take 200 mg by mouth once daily. rizatriptan (MAXALT) 10 mg tablet Take 10 mg by mouth as needed. May repeat in 2 hours if needed predniSONE (DELTASONE) 10 mg tablet Take 10 mg by mouth once daily. PROAIR HFA 90 mcg/actuation inhaler Inhale 1 Puff as instructed every 4 hours as needed. metoprolol succinate ER (TOPROL XL) 50 mg 24 hr tablet Take 100 mg by mouth once daily. Zolpidem (AMBIEN CR) 12.5 mg CR tablet Take 12.5 mg by mouth at bedtime as needed. oxybutynin (DITROPAN) 5 mg tablet Take 1 tablet by mouth twice daily as needed (bladder spasms). (Patient not taking: No sig reported) gabapentin (NEURONTIN) 800 mg tablet Take 800 mg by mouth three times daily. (Patient not taking: Reported on 01/30/2022) No current facility-administered medications for this visit. ALLERGIES Allergen Reactions Sulfa (Sulfonamide * Rash, Hives FAMILY HISTORY Problem Relation Age of Onset Heart Mother Hypertension Mother Thyroid Mother Hypo Heart Father Hypertension Father Hypertension Brother other (Fibromyalgia) Brother other (rheumatoid arthritis) Paternal Grandmother Social History Tobacco Use Smoking status: Never Smokeless tobacco: Never Substance Use Topics Alcohol use: Yes Comment: Social Drug use: No History Review: I have reviewed and modified as needed, the following during this visit: Allergies, Past Medical History, Past Surgical History, Past Family History, Past Social History. Review of Systems CONSTITUTIONAL: Recent Weight Gain: No Recent Weight Loss: No Fatigue: No Weakness: Yes Fever: No EYES: Pain: No Redness: No Loss of vision: No Double or blurred vision: No Dryness: Yes Feels like something in eye: No Itching eyes: No [id number]-THROAT: Ringing in ears: Yes Loss of hearing: Yes Nosebleeds: No Loss of smell: No Dryness in nose: No Runny Nose: No Sore tongue: No Bleeding gums: No Sores in mouth: No Loss of taste: No Dryness of mouth: Yes Frequent sore throats: No Hoarseness: No Difficulty in swallowing: No CARDIOVASCULAR: Pain in chest: No Irregular heart beat: No Sudden changes in heart beat: No High blood pressure: No Heart murmurs: No RESPIRATORY: Shortness of breath: No Difficulty in breathing at night: No Swollen legs or feet: No Cough: No Cough of blood: No Wheezing (asthma): No GASTROINTESTINAL: Nausea: No Vomiting of blood or coffee ground material: No Stomach pain relieved by food or milk: No Jaundice: No Increasing constipation: Yes Persistent diarrhea: No Blood in stools: No Black stools: No Heartburn: No GENITOURINARY: Difficult urination: No Pain or burning on urination: No Blood in urine: No Cloudy, smoky urine: No Pus in urine: No Discharge from penis/vagina: No Getting up at night to pass urine: No Vaginal dryness: No Rash/ulcers: No Sexual difficulties: No Prostate trouble: No MUSCULOSKELETAL: Morning Stiffness: Yes, Joint Pain: Yes, Muscle Weakness: Yes, and Joint Swelling: Yes INTEGUMENTARY: Easy Bruising: Yes Redness: No Rash: No Hives: No Sun sensitive: No Tightness: No Nodules/bumps: No Hair loss: No Color changes of hands or feet in the cold: No NEUROLOGICAL SYSTEM: Headaches: Yes Dizziness: No Fainting: No Muscle spasm: Yes Loss of consciousness: No Sensitivity or pain of hands and/or feet: Yes Memory loss: No Night sweats: No PSYCHIATRIC: Excessive worries: No Anxiety: Yes Easily losing temper: No Depression: Yes Agitation: No Difficulty falling asleep: Yes Difficulty staying asleep: Yes ENDOCRINE: Excessive thirst: No HEMATOLOGIC/LYMPHATIC: Swollen glands: No Tender glands: No Anemia: No Bleeding tendency: No Transfusion/ when: No ALLERGIC/IMMUNOLOGIC; Frequent sneezing: No Increased susceptibility to infection: No Ht 156.2 cm (5' 1.5 ) Wt 88.5 kg (195 lb) LMP (LMP Unknown) BMI 36.25 kg/m Physical Exam GENERAL: Well appearing, alert, comfortable, in no acute distress, well-hydrated, well nourished. HEENT: Negative for external ears normal. Canals are clear. Both TMs visualized and are normal. Eye Exam normal. External nose normal, no nasal ulcer or throat ulcer. NECK: NECK Supple, no adenopathy; thyroid symmetric, normal size, no bruits CARDIAC: regular rate and rhythm, No murmur asculated., and Equal peripheral pulses RESPIRATORY: Lungs clear to auscultation. No wheezing, rhonchi, rales VASCULAR: RRR without murmur, gallop, or rubs. No ectopy. ABDOMEN: Soft, non tender. BS active. No masses or organomegaly. LYMPHATIC: Negative for adenopathy in the neck, axillae, groin, supraclavicular and auricular. NEURO: Motor and sensory exam normal MOTOR: Normal; including tone, gait, stressed gait, power and coordination. SKIN: Negative for alopecia, skin rash, malar rash, skin lesion, skin ulcer, pits, thickening, color changes, telangiectasias, nail changes, nail ridging, nail pitting, onycholysis MUSCULOSKELETAL: Tenderness right wrist Tenderness right trochanteric bursa Lab Results: January 2022 Creatinine 0.96 Liver enzyme normal Glucose 199 04/12/2021 ALT 17 04/11/2021 WBC 7.02 04/12/2021 Hemoglobin 11.9 04/12/2021 Platelet Count 279 04/12/2021 Serology: None available Radiology: None available Assessment (M06.00) Seronegative rheumatoid arthritis (HCC) (primary encounter diagnosis) (M25.50) 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, multiple sites (R53.81, R53.83) 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 History of seronegative rheumatoid arthritis-no significant synovitis on exam. However on prednisone 10 mg daily. Not on any DMARDs at this time 2. Long-term prednisone therapy-has been on prednisone 10 mg daily since March 2021 and prior to that was on prednisone 5 mg daily since 2017? 3. High-risk medication-on methotrexate 6 tablets weekly in the past and Humira subcu every other week-on treatment for a year before with mild response? She describes some adverse effects of methotrexate-photosensitivity and hair loss. History of Plaquenil use but had palpitations. #4 diabetes and diabetic neuropathy-on treatment 5. Fatigue-symptomatic Plan No active synovitis on exam today, however on prednisone 10 mg daily Gives history of seronegative rheumatoid arthritis-obtain notes from previous vp publisher development Gives history of being on Humira and methotrexate but did not notice significant improvement and believes she had some problems with taking methotrexate-hair loss and photosensitivity. Has been off treatment for around a year. Obtain x-rays of the hands and feet Check arthritis panel and hepatitis panel Confirm diagnosis of seronegative rheumatoid arthritis first. If evaluation consistent with seronegative rheumatoid will decide on treatment-if no clear response to Humira and methotrexate the past may consider different treatments Check vitamin D level Check TSH Continue management of diabetes Try to taper prednisone dose down to 5 mg daily and then gradually off prednisone if possible On gabapentin through PCP Old records reviewed Follow-up in 6 weeks This note was partially generated using [employer] voice recognition system, and there may be some incorrect words, spellings, and punctuation that were not noted in checking the note before saving. Office Visit on 01/30/22 XR HAND GENERAL 3V PA/LAT/OBL LEFT XR HAND GENERAL 3V PA/LAT/OBL RIGHT XR FOOT GENERAL 3V AP/LAT/OBL RIGHT XR FOOT GENERAL 3V AP/LAT/OBL LEFT HEP B SURF AG SCRN HEP B SURF AB QUANT HEP C AB IA W/CONF SCRN HEP B CORE AB TOTAL C-REACTIVE PROTEIN (CRP) CCP ANTIBODY IGG ANTI-STREPTOLYSIN AB URIC ACID BLOOD RHEUMATOID FACTOR BL SHAJI BY IFA WITH REFLEX SED RATE WESTERGREN CBC + DIFF VITAMIN D 25 HYDROXY TSH BLD Return in about 6 weeks (around 03/13/2022). Maurisio Disla MD documented in this encounter [facility] 07-13-2021 History of Present illness Narrative ESTABLISHED PATIENT OFFICE VISIT HISTORY OF PRESENT ILLNESS Mj Cole is a 51 year old female with h/o kidney stones s/p left laser litho 05/01/21 Dr. Mckeon who presents today with c/o left abdominal and flank pain x 1 week. In March she was found to have jeremy ureteral stones and underwent surgery x 2 She c/o nausea no emesis. No fever or chills. No gross hematuria. She has just felt off for the last week. UA is negative today. Last troy in April was normal. Will check CT - discussed if symptoms wrsen to be seen in ED Follow up pending results LAB RESULTS Creatinine Date Value Ref Range Status 04/12/2021 0.71 0.58 - 0.96 mg/dL Final No results found for: PSA Color (no units) Date Value 04/11/2021 Yellow Glucose, Urine (mg/dL) Date Value 04/11/2021 1+ Bilirubin, Urine (no units) Date Value 04/11/2021 Negative Ketones, Urine (no units) Date Value 04/11/2021 Negative Specific [place], Ur (no units) Date Value 04/11/2021 1.025 Hemoglobin/Blood,Ur ( ) Date Value 04/11/2021 1+ pH, Urine (no units) Date Value 04/11/2021 6.0 Protein, Urine (no units) Date Value 04/11/2021 Negative Urobilinogen (E.U./dL) Date Value 04/11/2021 0.2 Nitrites (no units) Date Value 04/11/2021 Negative Leukest (no units) Date Value 04/11/2021 1+ MEDICATIONS: insulin detemir (LEVEMIR FLEXTOUCH U-100 INSULN SUBCUTANEOUS) LORazepam (ATIVAN) 0.5 mg aspirin 81 mg cap Take 81 mg by mouth once daily. tamsulosin (FLOMAX) 0.4 mg Take 1 capsule by mouth once daily. Take daily while ureteral stent is in place to help with stent discomfort. oxybutynin (DITROPAN) 5 mg tablet Take 1 tablet by mouth twice daily as needed (bladder spasms). gabapentin (NEURONTIN) 800 mg tablet Take 800 mg by mouth three times daily. tiZANidine HCl (ZANAFLEX) 4 mg capsule Take 4 mg by mouth three times daily. sertraline (ZOLOFT) 100 mg tablet Take 200 mg by mouth once daily. rizatriptan (MAXALT) 10 mg tablet Take 10 mg by mouth as needed. May repeat in 2 hours if needed predniSONE (DELTASONE) 10 mg tablet Take 10 mg by mouth once daily. PROAIR HFA 90 mcg/actuation inhaler Inhale 1 Puff as instructed every 4 hours as needed. metoprolol succinate ER (TOPROL XL) 50 mg 24 hr tablet Take 100 mg by mouth once daily. Zolpidem (AMBIEN CR) 12.5 mg CR tablet Take 12.5 mg by mouth at bedtime as needed. REVIEW OF SYSTEMS CONSTITUTIONAL: Patient reports no recent fever or weight loss CARDIOVASCULAR: No chest pain, palpitations or ankle edema. RESPIRATORY: No wheezing, frequent cough or shortness of breath GENITOURINARY: See HPI HISTORIES PAST MEDICAL HISTORY Diagnosis Date Diabetes mellitus type 2 (HCC) History of migraine headaches Insomnia Kidney stones Palpitations FAMILY HISTORY Problem Relation Age of Onset Heart Mother Hypertension Mother Thyroid Mother Hypo Heart Father Hypertension Father Hypertension Brother other (Fibromyalgia) Brother PAST SURGICAL HISTORY Procedure Laterality Date SECTION HX x3 HYSTEROSCOPY,W/ENDOMETRIAL ABLATION KIDNEY STONE SURGERY HX 05/01/2021 Cystoscopy, pyelograms, bilateral ureteroscopy (semi-rigid and flexible), laser lithotripsy, left ureteral stent removal, right ureteral stent exchange ([id number]) LIGATE FALLOPIAN TUBE 2002 REDUCTION OF LARGE BREAST SOCIAL HISTORY Social History Tobacco Use Smoking status: Never Smoker Smokeless tobacco: Never Used Substance Use Topics Alcohol use: Yes Comment: Social Drug use: No PHYSICAL EXAMINATION General appearance: Well appearing, alert, in no acute distress, well-hydrated, well nourished.. BACK: positive findings: jeremy CVA tenderness L>R. MUSCULOSKELETAL: Negative for joint pain or swelling. RESPIRATORY: Normal respiratory effort. SKIN: Normal color, no rash, no lesions. : See HPI Medical Decision Making: Problems: Moderate: Acute illness with systemic symptoms Data: Unique test result(s) reviewed: 1 Unique test(s) ordered: 1 Assessment requiring an independent historian(s) Independent interpretation of test from other physician/QHCP Risk: Low: Low risk from testing/treatment Medical Decision Making Level: 4 - Moderate ASSESSMENT/PLAN: 1. Left flank pain - ICD9: 789.09, ICD10: R10.9 (primary diagnosis) - CT ABD/PEL WO IVCON 2. Left upper quadrant abdominal pain - ICD9: 789.02, ICD10: R10.12 - CT ABD/PEL WO IVCON - Follow up pending results Shelbie Hopkins APRN.SUPERINTENDENT NONSELLING documented in this encounter [facility] 04-24-2021 Miscellaneous Notes Patient has been notified. Addended by: DALE MCKEON on: 04/24/2021 11:10 AM Modules accepted: Orders Sounds like typical stent pauinm, Narcotics can be used in the last 5 days prior to upcoming surgery I would recommend NSAIDs un til that time. Patient is scheduled for her 2nd surgery on 05/01/21 (see below for details). I spoke with her to confirm the surgery. She is experiencing a lot of discomfort/pain on both sides of her lower back. She mentioned she has 2 percocet pills left & asked if you'd be willing to call more in to hold her off until next Friday, please advise. (Pharmacy: [facility] in [place]) Left ESWL. C&P. Right ULL & Stent Change Bilateral ureteral calculi UCx completed 04/11/21 Covid test / Self Swab Kit expected 04/28/21 Surgery: 05/01/21 8:00 AM [facility] Arrive at 6:00 AM H&P completed 04/12/21 I called and spoke with patient. She confirmed dates, times, and locations. Prep instructions verbalized. documented in this encounter [facility] 04-19-2021 History of Present illness Narrative Radiology Service Progress Note PATIENT NAME: Mj Cole DATE OF SERVICE: April 19, 2021 TIME: 3:18 PM PATIENT IDENTITY VERIFICATION COMPLETED USING TWO (2) IDENTIFIERS: Name and Date of confirmed by patient verbally. FALL SCREENING: Has the patient had 2 falls in the last year or 1 fall with injury or currently using an Ambulatory Assistive Device (Walker, Cane, Wheelchair, Crutches, etc.)? No PATIENT GENDER DATA: Female. status: : No status: NO. PATIENT RELEVANT IMPLANT DATA REVIEWED: Not Applicable RADIOLOGY DEPARTMENT: General X-ray: Exam(s) Completed: Abdomen X-Ray: Abdomen PERIPHERAL IV DATA: Not applicable SIGNED BY: MARIO Colon April 19, 2021 3:18 PM documented in this encounter [facility] 04-12-2021 Miscellaneous Notes Have her get a KUB in 1 week to see if ESWL is an option documented in this encounter [facility] 04-12-2021 Miscellaneous Notes 04/12/2021: C&P(jeremy prox calcs) Jeremy ureteroscopy (failed access), Jeremy stents 6x24 Needs 2nd look Jeremy ureteroscopy, laser litho , stent change in 2-3 weeks Not urgent Can be H&W of CCAG documented in this encounter [facility] Diagnosis Bilateral ureteral calculi [facility] Diagnosis Microscopic hematuria- Primary [facility] Diagnosis Bilateral ureteral calculi- Primary [facility] Diagnosis Bilateral ureteral calculi- Primary [facility] Diagnosis Left flank pain- Primary Abdominal pain, unspecified site Left upper quadrant abdominal pain Left sided abdominal pain Abdominal pain, unspecified site [facility] Diagnosis Left upper quadrant abdominal pain Left flank pain Abdominal pain, unspecified site [facility] Diagnosis Seronegative rheumatoid arthritis (HCC)- Primary Rheumatoid arthritis 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, multiple sites Malaise and fatigue Other malaise and fatigue [facility] current use of systemic steroids Encounter for long-term (current) use of steroids [facility] note* Diagnosis 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, multiple sites Malaise and fatigue Other malaise and fatigue Seronegative rheumatoid arthritis (HCC) Rheumatoid arthritis [facility] current use of systemic steroids Encounter for long-term (current) use of steroids [facility] Diagnosis Seronegative rheumatoid arthritis (HCC)- Primary Rheumatoid arthritis Malaise and fatigue Other malaise and fatigue 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, 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 Encounter for long-term (current) use of steroids Hip pain 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, pelvic region and thigh documented in this encounter [facility] note* Diagnosis Seronegative rheumatoid arthritis (HCC) Rheumatoid arthritis Malaise and fatigue Other malaise and fatigue 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, multiple sites [facility] current use of systemic steroids Encounter for long-term (current) use of steroids documented in this encounter [facility] note* Diagnosis Seronegative rheumatoid arthritis (HCC)- Primary Rheumatoid arthritis High risk medication use Encounter for long-term (current) use of other medications 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, multiple sites documented in this encounter [facility] note* Diagnosis Seronegative rheumatoid arthritis (HCC) Rheumatoid arthritis documented in this encounter [facility] note* Diagnosis Seronegative rheumatoid arthritis (HCC) Rheumatoid arthritis documented in this encounter [facility] note* Diagnosis Seronegative rheumatoid arthritis (HCC)- Primary Rheumatoid arthritis High risk medication use Encounter for long-term (current) use of other medications Malaise and fatigue Other malaise and fatigue Vitamin D deficiency Unspecified vitamin D deficiency documented in this encounter [facility] for referral (narrative)* Diagnostic Procedure Only (Routine) - Pending Review Specialty Diagnoses / Procedures Referred By Contac Referred To Contact XR IMAGING Diagnoses Bilateral ureteral calculi Procedures XR ABDOMEN 1V SUPINE RADIOLOGIC EXAM ABDOMEN 1 VIEW Dale Mckeon MD [address] [place] [address] Xr Imaging Referral ID Status Reason Start Date Expiration Date Visits Requested Visits Authorized [id number] Pending Review Auto-Generat ed Referral 04/19/2021 05/12/[address] [facility] for referral (narrative)* Diagnostic Procedure Only (Routine) - Closed Specialty Diagnoses / Procedures Referred By Contac t Referred To Contact XR IMAGING Diagnoses Bilateral ureteral calculi Procedures XR ABDOMEN 1V SUPINE RADIOLOGIC EXAM ABDOMEN 1 VIEW Dale Mckeon MD [address] [place] [address] Xr Imaging Referral ID Status Reason Start Date Expiration Date V isits Requested Visits Authorized [id number] Closed Auto-Generate d Referral 04/19/2021 05/12/[address] 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 Procedures XR FOOT GENERAL 3V AP/LAT/OBL LEFT RADEX FOOT COMPLETE MINIMUM 3 VIEWS Maurisio Disla MD [address] [facility] [address] [place] [address] Xr Imaging Referral ID Status Reason Start Date Expiration Date V isits Requested Visits Authorized [id number] Closed Auto-Generate d Referral 01/30/2022 03/01/2023 1 1 * Diagnostic Procedure Only (Routine) - Closed Specialty Diagnoses / Procedures Referred By Juliana t Referred To Contact XR IMAGING Diagnoses 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, multiple sites Malaise and fatigue 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 Procedures XR FOOT GENERAL 3V AP/LAT/OBL RIGHT RADEX FOOT COMPLETE MINIMUM 3 VIEWS Maurisio Disla MD [address] [facility] [address] [place] [address] Xr Imaging Referral ID Status Reason Start Date Expiration Date V isits Requested Visits Authorized [id number] Closed Auto-Generate d Referral 01/30/2022 03/01/2023 1 1 * Diagnostic Procedure Only (Routine) - Closed Specialty Diagnoses / Procedures Referred By Juliana t Referred To Contact XR IMAGING Diagnoses 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, multiple sites Malaise and fatigue Seronegative rheumatoid arthritis (HCC) [facility] current use of systemic steroids Procedures XR HAND GENERAL 3V PA/LAT/OBL RIGHT RADEX HAND MINIMUM 3 VIEWS Maurisio Disla MD [address] [facility] [address] [place] [address] Xr Imaging Referral ID Status Reason Start Date Expiration Date V isits Requested Visits Authorized [id number] Closed Auto-Generate d Referral 01/30/2022 03/01/2023 1 1 * Diagnostic Procedure Only (Routine) - Closed Specialty Diagnoses / Procedures Referred By Juliana t Referred To Contact XR IMAGING Diagnoses 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, multiple sites Malaise and fatigue Seronegative rheumatoid arthritis (HCC) [facility] current use of systemic steroids Procedures XR HAND GENERAL 3V PA/LAT/OBL LEFT RADEX HAND MINIMUM 3 VIEWS Maurisio Disla MD [address] [facility] [address] [place] [address] Xr Imaging Referral ID Status Reason Start Date Expiration Date V isits Requested Visits Authorized [id number] Closed Auto-Generate d Referral 01/30/2022 03/01/2023 1 1 [facility] for referral (narrative)* Diagnostic Procedure Only (Routine) - Closed Specialty Diagnoses / Procedures Referred By Juliana duncan Referred To Contact XR IMAGING Diagnoses 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, multiple sites Malaise and fatigue Seronegative rheumatoid arthritis (HCC) [facility] current use of systemic steroids Procedures XR FOOT GENERAL 3V AP/LAT/OBL LEFT RADEX FOOT COMPLETE MINIMUM 3 VIEWS Maurisio Disla MD [address] [facility] [address] [place] [address] Xr Imaging Referral ID Status Reason Start Date Expiration Date V isits Requested Visits Authorized [id number] Closed Auto-Generate d Referral 01/30/2022 03/01/2023 1 1 * Diagnostic Procedure Only (Routine) - Closed Specialty Diagnoses / Procedures Referred By Juliana t Referred To Contact XR IMAGING Diagnoses 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, multiple sites Malaise and fatigue 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 Procedures XR FOOT GENERAL 3V AP/LAT/OBL RIGHT RADEX FOOT COMPLETE MINIMUM 3 VIEWS Maurisio Disla MD [address] [place] [address] Xr Imaging Referral ID Status Reason Start Date Expiration Date V isits Requested Visits Authorized [id number] Closed Auto-Generate d Referral 01/30/2022 03/01/2023 1 1 * Diagnostic Procedure Only (Routine) - Closed Specialty Diagnoses / Procedures Referred By Contac t Referred To Contact XR IMAGING Diagnoses 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, multiple sites Malaise and fatigue Seronegative rheumatoid arthritis (HCC) [facility] current use of systemic steroids Procedures XR HAND GENERAL 3V PA/LAT/OBL RIGHT RADEX HAND MINIMUM 3 VIEWS Maurisio Disla MD [address] [facility] [address] [place] [address] Xr Imaging Referral ID Status Reason Start Date Expiration Date V isits Requested Visits Authorized [id number] Closed Auto-Generate d Referral 01/30/2022 03/01/2023 1 1 * Diagnostic Procedure Only (Routine) - Closed Specialty Diagnoses / Procedures Referred By Contac t Referred To Contact XR IMAGING Diagnoses 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, multiple sites Malaise and fatigue Seronegative rheumatoid arthritis (HCC) [facility] current use of systemic steroids Procedures XR HAND GENERAL 3V PA/LAT/OBL LEFT RADEX HAND MINIMUM 3 VIEWS Maurisio Disla MD [address] [address] Xr Imaging Referral ID Status Reason Start Date Expiration Date V isits Requested Visits Authorized [id number] Closed Auto-Generate d Referral 01/30/2022 03/01/2023 1 1 [facility] for referral (narrative)* Diagnostic Procedure Only (Routine) - Closed Specialty Diagnoses / Procedures Referred By Contac t Referred To Contact XR IMAGING Diagnoses Seronegative rheumatoid arthritis (HCC) Malaise and fatigue 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, multiple sites [facility] current use of systemic steroids Procedures XR LUMBAR LIMITED 2V AP/LAT RADEX SPINE LUMBOSACRAL 2/3 VIEWS Maurisio Disla MD [address] [facility] [address] [place] [address] Xr Imaging Referral ID Status Reason Start Date Expiration Date V isits Requested Visits Authorized [id number] Closed Auto-Generate d Referral 05/02/2022 06/01/2023 1 1 * Diagnostic Procedure Only (Routine) - Closed Specialty Diagnoses / Procedures Referred By Contac t Referred To Contact XR IMAGING Diagnoses Seronegative rheumatoid arthritis (HCC) Malaise and fatigue 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, 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 Procedures XR HIP BILATERAL 5V PEL/AP/LAT EACH HIP RADEX HIPS BILATERAL WITH PELVIS MINIMUM 5 VIEWS aMurisio Disla MD [address] [place] [address] Xr Imaging Referral ID Status Reason Start Date Expiration Date V isits Requested Visits Authorized [id number] Closed Auto-Generate d Referral 05/02/2022 06/01/2023 1 1 * Diagnostic Procedure Only (Routine) - Closed Specialty Diagnoses / Procedures Referred By Contac t Referred To Contact XR IMAGING Diagnoses Seronegative rheumatoid arthritis (HCC) Malaise and fatigue 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, 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 Procedures XR SACROILIAC JOINTS 2V AP PELVIS/FERGUESON RADIOLOGIC EXAMINATION SACROILIAC JNTS <3 VIEWS Maurisio Disla MD [address] [place] [address] Xr Imaging Referral ID Status Reason Start Date Expiration Date V isits Requested Visits Authorized [id number] Closed Auto-Generate d Referral 05/02/2022 06/01/2023 1 1 [facility] for visit Narrative* Diagnostic Procedure Only (Routine) - Closed Specialty Diagnoses / Procedures Referred By Contac t Referred To Contact XR IMAGING Diagnoses Bilateral ureteral calculi Procedures XR ABDOMEN 1V SUPINE RADIOLOGIC EXAM ABDOMEN 1 VIEW Dale Mckeon MD [address] [place] [address] Xr Imaging Referral ID Status Reason Start Date Expiration Date V isits Requested Visits Authorized [id number] Closed Auto-Generate d Referral 04/19/2021 05/12/2022 1 1 [facility] for visit Narrative* Diagnostic Procedure Only (Routine) - Closed Specialty Diagnoses / Procedures Referred By Contac t Referred To Contact XR IMAGING Diagnoses 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, multiple sites Malaise and fatigue 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 Procedures XR FOOT GENERAL 3V AP/LAT/OBL LEFT RADEX FOOT COMPLETE MINIMUM 3 VIEWS Maurisio Disla MD [address] [facility] [address] [place] [address] Xr Imaging Referral ID Status Reason Start Date Expiration Date V isits Requested Visits Authorized [id number] Closed Auto-Generate d Referral 01/30/2022 03/01/2023 1 1 [facility] for visit Narrative* Diagnostic Procedure Only (Routine) - Closed Specialty Diagnoses / Procedures Referred By Contac t Referred To Contact XR IMAGING Diagnoses Seronegative rheumatoid arthritis (HCC) Malaise and fatigue 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, 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 Procedures XR LUMBAR LIMITED 2V AP/LAT RADEX SPINE LUMBOSACRAL 2/3 VIEWS Maurisio Disla MD [address] [facility] [address] [place] [address] Xr Imaging Referral ID Status Reason Start Date Expiration Date V isits Requested Visits Authorized [id number] Closed Auto-Generate d Referral 05/02/2022 06/01/2023 1 1 [facility] Summary Purpose Family History No Family History Records FoundNo Family History Records FoundNo Family History Records FoundNo Family History Records FoundNo Family History Records Found Advance Directives No Advanced Directives Records FoundDocuments on File Type Date Recorded 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 Advance Directive(s) 04/11/2021 1:38 AM Documents on File Type Date Recorded 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 Advance Directive(s) 04/11/2021 1:38 AM Documents on File Type Date Recorded 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 Advance Directive(s) 05/01/2021 5:53 AM Advance Directive(s) 04/11/2021 1:38 AM Reason for Referral Specialty Diagnoses / Procedures Referred By Contac t Referred To Contact CT IMAGING Diagnoses Left upper quadrant abdominal pain Left flank pain Procedures CT ABD/PEL WO IVCON CT ABD & PELVIS W/O CONTRAST Shelbie Hopkins, SHANK TAPER.SUPERINTENDENT NONSELLING [address] [place] [address] Ct Imaging Referral ID Status Reason Start Date Expiration Date Visits Requested Visits Authorized [id number] Incomplete Auto-Generat ed Referral 07/13/2021 08/12/2022 1 1 Referral ID Status Reason Start Date Expiration Date Visits Requested Visits Authorized [id number] Pending Review Auto-Generat ed Referral 07/13/2021 08/12/2022 1 1 Specialty Diagnoses / Procedures Referred By Contac t Referred To Contact Diagnoses Seronegative rheumatoid arthritis (HCC) Malaise and fatigue 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, multiple sites [facility] current use of systemic steroids Maurisio Disla MD [address] [place] [address] Referral ID Status Reason Start Date Expiration Date V isits Requested Visits Authorized [id number] Pending Review 1 1 Specialty Diagnoses / Procedures Referred By Contac t Referred To Contact XR IMAGING Diagnoses Seronegative rheumatoid arthritis (HCC) Malaise and fatigue 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, multiple sites [facility] current use of systemic steroids Procedures XR LUMBAR LIMITED 2V AP/LAT RADEX SPINE LUMBOSACRAL 2/3 VIEWS Maurisio Disla MD [address] [place] [address] Xr Imaging Referral ID Status Reason Start Date Expiration Date V isits Requested Visits Authorized [id number] Closed Auto-Generate d Referral 05/02/2022 06/01/2023 1 1 Specialty Diagnoses / Procedures Referred By Contac t Referred To Contact XR IMAGING Diagnoses Seronegative rheumatoid arthritis (HCC) Malaise and fatigue 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, 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 Procedures XR HIP BILATERAL 5V PEL/AP/LAT EACH HIP RADEX HIPS BILATERAL WITH PELVIS MINIMUM 5 VIEWS Maurisio Disla MD [address] [facility] [address] [place] [address] Xr Imaging Referral ID Status Reason Start Date Expiration Date V isits Requested Visits Authorized [id number] Closed Auto-Generate d Referral 05/02/2022 06/01/2023 1 1 Specialty Diagnoses / Procedures Referred By Contpankaj t Referred To Contact XR IMAGING Diagnoses Seronegative rheumatoid arthritis (HCC) Malaise and fatigue 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, multiple sites [facility] current use of systemic steroids Procedures XR SACROILIAC JOINTS 2V AP PELVIS/FERGUESON RADIOLOGIC EXAMINATION SACROILIAC JNTS <3 VIEWS Maurisio Disla MD [address] [place] [address] Xr Imaging Referral ID Status Reason Start Date Expiration Date V isits Requested Visits Authorized [id number] Closed Auto-Generate d Referral 05/02/2022 06/01/2023 1 1 Additional Source Comments INFORMATION SOURCE (unrecogn ized section and content) DATE CREATED AUTHOR AUTHOR'S ORGANIZ ATION 10/08/2017 [facility] DATE CREATED AUTHOR AUTHOR'S ORGANIZ ATION 09/03/2022 [facility] DATE CREATED AUTHOR AUTHOR'S ORGANIZ ATION 12/13/2022 [facility] DATE CREATED AUTHOR AUTHOR'S ORGANIZ ATION 03/11/2023 [facility] Source Comments (unrecognize d section and content) In the event this informatio n is protected by the Federal Confidentiality of Alcohol and Drug Abuse Patient Records regulations: The Federal rules restrict any use of the information to criminally investigate or prosecute any alcohol or drug abuse patient.[facility] the event this information is protected by the Federal Confidentiality of Alcohol and Drug Abuse Patient Records regulations: The Federal rules restrict any use of the information to criminally investigate or prosecute any alcohol or drug abuse patient.[facility] the event this information is protected by the Federal Confidentiality of Alcohol and Drug Abuse Patient Records regulations: The Federal rules restrict any use of the information to criminally investigate or prosecute any alcohol or drug abuse patient.[facility] the event this information is protected by the Federal Confidentiality of Alcohol and Drug Abuse Patient Records regulations: The Federal rules restrict any use of the information to criminally investigate or prosecute any alcohol or drug abuse patient.[facility] the event this information is protected by the Federal Confidentiality of Alcohol and Drug Abuse Patient Records regulations: The Federal rules restrict any use of the information to criminally investigate or prosecute any alcohol or drug abuse patient.[facility] the event this information is protected by the Federal Confidentiality of Alcohol and Drug Abuse Patient Records regulations: The Federal rules restrict any use of the information to criminally investigate or prosecute any alcohol or drug abuse patient.[facility] the event this information is protected by the Federal Confidentiality of Alcohol and Drug Abuse Patient Records regulations: The Federal rules restrict any use of the information to criminally investigate or prosecute any alcohol or drug abuse patient.[facility] the event this information is protected by the Federal Confidentiality of Alcohol and Drug Abuse Patient Records regulations: The Federal rules restrict any use of the information to criminally investigate or prosecute any alcohol or drug abuse patient.[facility] the event this information is protected by the Federal Confidentiality of Alcohol and Drug Abuse Patient Records regulations: The Federal rules restrict any use of the information to criminally investigate or prosecute any alcohol or drug abuse patient.[facility] the event this information is protected by the Federal Confidentiality of Alcohol and Drug Abuse Patient Records regulations: The Federal rules restrict any use of the information to criminally investigate or prosecute any alcohol or drug abuse patient.[facility] the event this information is protected by the Federal Confidentiality of Alcohol and Drug Abuse Patient Records regulations: The Federal rules restrict any use of the information to criminally investigate or prosecute any alcohol or drug abuse patient.[facility] the event this information is protected by the Federal Confidentiality of Alcohol and Drug Abuse Patient Records regulations: The Federal rules restrict any use of the information to criminally investigate or prosecute any alcohol or drug abuse patient.[facility] the event this information is protected by the Federal Confidentiality of Alcohol and Drug Abuse Patient Records regulations: The Federal rules restrict any use of the information to criminally investigate or prosecute any alcohol or drug abuse patient.[facility] the event this information is protected by the Federal Confidentiality of Alcohol and Drug Abuse Patient Records regulations: The Federal rules restrict any use of the information to criminally investigate or prosecute any alcohol or drug abuse patient.[facility] the event this information is protected by the Federal Confidentiality of Alcohol and Drug Abuse Patient Records regulations: The Federal rules restrict any use of the information to criminally investigate or prosecute any alcohol or drug abuse patient.[facility] the event this information is protected by the Federal Confidentiality of Alcohol and Drug Abuse Patient Records regulations: The Federal rules restrict any use of the information to criminally investigate or prosecute any alcohol or drug abuse patient.[facility] the event this information is protected by the Federal Confidentiality of Alcohol and Drug Abuse Patient Records regulations: The Federal rules restrict any use of the information to criminally investigate or prosecute any alcohol or drug abuse patient.[facility] the event this information is protected by the Federal Confidentiality of Alcohol and Drug Abuse Patient Records regulations: The Federal rules restrict any use of the information to criminally investigate or prosecute any alcohol or drug abuse patient.[facility] the event this information is protected by the Federal Confidentiality of Alcohol and Drug Abuse Patient Records regulations: The Federal rules restrict any use of the information to criminally investigate or prosecute any alcohol or drug abuse patient.[facility] the event this information is protected by the Federal Confidentiality of Alcohol and Drug Abuse Patient Records regulations: The Federal rules restrict any use of the information to criminally investigate or prosecute any alcohol or drug abuse patient.[facility] the event this information is protected by the Federal Confidentiality of Alcohol and Drug Abuse Patient Records regulations: The Federal rules restrict any use of the information to criminally investigate or prosecute any alcohol or drug abuse patient.[facility] the event this information is protected by the Federal Confidentiality of Alcohol and Drug Abuse Patient Records regulations: The Federal rules restrict any use of the information to criminally investigate or prosecute any alcohol or drug abuse patient.[facility] the event this information is protected by the Federal Confidentiality of Alcohol and Drug Abuse Patient Records regulations: The Federal rules restrict any use of the information to criminally investigate or prosecute any alcohol or drug abuse patient.[facility] the event this information is protected by the Federal Confidentiality of Alcohol and Drug Abuse Patient Records regulations: The Federal rules restrict any use of the information to criminally investigate or prosecute any alcohol or drug abuse patient.[facility] Reason for Visit (unrecogniz ed section and content) Reason Comments Schedule Surgery Reason Comments Schedule Surgery Reason Comments Surgery Scheduled Reason Comments Abdominal Pain nausea, pain radiate s to left back Specialty Diagnoses / Procedures Referred By Contac t Referred To Contact CT IMAGING Diagnoses Left upper quadrant abdominal pain Left flank pain Procedures CT ABD/PEL WO IVCON CT ABD & PELVIS W/O CONTRAST Shelbie Hopkins APRN.SUPERINTENDENT NONSELLING [address] [place] [address] Ct Imaging Referral ID Status Reason Start Date Expiration Date Visits Requested Visits Authorized [id number] Pending Review Auto-Generat ed Referral 07/13/2021 08/12/2022 1 1 Reason Comments F/U 1 month Reason Comments Medication Preauthorization [email or web address] Reason Comments Rheumatoid Arthritis Reason Comments Refill Request Reason Onset Date Comments Refill Request 01/30/2023 Care Teams (unrecognized sec tion and content) Professor Of Counseling Relationship Specialty Start Date End Date Daniela Diallo MD [address] [facility], [place] [id number] PCP - General Family Practice 04/11/21 Professor Of Counseling Relationship Specialty Start Date End Date Daniela Diallo MD [address] [facility] [place], [place] [address] PCP - General Family Practice 04/11/21 Professor Of Counseling Relationship Specialty Start Date End Date Daniela Diallo MD [address] [facility], [place] [id number] PCP - General Family Practice 04/11/21 Professor Of Counseling Relationship Specialty Start Date End Date Daniela Diallo MD [address] [facility] [place], [place] [id number] PCP - General Family Practice 04/11/21 Professor Of Counseling Relationship Specialty Start Date End Date Daniela Diallo MD [address] [place] [address] PCP - General Family Practice 04/11/21 Professor Of Counseling Relationship Specialty Start Date End Date Daniela Diallo MD [address] [facility] [place] [address] PCP - General Family Practice 04/11/21 Professor Of Counseling Relationship Specialty Start Date End Date Daniela Diallo MD [address] [facility] [place] [address] PCP - General Family Practice 04/11/21 Professor Of Counseling Relationship Specialty Start Date End Date Daniela Diallo MD [address] [place] [address] PCP - General Family Medicine 04/11/21 Марина Bain [address] [place] [address] Rheumatology 01/30/22 01/30/22 Professor Of Counseling Relationship Specialty Start Date End Date Daniela Diallo MD [address] [place] [address] PCP - General Family Medicine 04/11/21 Марина Bain [address] [place] [address] Rheumatology 01/30/22 01/30/22 Professor Of Counseling Relationship Specialty Start Date End Date Daniela Diallo MD [address] [place] [address] PCP - General Family Medicine 04/11/21 Professor Of Counseling Relationship Specialty Start Date End Date Daniela Diallo MD [address] [place] [address] PCP - General Family Medicine 04/11/21 Professor Of Counseling Relationship Specialty Start Date End Date Daniela Diallo MD [address] [place] [address] PCP - General Family Medicine 04/11/21 Professor Of Counseling Relationship Specialty Start Date End Date Daniela Diallo MD [address] [place] [address] PCP - General Family Medicine 04/11/21 Professor Of Counseling Relationship Specialty Start Date End Date Daniela Diallo MD [address] [place] [address] PCP - General Family Medicine 04/11/21 Professor Of Counseling Relationship Specialty Start Date End Date Daniela Diallo MD [address] [place], [place] [id number] PCP - General Family Medicine 04/11/21 Professor Of Counseling Relationship Specialty Start Date End Date Daniela Diallo MD [address] [place], [place] [address] PCP - General Family Medicine 04/11/21 Professor Of Counseling Relationship Specialty Start Date End Date Daniela Diallo MD [address] [place], [place] [address] PCP - General Family Medicine 04/11/21 Professor Of Counseling Relationship Specialty Start Date End Date Daniela Diallo MD [address] [place], [place] [address] PCP - General Family Medicine 04/11/21 FOR RECORDS PERTAINING TO PATIENTS WHO ARE OR HAVE BEEN ENROLLED IN A CHEMICAL DEPENDENCY/SUBSTANCEABUSE PROGRAM, SOME INFORMATION MAY BE OMITTED. This clinical summary was aggregated from multiple sources. Caution should be exercised in using it in the provision of clinical care. This summary normalizes information from multiple sources, and as a consequence, information in this document may materially change the coding, format and clinical context of patient data. In addition, data may be omitted in some cases. CLINICAL DECISIONS SHOULD BE BASED ON THE PRIMARY CLINICAL RECORDS. [facility] [employer] [facility]. provides no warranty or guarantee of the accuracy or completeness of information in this document.
== END | disposition home or self-care (01) ==
PROVIDERS: PCP Family Medicine; Referring Provider Family Medicine; Visit Provider Family Medicine
DX: Z12.31 Encounter for screening mammogram for malignant neoplasm of breast (principal); E04.1 Nontoxic single thyroid nodule
CPT/HCPCS: 76536; 77063; 77067

== ENCOUNTER → 2023-05-08 | Outpatient (CLI) | payer MEDICAID, SELFPAY ==
--- OUTSIDE RECORDS SUMMARY | 2023-05-08 19:50 | XMS RPT_ITS | CCD ---
Author Name Unknown Address [address] [place] [address] Organization [facility] Care Team Providers Care Primary Health Organisation Manager Name Role Phone Polifrone, C Unavailable Unavailable [...] (1 source) ibuprofen; Translations: [IBUPROFEN] Drug Allergy [facility] Repository (1 source) SULFA (SULFONAMIDE A; Translations: [SULFA (SULFONAMIDE A] Propensity to adverse reactions (disorder) [facility] Repository (20 sources) Sulfonamides (Antibiotic); Translations: [SULFA (SULFONAMIDE ANTIBIOTICS)] Drug Allergy 7 Rash, Hives [facility] Medications Completed/Discontinued Medications Medication Drug Class(es) Dates [...] Long-term current use of systemic steroid; Translations: [half-way (current) use of systemic steroids] Episodic Other aftercare (2 sources) Taking high risk medication; Translations: [Other extermination inspector (current) drug therapy] 12-04-2022 Episodic Other non-traumatic [...] 04-11-2021 Episodic Other aftercare (3 sources) Other detention (current) drug therapy; Translations: [High risk medication use] Onset: 09-03-2022 Episodic Other aftercare (1 source) half-way (current) use of systemic steroids; Translations: [half-way current use of systemic steroids] Onset: 05-02-2022 [...] 156.2 cm Maurisio Disla MD Work Phone: [facility] 05-02-2022 10:18-0500 Body temperature 98.29 [degF] Maurisio Disla MD Work Phone: [facility] 05-02-2022 10:18-0500 Body weight 87.09 kg Maurisio Disla MD Work Phone: [facility] 05-02-2022 10:18-0500 Diastolic blood pressure 100 mm[Hg] Maurisio Disla MD Work Phone: [facility] 05-02-2022 10:18-0500 Heart rate 113 /min Maurisio Disla MD Work Phone: [facility] 05-02-2022 10:18-0500 Systolic blood pressure 154 mm[Hg] Maurisio Disla MD Work Phone: [facility] 01-30-2022 13:06-0400 Body height 156.2 cm Maurisio Disla MD Work Phone: [facility] 01-30-2022 13:06-0400 Body weight 88.45 kg Maurisio Disla MD Work Phone: [facility] 07-13-2021 10:50-0400 Body height 156.2 cm Shelbie Hopkins APRN.[employer] Work Phone: [facility] 07-13-2021 10:50-0400 Body weight 81.65 kg Shelbie Hopkins APRN.[employer] Work Phone: [facility] 07-13-2021 10:50-0400 Diastolic blood pressure 80 mm[Hg] Shelbie Hopkins APRN.[employer] Work Phone: [facility] 07-13-2021 10:50-0400 Systolic blood pressure 122 mm[Hg] Shelbie Hopkins APRN.[employer] Work Phone: [facility] Encounters Encounter Date Encounter Type Care Provider Facility Start: 03-10-2023 End: 03-10-2023 ambulatory MAURISIO DISLA Facility:[facility] Start: 03-10-2023 End: 03-10-2023 ambulatory Maurisio Disla MD Work Phone: [facility] Procedures Date Procedure Procedure Detail Performing Clinician Start: 05-02-2022 Radex hips bilateral with pelvis minimum 5 views Maurisio Disla MD Work Phone: Start: 07-13-2021 Ct abdomen & pelvis w/o contrast material Shelbie Hopkins APRN.CNP Work Phone: Start: 07-13-2021 Urnls dip stick/tabl et rgnt auto w/o microscopy Shelbie Hopkins APRN.[employer] Work Phone: Start: 04-19-2021 Radiologic exam abdo men 1 view Dale Mckeon MD Work Phone: Start: 09-26-2016 CONVERTED CYTOLOGY FOUNTAIN ATTENDANT Alexander Salguero Work Phone: Start: 10-26-2010 CONVERTED SURGICAL PATHOLOGY Alexander Salguero Work Phone: Start: 06-11-2001 CONVERTED SURGICAL PATHOLOGY Alexander Salguero Work Phone: Plan of Treatment Date Care Activity Detail Author Start: 12-12-2025 Diabetes Screening Diabetes Screenjim correia [facility] Start: 09-03-2025 DIABETES SCREEN DIABETES SCREEN [facility] Start: 04-12-2024 DIABETES SCREEN DIABETES SCREEN [facility] Start: 04-11-2024 DIABETES SCREEN DIABETES SCREEN [facility] Start: 03-10-2023 End: 06-09-2023 25-hydroxyvitamin D3 [Mass/volume] in Serum or Plasma VITAMIN D 25 HYDROXY Lab Routine Seronegative rheumatoid arthritis (HCC) High risk medication use Malaise and fatigue Vitamin D deficiency Expected: 03/10/2023, Expires: 06/09/2023 [facility] Work Phone: Immunizations Immunization Date Immunization Notes Care Provider Izabella crawley 03-13-2022 influenza virus vacc ine, unspecified formulation Narayan Gomez PA-C Work Phone: [facility] Payers Date Payer Category Payer Medicaid [id number] 2021 Private Health Insurance EHP AET NA EHP PLUS STAFF/NON STAFF / EHP Plus [employer] [id number] 2021-Present [address] [place] [address] PPO [id number] 2021 Medicaid [employer] MEDICAID [id number] 2021-Present [phone] [address] [place] [address] Medicaid [id number] 2021 Medicaid [id number] 2021 Medicaid [id number] Private Health Insurance Private Health Insurance [id number] Social History Date Type Detail Facility [facility] if ever smoked [facility] Start: 1970 Sex Assigned At Not on file C [facility] Start: 09-26-2016 Tobacco smoking stat [facility] Never smoker [facility] Start: 09-26-2016 Tobacco use and exposure Never used [facility] Start: 09-26-2016 End: 03-10-2023 Alcohol intake Current drinker of alcohol (finding) [facility] Start: 09-26-2016 Alcohol Comment Social [place] [facility] Start: 07-03-2021 End: 01-30-2022 Exposure to SARS-CoV-2 (event) Not sure [facility] Start: 1970 [facility]: 09-02-2022 End: 12-04-2022 History of Social function [facility] Start: 09-02-2022 End: 12-04-2022 Tobacco use panel [facility] National Score (1-10 0), lower number is lower risk 75 [facility] Start: 04-18-2021 Gender identity Identifies as female gender (finding) [facility] Start: 04-18-2021 Sexual orientation Heterosexual (fin ding) [facility] Clinical Notes 04-12-2021 to 03-10-2023 Maurisio Disla MD - 03/10/2023 2:12 PM ESTTelephone Encounter - Mignon Juarez LPN - 03/10/2023 8:34 AM ESTTelephone Encounter - Nancie Chapman MA - 02/20/2023 10:18 AM EST Note Date & Type Note Facility 03-10-2023 Note HNO ID: [id number] Author: Maurisio Disla MD Service: ? Author [...] visit. Either the patient or their legal surgical sales representative has been informed of the risks [...] and methotrexate in the past by previous hospital fellow but did not notice any improvement with [...] and Ambien. New patient visit January 2022 jM Cole is a 51 year old female who presents with history of seronegative rheumatoid arthritis diagnosed in 2017 by her previous hospital fellow, long-term prednisone use is here for evaluation. [...] Humira dose. 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 [facility] 03-10-2023 History of Present illness Narrative Subjective [...] visit. Either the patient or their legal surgical sales representative has been informed of the risks [...] and methotrexate in the past by previous hospital fellow but did not notice any improvement with [...] arthritis diagnosed in 2016 by her previous hospital fellow, long-term prednisone use is here for evaluation. [...] Humira dose. 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 Neuropathy Seronegative rheumatoid arthritis (HCC) PAST SURGICAL HISTORY Procedure Laterality Date SECTION HX x3 HYSTEROSCOPY,W/ENDOMETRIAL ABLATION KIDNEY STONE SURGERY HX 05/01/2021 Cystoscopy, pyelograms, bilateral ureteroscopy (semi-rigid and flexible), laser lithotripsy, left ureteral stent removal, right ureteral stent exchange ([id number]) LIGATE FALLOPIAN TUBE 2001 REDUCTION OF LARGE [...] Immunization History Administered Date(s) Administered COVID-19 vaccine ([employer]) 05/24/2021 Current Outpatient Medications Medication Sig predniSONE [...] something in eye: No Itching eyes: No [id number]-THROAT: Ringing in ears: Yes Loss of hearing: [...] seronegative rheumatoid in the past by previous hospital fellow-failed methotrexate, Plaquenil and Humira. Has weaned off [...] Ambien Follow-up in 3 months with physician educational program assistant, 6 months with me This note was partially generated using Disrupt CK voice recognition system, and there may be some incorrect words, spellings, and punctuation that were not noted in checking the note before saving. [facility] on 11/27/23 CBC + DIFF COMP METABOLIC PANEL C-REACTIVE PROTEIN (CRP) SED RATE WESTERGREN VITAMIN D 25 HYDROXY No follow-ups on file. Maurisio Disla MD documented in this encounter [facility] 03-10-2023 Miscellaneous Notes Pharmacy faxed requesting the following refill. Requested Prescriptions Pending Prescriptions Disp Refills XELJANZ 5 mg tablet [Pharmacy Med Name: XELJANZ 5 MG TABLET] 60 tablet Sig: Take 1 tablet (5 mg) by mouth two times a day. Patient last appointment: 12/04/2022 Next Appointment: 03/10/2023 Patient Phone numbers: [phone] (home) Request is for script(s) [place] [address] [address] [phone] Mignon Juarez LPN documented in this encounter [facility] 02-20-2023 Miscellaneous Notes Pharmacy faxed requesting the following refill. Requested Prescriptions Pending Prescriptions Disp Refills predniSONE (DELTASONE) 5 mg tablet [Pharmacy Med Name: predniSONE 5 MG Oral Tablet] 30 tablet 0 Sig: TAKE 1 TABLET BY MOUTH ONCE DAILY NEEDED FOR FLARES Patient last appointment: 12/04/22 Next Appointment: 03/10/23 Patient Phone numbers: [phone] (home) Request is for script(s) to be escript to pharmacy. Nancie Chapman MA documented in this encounter [facility] 01-31-2023 Miscellaneous Notes Patient faxed requesting the following refill. Duplicate request Requested Prescriptions Pending Prescriptions Disp Refills predniSONE (DELTASONE) 5 mg tablet [Pharmacy Med Name: predniSONE 5 MG Oral Tablet] 30 tablet 0 Sig: TAKE 1 TABLET BY MOUTH ONCE DAILY NEEDED FOR FLARES Patient last appointment: 12/04/22 Next Appointment: 03/10/23 Patient Phone numbers: [phone] (home) Request is for script(s) to be escript to pharmacy. Nancie Chapman MA documented in this encounter [facility] 01-31-2023 Miscellaneous Notes Patient sent a Acunu message requesting the following refill. Requested Prescriptions Pending Prescriptions Disp Refills predniSONE (DELTASONE) 5 mg tablet 30 tablet 0 Sig: Take 1 tablet daily as needed for flares Patient last appointment: 12/04/22 Next Appointment: 03/10/23 Patient Phone numbers: [phone] (home) Request is for script(s) to be escript to pharmacy. Nancie Chapman MA documented in this encounter [facility] 12-09-2022 Miscellaneous Notes Pharmacy faxed requesting the following refill. Requested Prescriptions Pending Prescriptions Disp Refills tofacitinib (XELJANZ) 5 mg tablet [Pharmacy Med Name: XELJANZ 5 MG TABLET] 180 tablet 0 Sig: Take 1 tablet (5 mg) by mouth twice daily. Patient last appointment: 05/02/2022 Next Appointment: 03/10/2023 Patient Phone numbers: [phone] (home) Request is for script(s) to be escript to pharmacy. Shayy Hair MA documented in this encounter [facility] 12-04-2022 Note HNO ID: [id number] Author: Narayan Gomez PA-C Service: ? Author Type: Physician Statuary Painter Type: Progress Notes Filed: 12/04/2022 3:02 PM Note Text: [facility] General Arthritis and Rheumatology Narayan Gomez [address] [place] [address] RHEUMATOLOGY PROGRESS NOTE. VIRTUAL VISIT PROGRESS NOTE This is a virtual visit using HIPAA compliant video platform. It required patient-provider interaction for the medical decision making as documented below using [employer] System[employer]. I have communicated my name and active licensure. The patient?s identity and physical location were verified at the time of this visit. Either the patient or their legal surgical sales representative has been informed of the risks [...] and methotrexate in the past by previous hospital fellow but did not notice any improvement with [...] arthritis diagnosed in 2016 by her previous hospital fellow, long-term prednisone use is here for evaluation. [...] Humira dose. 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 [facility] 12-04-2022 History of Present illness Narrative Images from the original note were not included. [facility] Arthritis and Rheumatology Narayan Gomez [address] [place] [address] [place] [address] RHEUMATOLOGY PROGRESS NOTE. VIRTUAL VISIT PROGRESS NOTE This is a virtual visit using HIPAA compliant video platform. It required patient-provider interaction for the medical decision making as documented below using Acunu. I have communicated my name and active licensure. The patient s identity and physical location were verified at the time of this visit. Either the patient or their legal surgical sales representative has been informed of the risks [...] and methotrexate in the past by previous hospital fellow but did not notice any improvement with [...] arthritis diagnosed in 2017 by her previous hospital fellow, long-term prednisone use is here for evaluation. [...] Humira dose. 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 Has weaned off [...] per month Continue to stay off prednisone detention Continues to describe pain in the low [...] Narayan Gomez PA-C documented in this encounter [facility] 09-02-2022 Note HNO ID: [id number] Author: Maurisio Disla MD Service: ? Author [...] visit. Either the patient or their legal surgical sales representative has been informed of the risks [...] She was recommended [employer] but approved for [employer] for insurance and has been on it [...] and methotrexate in the past by previous hospital fellow but did not notice any improvement with [...] arthritis diagnosed in 2017 by her previous hospital fellow, long-term prednisone use is here for evaluation. [...] Humira dose. 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 [facility] 05-02-2022 Note HNO ID: [id number] Author: RT Ana(R) Service: Radiology Author Type: [...] RT Ana(R) May 02, 2022 11:00 AM [facility] 05-02-2022 Note HNO ID: [id number] Author: Maurisio Disla MD Service: ? Author [...] and methotrexate in the past by previous hospital fellow but did not notice any improvement with [...] arthritis diagnosed in 2017 by her previous hospital fellow, long-term prednisone use is here for evaluation. [...] Humira dose. She stopped seeing her previous hospital fellow because of change in insurance and had [...] History of migraine headaches Insomnia Kidney stones half-way systemic steroid user Neuropathy Seronegative rheumatoid arthritis (HCC) PAST SURGICAL HISTORY Procedure Laterality Date SECTION HX x3 HYSTEROSCOPY,W/ENDOMETRIAL ABLATION KIDNEY STONE SURGERY HX 05/01/2021 Cystoscopy, pyelograms, bilateral ureteroscopy (semi-rigid and flexible), laser lithotripsy, left ureteral stent removal, right ureteral stent exchange ([id number]) LIGATE FALLOPIAN TUBE 2002 REDUCTION OF LARGE [...] Immunization History Administered Date(s) Administered COVID-19 vaccine (CEHLA) 05/24/2021 Current Outpatient Medications Medication Sig upadacitinib [...] Take 100 mg (more content not included)... [facility] 05-02-2022 History of Present illness Narrative Radiology [...] 2022 11:00 AM documented in this encounter [facility] 05-02-2022 Miscellaneous Notes At checkout per Dr Disla: Rinvoq info, prior auth, enter pharmacy Betzaida Samuel Dundee documented in this encounter [facility] 05-02-2022 History of Present illness Narrative Subjective [...] and methotrexate in the past by previous hospital fellow but did not notice any improvement with [...] arthritis diagnosed in 2017 by her previous hospital fellow, long-term prednisone use is here for evaluation. [...] Humira dose. She stopped seeing her previous hospital fellow because of change in insurance and had [...] History of migraine headaches Insomnia Kidney stones half-way systemic steroid user Neuropathy Seronegative rheumatoid arthritis (HCC) PAST SURGICAL HISTORY Procedure Laterality Date SECTION HX x3 HYSTEROSCOPY,W/ENDOMETRIAL ABLATION KIDNEY STONE SURGERY HX 05/01/2021 Cystoscopy, pyelograms, bilateral ureteroscopy (semi-rigid and flexible), laser lithotripsy, left ureteral stent removal, right ureteral stent exchange ([id number]) LIGATE FALLOPIAN TUBE 2001 REDUCTION OF LARGE [...] something in eye: No Itching eyes: No [id number]-THROAT: Ringing in ears: Yes Loss of hearing: [...] (M25.50) 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, multiple sites (Z79.52) half-way current use of systemic steroids 51-year-old pleasant lady with 1. Anti-CCP positive rheumatoid arthritis-diagnosed with seronegative rheumatoid in the past by previous hospital fellow-failed methotrexate, Plaquenil and Humira. Has weaned off [...] in 4 to 6 weeks with physician educational program assistant, follow-up with me in 4 months During this patients visit I have spent more then 50% Face to Face time out of 40 mins in counseling regarding treatment options, medications, test results, and coordinating care and coordinating care This note was partially generated using Disrupt CK voice recognition system, and there may be [...] Maurisio Disla MD documented in this encounter [facility] 04-05-2022 Miscellaneous Notes This patient gave consent [...] seven days of my reply. See the Acunu message reply for my assessment and plan. I spent a total of 5 minutes reviewing the patient's prior medical records and current request for medical advice, prescribing medications or ordering tests (if applicable), replying to the patient, and documenting the encounter. documented in this encounter [facility] 01-30-2022 History of Present illness Narrative Radiology [...] 2022 1:45 PM documented in this encounter [facility] 01-30-2022 History of Present illness Narrative Subjective HPI: Mj Cole is a 51 year old female who presents with history of seronegative rheumatoid arthritis diagnosed in 2017 by her previous hospital fellow, long-term prednisone use is here for evaluation. [...] Humira dose. She stopped seeing her previous hospital fellow because of change in insurance and had [...] History of migraine headaches Insomnia Kidney stones half-way systemic steroid user Neuropathy Seronegative rheumatoid arthritis (HCC) PAST SURGICAL HISTORY Procedure Laterality Date SECTION HX x3 HYSTEROSCOPY,W/ENDOMETRIAL ABLATION KIDNEY STONE SURGERY HX 05/01/2021 Cystoscopy, pyelograms, bilateral ureteroscopy (semi-rigid and flexible), laser lithotripsy, left ureteral stent removal, right ureteral stent exchange ([id number]) LIGATE FALLOPIAN TUBE 2001 REDUCTION OF LARGE [...] something in eye: No Itching eyes: No [id number]-THROAT: Ringing in ears: Yes Loss of hearing: [...] sites (R53.81, R53.83) Malaise and fatigue (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 51-year-old [...] of seronegative rheumatoid arthritis-obtain notes from previous hospital fellow Gives history of being on Humira and [...] weeks This note was partially generated using Disrupt CK voice recognition system, and there may be [...] Maurisio Disla MD documented in this encounter [facility] 07-13-2021 History of Present illness Narrative ESTABLISHED [...] (no units) Date Value 04/11/2021 Negative Specific [place], Ur (no units) Date Value 04/11/2021 1.025 [...] ureteral stent removal, right ureteral stent exchange ([id number]) LIGATE FALLOPIAN TUBE 2002 REDUCTION OF LARGE [...] - Follow up pending results Shelbie Hopkins APRN.[employer] documented in this encounter [facility] 04-24-2021 Miscellaneous Notes Patient has been notified. [...] next Friday, please advise. (Pharmacy: [facility] in [place]) Left ESWL. C&P. Right ULL & Stent Change Bilateral ureteral calculi UCx completed 04/11/21 Covid test / Self Swab Kit expected 04/28/21 Surgery: 05/01/21 8:00 AM [facility] Arrive at 6:00 AM H&P completed 04/12/21 I called and spoke with patient. She confirmed dates, times, and locations. Prep instructions verbalized. documented in this encounter [facility] 04-19-2021 History of Present illness Narrative Radiology [...] 2021 3:18 PM documented in this encounter [facility] 04-12-2021 Miscellaneous Notes Have her get a KUB in 1 week to see if ESWL is an option documented in this encounter [facility] 04-12-2021 Miscellaneous Notes 04/12/2021: C&P(jeremy prox calcs) Jeremy ureteroscopy (failed access), Jeremy stents [id number] Needs 2nd look Jeremy ureteroscopy, laser litho , stent change in 2-3 weeks Not urgent Can be H&W of [facility] documented in this encounter [facility] Diagnosis Bilateral ureteral calculi [facility] Diagnosis Microscopic hematuria- Primary [facility] Diagnosis Bilateral ureteral calculi- Primary [facility] Diagnosis Bilateral ureteral calculi- Primary [facility] Diagnosis Left flank pain- Primary Abdominal pain, unspecified site Left upper quadrant abdominal pain Left sided abdominal pain Abdominal pain, unspecified site [facility] Diagnosis Left upper quadrant abdominal pain Left flank pain Abdominal pain, unspecified site [facility] Diagnosis Seronegative rheumatoid arthritis (HCC)- Primary Rheumatoid arthritis 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, multiple sites Malaise and fatigue Other malaise and fatigue half-way current use of systemic steroids Encounter for long-term (current) use of steroids [facility] Diagnosis 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, multiple sites Malaise and fatigue Other malaise and fatigue Seronegative rheumatoid arthritis (HCC) Rheumatoid arthritis half-way current use of systemic steroids Encounter for long-term (current) use of steroids [facility] Diagnosis Seronegative rheumatoid arthritis (HCC)- Primary Rheumatoid arthritis Malaise and fatigue Other malaise and fatigue 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, multiple sites 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 Encounter for long-term (current) use of steroids Hip pain 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, pelvic region and thigh documented in this encounter [facility] note* Diagnosis Seronegative rheumatoid arthritis (HCC) Rheumatoid arthritis Malaise and fatigue Other malaise and fatigue 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, multiple sites half-way current use of systemic steroids Encounter for long-term (current) use of steroids documented in this encounter [facility] note* Diagnosis Seronegative rheumatoid arthritis (HCC)- Primary Rheumatoid arthritis High risk medication use Encounter for long-term (current) use of other medications 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, multiple sites documented in this encounter [facility] note* Diagnosis Seronegative rheumatoid arthritis (HCC) Rheumatoid arthritis documented in this encounter [facility] note* Diagnosis Seronegative rheumatoid arthritis (HCC) Rheumatoid arthritis documented in this encounter [facility] note* Diagnosis Seronegative rheumatoid arthritis (HCC)- Primary Rheumatoid arthritis High risk medication use Encounter for long-term (current) use of other medications Malaise and fatigue Other malaise and fatigue Vitamin D deficiency Unspecified vitamin D deficiency documented in this encounter [facility] for referral (narrative)* Diagnostic Procedure Only (Routine) - Pending Review Specialty Diagnoses / Procedures Referred By Contac Referred To Contact XR IMAGING Diagnoses Bilateral ureteral calculi Procedures XR ABDOMEN 1V SUPINE RADIOLOGIC EXAM ABDOMEN 1 VIEW Dale Mckeon MD [address] [place] [address] Xr Imaging Referral ID Status Reason Start Date Expiration Date Visits Requested Visits Authorized [id number] Pending Review Auto-Generat ed Referral 04/19/2021 05/12/2022 1 1 [facility] for referral (narrative)* Diagnostic Procedure Only (Routine) - Closed Specialty Diagnoses / Procedures Referred By Contac t Referred To Contact XR IMAGING Diagnoses Bilateral ureteral calculi Procedures XR ABDOMEN 1V SUPINE RADIOLOGIC EXAM ABDOMEN 1 VIEW Dale Mckeon MD [address] [place] [address] Xr Imaging Referral ID Status Reason Start Date Expiration Date V isits Requested Visits Authorized [id number] Closed Auto-Generate d Referral 04/19/2021 05/12/2022 1 1 [facility] for referral (narrative)* Diagnostic Procedure Only (Routine) - Closed Specialty Diagnoses / Procedures Referred By Contac t Referred To Contact XR IMAGING Diagnoses 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, multiple sites Malaise and fatigue 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 Procedures XR FOOT GENERAL 3V AP/LAT/OBL LEFT RADEX FOOT COMPLETE MINIMUM 3 VIEWS Maurisio Disla MD [address] [facility] [address] [place] [address] Xr Imaging Referral ID Status Reason Start Date Expiration Date V isits Requested Visits Authorized [id number] Closed Auto-Generate d Referral 01/30/2022 03/01/2023 1 1 * Diagnostic Procedure Only (Routine) - Closed Specialty Diagnoses / Procedures Referred By Juliana t Referred To Contact XR IMAGING Diagnoses 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, multiple sites Malaise and fatigue 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 [address] [place] [address] Xr Imaging Referral ID Status Reason Start Date Expiration Date V isits Requested Visits Authorized [id number] Closed Auto-Generate d Referral 01/30/2022 03/01/2023 1 1 * Diagnostic Procedure Only (Routine) - Closed Specialty Diagnoses / Procedures Referred By Juliana t Referred To Contact XR IMAGING Diagnoses 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, multiple sites Malaise and fatigue Seronegative rheumatoid arthritis (HCC) half-way current use of systemic steroids Procedures XR HAND GENERAL 3V PA/LAT/OBL RIGHT RADEX HAND MINIMUM 3 VIEWS Maurisio Disla MD [address] [facility] [address] [place] [address] Xr Imaging Referral ID Status Reason Start Date Expiration Date V isits Requested Visits Authorized [id number] Closed Auto-Generate d Referral 01/30/2022 03/01/2023 1 1 * Diagnostic Procedure Only (Routine) - Closed Specialty Diagnoses / Procedures Referred By Juliana t Referred To Contact XR IMAGING Diagnoses 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, multiple sites Malaise and fatigue Seronegative rheumatoid arthritis (HCC) half-way current use of systemic steroids Procedures XR HAND GENERAL 3V PA/LAT/OBL LEFT RADEX HAND MINIMUM 3 VIEWS Maurisio Disla MD [address] [facility] [address] [place] [address] Xr Imaging Referral ID Status Reason Start Date Expiration Date V isits Requested Visits Authorized [id number] Closed Auto-Generate d Referral 01/30/2022 03/01/2023 1 1 [facility] for referral (narrative)* Diagnostic Procedure Only (Routine) - Closed Specialty Diagnoses / Procedures Referred By Juliana duncan Referred To Contact XR IMAGING Diagnoses 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, multiple sites Malaise and fatigue Seronegative rheumatoid arthritis (HCC) half-way current use of systemic steroids Procedures XR FOOT GENERAL 3V AP/LAT/OBL LEFT RADEX FOOT COMPLETE MINIMUM 3 VIEWS Maurisio Disla MD [address] [facility] [address] [place] [address] Xr Imaging Referral ID Status Reason Start Date Expiration Date V isits Requested Visits Authorized [id number] Closed Auto-Generate d Referral 01/30/2022 03/01/2023 1 1 * Diagnostic Procedure Only (Routine) - Closed Specialty Diagnoses / Procedures Referred By Juliana t Referred To Contact XR IMAGING Diagnoses 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, multiple sites Malaise and fatigue 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 Procedures XR FOOT GENERAL 3V AP/LAT/OBL RIGHT RADEX FOOT COMPLETE MINIMUM 3 VIEWS Maurisio Disla MD [address] [place] [address] Xr Imaging Referral ID Status Reason Start Date Expiration Date V isits Requested Visits Authorized [id number] Closed Auto-Generate d Referral 01/30/2022 03/01/2023 1 1 * Diagnostic Procedure Only (Routine) - Closed Specialty Diagnoses / Procedures Referred By Contac t Referred To Contact XR IMAGING Diagnoses 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, multiple sites Malaise and fatigue Seronegative rheumatoid arthritis (HCC) half-way current use of systemic steroids Procedures XR HAND GENERAL 3V PA/LAT/OBL RIGHT RADEX HAND MINIMUM 3 VIEWS Maurisio Disla MD [address] [facility] [address] [place] [address] Xr Imaging Referral ID Status Reason Start Date Expiration Date V isits Requested Visits Authorized [id number] Closed Auto-Generate d Referral 01/30/2022 03/01/2023 1 1 * Diagnostic Procedure Only (Routine) - Closed Specialty Diagnoses / Procedures Referred By Contac t Referred To Contact XR IMAGING Diagnoses 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, multiple sites Malaise and fatigue Seronegative rheumatoid arthritis (HCC) half-way current use of systemic steroids Procedures XR HAND GENERAL 3V PA/LAT/OBL LEFT RADEX HAND MINIMUM 3 VIEWS Maurisio Disla MD [address] [address] Xr Imaging Referral ID Status Reason Start Date Expiration Date V isits Requested Visits Authorized [id number] Closed Auto-Generate d Referral 01/30/2022 03/01/2023 1 1 [facility] for referral (narrative)* Diagnostic Procedure Only (Routine) - Closed Specialty Diagnoses / Procedures Referred By Contac t Referred To Contact XR IMAGING Diagnoses Seronegative rheumatoid arthritis (HCC) Malaise and fatigue 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, multiple sites half-way current use of systemic steroids Procedures XR LUMBAR LIMITED 2V AP/LAT RADEX SPINE LUMBOSACRAL 2/3 VIEWS Maurisio Disla MD [address] 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 Procedures XR HIP BILATERAL 5V PEL/AP/LAT EACH HIP RADEX HIPS BILATERAL WITH PELVIS MINIMUM 5 VIEWS Maurisio Disla MD [address] [place] [address] Xr Imaging Referral ID Status Reason Start Date Expiration Date V isits Requested Visits Authorized [id number] Closed Auto-Generate d Referral 05/02/2022 06/01/2023 1 1 * Diagnostic Procedure Only (Routine) - Closed Specialty Diagnoses / Procedures Referred By Contac t Referred To Contact XR IMAGING Diagnoses Seronegative rheumatoid arthritis (HCC) Malaise and fatigue 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, multiple sites 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 Procedures XR SACROILIAC JOINTS 2V AP PELVIS/FERGUESON RADIOLOGIC EXAMINATION SACROILIAC JNTS <3 VIEWS Maurisio Disla MD [address] [place] [address] Xr Imaging Referral ID Status Reason Start Date Expiration Date V isits Requested Visits Authorized [id number] Closed Auto-Generate d Referral 05/02/2022 06/01/2023 1 1 [facility] for visit Narrative* Diagnostic Procedure Only (Routine) - Closed Specialty Diagnoses / Procedures Referred By Contac t Referred To Contact XR IMAGING Diagnoses Bilateral ureteral calculi Procedures XR ABDOMEN 1V SUPINE RADIOLOGIC EXAM ABDOMEN 1 VIEW Dale Mckeon MD [address] [place] [address] Xr Imaging Referral ID Status Reason Start Date Expiration Date V isits Requested Visits Authorized [id number] Closed Auto-Generate d Referral 04/19/2021 05/12/2022 1 1 [facility] for visit Narrative* Diagnostic Procedure Only (Routine) - Closed Specialty Diagnoses / Procedures Referred By Contac t Referred To Contact XR IMAGING Diagnoses 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, multiple sites Malaise and fatigue 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 Advance Directive(s) 04/11/2021 1:38 AM Documents on File Type Date Recorded Patient Clinical Quality Assurance Specialist Expl anation Advance Directive(s) 04/11/2021 1:38 AM Documents on File Type Date Recorded Patient Clinical Quality Assurance Specialist Expl anation Advance Directive(s) 05/01/2021 5:53 AM Advance Directive(s) 04/11/2021 1:38 AM Reason for Referral Specialty Diagnoses / Procedures Referred By Contac t Referred To Contact CT IMAGING Diagnoses Left upper quadrant abdominal pain Left flank pain Procedures CT ABD/PEL WO IVCON CT ABD & PELVIS W/O CONTRAST Shelbie Hopkins, [employer] [address] [place] [address] Ct Imaging Referral ID Status Reason Start Date Expiration Date Visits Requested Visits Authorized [id number] Incomplete Auto-Generat ed Referral 07/13/2021 08/12/2022 1 1 Referral ID Status Reason Start Date Expiration Date Visits Requested Visits Authorized [id number] Pending Review Auto-Generat ed Referral 07/13/2021 08/12/2022 1 1 Specialty Diagnoses / Procedures Referred By Contac t Referred To Contact Diagnoses Seronegative rheumatoid arthritis (HCC) Malaise and fatigue 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, multiple sites half-way current use of systemic steroids Maurisio Disla MD [address] [place] [address] Referral ID Status Reason Start Date Expiration Date V isits Requested Visits Authorized [id number] Pending Review 1 1 Specialty Diagnoses / Procedures Referred By Contac t Referred To Contact XR IMAGING Diagnoses Seronegative rheumatoid arthritis (HCC) Malaise and fatigue 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, multiple sites half-way current use of systemic steroids Procedures XR LUMBAR LIMITED 2V AP/LAT RADEX SPINE LUMBOSACRAL 2/3 VIEWS Maurisio Disla MD [address] [place] [address] Xr Imaging Referral ID Status Reason Start Date Expiration Date V isits Requested Visits Authorized [id number] Closed Auto-Generate d Referral 05/02/2022 06/01/2023 1 1 Specialty Diagnoses / Procedures Referred By Contac t Referred To Contact XR IMAGING Diagnoses Seronegative rheumatoid arthritis (HCC) Malaise and fatigue 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, multiple sites 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 Procedures XR HIP BILATERAL 5V PEL/AP/LAT EACH HIP RADEX HIPS BILATERAL WITH PELVIS MINIMUM 5 VIEWS Maurisio Disla MD [address] [facility] [address] [place] [address] Xr Imaging Referral ID Status Reason Start Date Expiration Date V isits Requested Visits Authorized [id number] Closed Auto-Generate d Referral 05/02/2022 06/01/2023 1 1 Specialty Diagnoses / Procedures Referred By Contpankaj t Referred To Contact XR IMAGING Diagnoses Seronegative rheumatoid arthritis (HCC) Malaise and fatigue 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, multiple sites half-way current use of systemic steroids Procedures XR SACROILIAC JOINTS 2V AP PELVIS/FERGUESON RADIOLOGIC EXAMINATION SACROILIAC JNTS <3 VIEWS Maurisio Disla MD [address] [place] [address] Xr Imaging Referral ID Status Reason Start Date Expiration Date V isits Requested Visits Authorized [id number] Closed Auto-Generate d Referral 05/02/2022 06/01/2023 1 1 Additional Source Comments INFORMATION SOURCE (unrecogn ized section and content) DATE CREATED AUTHOR AUTHOR'S ORGANIZ ATION 10/08/2017 [facility] DATE CREATED AUTHOR AUTHOR'S ORGANIZ ATION 09/03/2022 [facility] DATE CREATED AUTHOR AUTHOR'S ORGANIZ ATION 12/13/[address] [facility] DATE CREATED AUTHOR AUTHOR'S ORGANIZ ATION 03/11/2023 [facility] Source Comments (unrecognize d section and content) In the event this informatio n is protected by the Federal Confidentiality of Alcohol and Drug Abuse Patient Records regulations: The Federal rules restrict any use of the information to criminally investigate or prosecute any alcohol or drug abuse patient.[facility] the event this information is protected by the Federal Confidentiality of Alcohol and Drug Abuse Patient Records regulations: The Federal rules restrict any use of the information to criminally investigate or prosecute any alcohol or drug abuse patient.[facility] the event this information is protected by the Federal Confidentiality of Alcohol and Drug Abuse Patient Records regulations: The Federal rules restrict any use of the information to criminally investigate or prosecute any alcohol or drug abuse patient.[facility] the event this information is protected by the Federal Confidentiality of Alcohol and Drug Abuse Patient Records regulations: The Federal rules restrict any use of the information to criminally investigate or prosecute any alcohol or drug abuse patient.[facility] the event this information is protected by the Federal Confidentiality of Alcohol and Drug Abuse Patient Records regulations: The Federal rules restrict any use of the information to criminally investigate or prosecute any alcohol or drug abuse patient.[facility] Center[facility] the event this information is protected by the Federal Confidentiality of Alcohol and Drug Abuse Patient Records regulations: The Federal rules restrict any use of the information to criminally investigate or prosecute any alcohol or drug abuse patient.[facility] Center[facility] the event this information is protected by the Federal Confidentiality of Alcohol and Drug Abuse Patient Records regulations: The Federal rules restrict any use of the information to criminally investigate or prosecute any alcohol or drug abuse patient.[facility] Center[facility] the event this information is protected by the Federal Confidentiality of Alcohol and Drug Abuse Patient Records regulations: The Federal rules restrict any use of the information to criminally investigate or prosecute any alcohol or drug abuse patient.[facility] Center[facility] the event this information is protected by the Federal Confidentiality of Alcohol and Drug Abuse Patient Records regulations: The Federal rules restrict any use of the information to criminally investigate or prosecute any alcohol or drug abuse patient.[facility] Center[facility] the event this information is protected by the Federal Confidentiality of Alcohol and Drug Abuse Patient Records regulations: The Federal rules restrict any use of the information to criminally investigate or prosecute any alcohol or drug abuse patient.[facility] Center[facility] the event this information is protected by the Federal Confidentiality of Alcohol and Drug Abuse Patient Records regulations: The Federal rules restrict any use of the information to criminally investigate or prosecute any alcohol or drug abuse patient.[facility] Center[facility] the event this information is protected by the Federal Confidentiality of Alcohol and Drug Abuse Patient Records regulations: The Federal rules restrict any use of the information to criminally investigate or prosecute any alcohol or drug abuse patient.[facility] Center[facility] the event this information is protected by the Federal Confidentiality of Alcohol and Drug Abuse Patient Records regulations: The Federal rules restrict any use of the information to criminally investigate or prosecute any alcohol or drug abuse patient.[facility] Center[facility] the event this information is protected by the Federal Confidentiality of Alcohol and Drug Abuse Patient Records regulations: The Federal rules restrict any use of the information to criminally investigate or prosecute any alcohol or drug abuse patient.[facility] Center[facility] the event this information is protected by the Federal Confidentiality of Alcohol and Drug Abuse Patient Records regulations: The Federal rules restrict any use of the information to criminally investigate or prosecute any alcohol or drug abuse patient.[facility] Center[facility] the event this information is protected by the Federal Confidentiality of Alcohol and Drug Abuse Patient Records regulations: The Federal rules restrict any use of the information to criminally investigate or prosecute any alcohol or drug abuse patient.[facility] CenterIn the event this information is protected by the Federal Confidentiality of Alcohol and Drug Abuse Patient Records regulations: The Federal rules restrict any use of the information to criminally investigate or prosecute any alcohol or drug abuse patient.[facility] CenterIn the event this information is protected by the Federal Confidentiality of Alcohol and Drug Abuse Patient Records regulations: The Federal rules restrict any use of the information to criminally investigate or prosecute any alcohol or drug abuse patient.[facility] CenterIn the event this information is protected by the Federal Confidentiality of Alcohol and Drug Abuse Patient Records regulations: The Federal rules restrict any use of the information to criminally investigate or prosecute any alcohol or drug abuse patient.[facility] CenterIn the event this information is protected by the Federal Confidentiality of Alcohol and Drug Abuse Patient Records regulations: The Federal rules restrict any use of the information to criminally investigate or prosecute any alcohol or drug abuse patient.[facility] CenterIn the event this information is protected by the Federal Confidentiality of Alcohol and Drug Abuse Patient Records regulations: The Federal rules restrict any use of the information to criminally investigate or prosecute any alcohol or drug abuse patient.[facility] CenterIn the event this information is protected by the Federal Confidentiality of Alcohol and Drug Abuse Patient Records regulations: The Federal rules restrict any use of the information to criminally investigate or prosecute any alcohol or drug abuse patient.[facility] CenterIn the event this information is protected by the Federal Confidentiality of Alcohol and Drug Abuse Patient Records regulations: The Federal rules restrict any use of the information to criminally investigate or prosecute any alcohol or drug abuse patient.[facility] CenterIn the event this information is protected by the Federal Confidentiality of Alcohol and Drug Abuse Patient Records regulations: The Federal rules restrict any use of the information to criminally investigate or prosecute any alcohol or drug abuse patient.[facility] Reason for Visit (unrecogniz ed section and [...] ABD & PELVIS W/O CONTRAST Shelbie Hopkins APRN.[employer] [address] [place] [address] Ct Imaging Referral ID Status Reason Start Date Expiration Date Visits Requested Visits Authorized [id number] Pending Review Auto-Generat ed Referral 07/13/2021 08/12/2022 1 1 Reason Comments F/U 1 month Reason Comments Medication Preauthorization [id number] Reason Comments Rheumatoid Arthritis Reason Comments Refill Request Reason Onset Date Comments Refill Request 01/30/2023 Care Teams (unrecognized sec tion and content) Primary Health Organisation Manager Relationship Specialty Start Date End Date Daniela Diallo MD [address] [facility], [place] [id number] PCP - General Family Practice 04/11/21 Primary Health Organisation Manager Relationship Specialty Start Date End Date Daniela Diallo MD [address] [facility] [place], [place] [address] PCP - General Family Practice 04/11/21 Primary Health Organisation Manager Relationship Specialty Start Date End Date Daniela Diallo MD [address] [facility], [place] [address] PCP - General Family Practice 04/11/21 Primary Health Organisation Manager Relationship Specialty Start Date End Date Daniela Diallo MD [address] [facility] [place], [place] [id number] PCP - General Family Practice 04/11/21 Primary Health Organisation Manager Relationship Specialty Start Date End Date Daniela Diallo MD [address] [place] [address] PCP - General Family Practice 04/11/21 Primary Health Organisation Manager Relationship Specialty Start Date End Date Daniela Diallo MD [address] [facility] [place] [address] PCP - General Family Practice 04/11/21 Primary Health Organisation Manager Relationship Specialty Start Date End Date Daniela Diallo MD [address] [facility] [place] [address] PCP - General Family Practice 04/11/21 Primary Health Organisation Manager Relationship Specialty Start Date End Date Daniela Diallo MD [address] [place] [address] PCP - General Family Medicine 04/11/21 Марина Bain [address] [place] [address] Rheumatology 01/30/22 01/30/22 Primary Health Organisation Manager Relationship Specialty Start Date End Date Daniela Diallo MD [address] [place] [address] PCP - General Family Medicine 04/11/21 Марина Bain [address] [place] [address] Rheumatology 01/30/22 01/30/22 Primary Health Organisation Manager Relationship Specialty Start Date End Date Daniela Diallo MD [address] [place] [address] PCP - General Family Medicine 04/11/21 Primary Health Organisation Manager Relationship Specialty Start Date End Date Daniela Diallo MD [address] [place] [address] PCP - General Family Medicine 04/11/21 Primary Health Organisation Manager Relationship Specialty Start Date End Date Daniela Diallo MD [address] [place] [address] PCP - General Family Medicine 04/11/21 Primary Health Organisation Manager Relationship Specialty Start Date End Date Daniela Diallo MD [address] [place] [address] PCP - General Family Medicine 04/11/21 Primary Health Organisation Manager Relationship Specialty Start Date End Date Daniela Diallo MD [address] [place] [address] PCP - General Family Medicine 04/11/21 Primary Health Organisation Manager Relationship Specialty Start Date End Date Daniela Diallo MD [address] [place], [place] [address] PCP - General Family Medicine 04/11/21 Primary Health Organisation Manager Relationship Specialty Start Date End Date Daniela Diallo MD [address] [place], [place] [address] PCP - General Family Medicine 04/11/21 Primary Health Organisation Manager Relationship Specialty Start Date End Date Daniela Diallo MD [address] [place], [place] [address] PCP - General Family Medicine 04/11/21 Primary Health Organisation Manager Relationship Specialty Start Date End Date Daniela Diallo MD [address] [place], [place] [address] PCP - General Family Medicine 04/11/21 FOR [...] BE BASED ON THE PRIMARY CLINICAL RECORDS. [facility] [employer] [facility]. provides no warranty or guarantee of the accuracy or completeness of information in this document.
[2023-05-08] MEDS: Zolpidem Tartrate 5 MG Tablet PO (22:20)
== END | disposition home or self-care (01) ==
LOC: SL 19:47
PROVIDERS: PCP Family Medicine; Visit Provider Nurse Practitioner Acute Care
DX: G47.10 Hypersomnia, unspecified (principal)
CPT/HCPCS: 95810

== ENCOUNTER → 2023-09-11 | Outpatient (CLI) | payer MEDICAID, SELFPAY ==
--- NOTE | 2023-09-11 12:56 | RAD_ITS ---
STUDY: X-RAY CHEST REASON FOR EXAM: Female, 53 years old. Bronchitis TECHNIQUE: PA and lateral views of the chest. COMPARISON: Comparison is made with prior study dated October 21, 2017. FINDINGS: The lungs are clear and expanded. Scattered calcified granulomas. There is no demonstrated pleural abnormality. Normal size heart. Normal mediastinum and tiana. Normal visualized pulmonary arteries. Normal visualized aortic arch and descending thoracic aorta. There are degenerative changes of the visualized thoracic spine. Normal visualized ribs, clavicles, and shoulders. There is no demonstrated abnormality of the visualized soft tissue structures of the upper abdomen. RAD/Chest PA and Lateral IMPRESSION: Normal x-ray examination of the chest. Electronically Signed: Kenn Leggett MD at 13:39 EDT ,
== END | disposition home or self-care (01) ==
LOC: MTRAD 12:53
PROVIDERS: PCP Family Medicine; Referring Provider Family Medicine; Visit Provider Family Medicine
DX: J40 Bronchitis, not specified as acute or chronic (principal)
CPT/HCPCS: 71046

== ENCOUNTER → 2024-02-06 | Outpatient (CLI) | payer MEDICAID, SELFPAY ==
[2024-02-06 10:34] LABS: Erythrocyte Sedimentation Rate 6 mm/hr (0-30)
[2024-02-06 11:38] LABS: Hemoglobin A1c 6.1 % (3.8-5.6)
[2024-02-06 13:04] LABS: Vitamin B12 > 2000 pg/mL (211-911); Vitamin D,25 Hydroxy 73.8 ng/mL
[2024-02-06 13:16] LABS: ALB/GLOB Ratio 1.1 RATIO (0.9-2.4); AST(SGOT) 29 U/L (15-37); Alanine Aminotransfer ALT/SGPT 27 U/L (13-56); Albumin, Serum 3.9 g/dL (3.2-5.0); Alkaline Phosphatase 68 U/L (45-117); Anion Gap 7 (5-15); BUN 14 mg/dL (7-18); BUN/Creat Ratio 13.7 RATIO (10-20); Calcium,Total 9.2 mg/dL (8.5-10.1); Chloride 108 mmol/L (98-107); Cholesterol 138 mg/dL (200); Creatinine, Serum 1.02 mg/dL (0.55-1.02); EST Glomerular Filtration Rate 61 mL/min (>60); Est Glom Filt Rate - Afr Amer 73 mL/min (>60); Globulin 3.4 g/dL (2.2-4.2); Glucose 152 mg/dL (74-106); High Density Lipoprotein 53 mg/dL; Potassium 4.1 mmol/L (3.5-5.1); Protein, Total 7.3 g/dL (6.4-8.2); Sodium Level 140 mmol/L (136-145); Triglycerides 275 mg/dL; Very Low Density Lipoprotein 55 mg/dL (5-40)
== END | disposition home or self-care (01) ==
LOC: MFPLAB 08:54
PROVIDERS: PCP Family Medicine; Referring Provider Family Medicine; Visit Provider Family Medicine
DX: E55.9 Vitamin D deficiency, unspecified (principal); E11.65 Type 2 diabetes mellitus with hyperglycemia
CPT/HCPCS: 36415; 80053; 80061; 82306; 82607; 83036; 84443; 85652

== ENCOUNTER → 2024-06-11 | Outpatient (CLI) | payer BC, MEDICAID, SELFPAY ==
--- NOTE | 2024-06-11 11:42 | US_ITS ---
PROCEDURE: ULTRASOUND THYROID REASON FOR EXAM: FOLLOW-UP NODULE. TECHNIQUE: Real-time grayscale and color flow imaging was performed along with routine image documentation. COMPARISON: Ultrasound dated 04/29/2023 FINDINGS: Right thyroid lobe measures 4.8 x 1.7 x 1.4 cm. Left thyroid lobe measures 4.6 x 1.3 x 1.0 cm.. Isthmus thickness is 0.30 cm.. Thyroid Size: Normal Background Echotexture: Homogeneous. Thyroid Nodules: Bilateral. Right NODULE: Midpole, mixed cystic and solid, 1.9 x 1.0 x 1.0 cm, very hypoechoic, well-circumscribed, wider than tall, with macrocalcification, TR 4. NODULE: Inferior pole, mixed cystic and solid, 0.7 x 0.6 x 0.4 cm, hypoechoic, well-circumscribed, wider than tall, no calcifications, TR 4. NODULE: Inferior pole, solid, 0.5 x 0.5 x 0.3 cm, hyperechoic, wider than tall, well-circumscribed, no calcifications, TR 3. Left NODULE: Midpole, mixed cystic and solid, 0.4 cm, hypoechoic, rounded, well- circumscribed, no calcifications, TR 4. US/Thyroid IMPRESSION: 1. A TR 4 category, very hypoechoic, nodule in the right midpole. Tissue samp ling with FNA is recommended. 2. TR 4 and TR 3 micronodule in the right inferior pole and left midpole. No FNA warranted. Follow-up ultrasound recommended in 12 months. Reading Location: [place] [address]
== END | disposition home or self-care (01) ==
PROVIDERS: PCP Family Medicine; Referring Provider Family Medicine; Visit Provider Family Medicine
DX: E04.1 Nontoxic single thyroid nodule (principal)
CPT/HCPCS: 76536